=== PATIENT | female | born 1935 | race Caucasian/White ===

== ENCOUNTER → 2016-07-12 | Outpatient (REF) | payer MEDICARE ==
[2016-07-12 18:45] LABS: BASO # 0.1 K/mm3 (0.0-0.2); BASO % 1.4 % (0.0-1.0); EOS # 0.3 K/mm3 (0.0-0.50); EOS % 4.9 % (0.0-3.0); LARGE UNSTAINED CELL # 0.1 K/mm3 (0.0-0.4); LARGE UNSTAINED CELL % 1.1 % (0.0-4.0); LYMPH % 18.1 % (24.0-44.0); MEAN CORPUSCULAR HEMOGLOBIN 30.2 pg (27.0-33.0); MEAN CORPUSCULAR HGB CONC 32.1 g/dl (32.0-36.5); MEAN CORPUSCULAR VOLUME 94.2 fl (80.0-96.0); MONO # 0.4 K/mm3 (0.0-0.8); MONO % 6.6 % (0.0-5.0); NEUTROPHILS # 3.6 K/mm3 (1.8-7.7); PLATELET COUNT, AUTOMATED 242 k/mm3 (150-450); RED CELL DISTRIBUTION WIDTH 13.8 % (11.5-14.5); WHITE BLOOD COUNT 5.3 K/mm3 (4.0-10.0)
[2016-07-12 19:25] LABS: FOLATE > 24.0 NG/ML; VITAMIN B12 LEVEL 745 PG/ML
[2016-07-12 19:49] LABS: ALBUMIN 3.7 GM/DL (3.2-5.2); ALBUMIN/GLOBULIN RATIO 1.16 (1.00-1.93); ALKALINE PHOSPHATASE 101 U/L (45-117); ALT/SGPT 26 U/L (12-78); ANION GAP 11 MEQ/L (8-16); AST/SGOT 19 U/L (15-37); BILIRUBIN,TOTAL 0.3 MG/DL (0.2-1.0); BLOOD UREA NITROGEN 51 MG/DL (7-18); CALCIUM LEVEL 9.2 MG/DL (8.8-10.2); CARBON DIOXIDE LEVEL 27 MEQ/L (21-32); CHLORIDE LEVEL 105 MEQ/L (98-107); CREATININE FOR GFR 1.76 MG/DL (0.55-1.02); FREE T4 1.02 NG/DL (0.76-1.46); GLOMERULAR FILTRATION RATE 29.4 (>32); GLUCOSE, FASTING 112 MG/DL (83-110); SODIUM LEVEL 143 MEQ/L (136-145); TOTAL PROTEIN 6.9 GM/DL (6.4-8.2)
[2016-07-12 21:54] LABS: ERYTHROCYTE SEDIMENTATION RATE 46 mm/hr (0-30)
== END ==
LOC: M SFHCCLAY 11:01
PROVIDERS: ATTEND Family Medicine
DX: R41.3 Other amnesia (principal)

== ENCOUNTER → 2016-10-16 | Outpatient (CLI) | payer MEDICARE ==
--- NOTE | 2016-10-16 15:16 | REP ---
RIGHT ELBOW: Two views of the right elbow are performed. There is no acute fracture or dislocation. Mild diffuse spurring is noted with mild joint space narrowing. There is mild soft tissue swelling at the olecranon. IMPRESSION: Mild soft tissue swelling of the olecranon could indicate bursitis. Mild degenerative changes. Signed by Seferino Bowman MD 10/17/2016 04:44 P
== END ==
LOC: M CLY 11:33
PROVIDERS: ATTEND Family Medicine
DX: M77.8 Other enthesopathies, not elsewhere classified (principal); R41.3 Other amnesia; E03.9 Hypothyroidism, unspecified
CPT/HCPCS: 73070; 80048; 84443; 90670; G0009; G0463

== ENCOUNTER → 2016-10-24 | Outpatient (REF) | payer MEDICARE | LOC: M SMT 16:56 | PROVIDERS: ATTEND Specialist | DX: R32 Unspecified urinary incontinence (principal) | CPT/HCPCS: 51798; 81002; 87086; G0463 ==

== ENCOUNTER → 2016-10-29 | Outpatient (CLI) | payer MEDICARE ==
--- NOTE | 2016-10-29 18:05 | REP ---
RENAL ULTRASOUND: REASON: Incontinence. COMPARISON: None. Multiple ultrasonographic images of the right kidney show the right kidney to measure 10.3 x 4.6 x 4.6 cm. The renal cortex is thinned and there are diffuse increased echoes seen throughout the cortex with maintenance of cortical medullary differentiation. There are no cystic or solid masses. The left kidney measures 9.3 x 4.1 x 4.8 cm. There is renal cortical thinning with slightly increased echoes throughout the renal cortex . In the interpolar region of the left kidney there is a 3.7 x 3.8 x 3.9 cm sized nearly anechoic structure but with irregular margins. A mural nodule can not be ruled out on the images provided. In addition, also seen in the left there is much smaller 9 mm sized anechoic structure which exhibits posterior wall advancement an increase through transmission. Pre- and post- void urinary bladder volume calculations were obtained. The pre void urinary bladder volume calculation is 78 mL and the postvoid is 23 mL. On scanning the right kidney the technologist noted cholelithiasis. IMPRESSION: 1. Bilateral renal cortical thinning and increased echoes consistent with medical renal disease. Correlate clinically. 2. Left sided renal cysts, however, I can not confirm that the large left cyst represents a Bosniak class 1 or Bosniak class 2 cyst. It is recommended that the patient obtain pre and post contrast enhanced renal CT so it can be compared to the prior abdominal CT of 09/15/2013 to ensure the renal cysts on the left are stable and without evidence of malignant transformation. Signed by Steven Dumont DO 10/30/2016 10:20 A
== END ==
LOC: M RAD 12:55
PROVIDERS: ATTEND Nurse Practitioner Women's Health
DX: R32 Unspecified urinary incontinence (principal); N28.1 Cyst of kidney, acquired

== ENCOUNTER → 2016-12-31 | Outpatient (REF) | payer MEDICARE ==
[2016-12-31 12:44] LABS: MEAN CORPUSCULAR HEMOGLOBIN 30.4 pg (27.0-33.0); MEAN CORPUSCULAR VOLUME 95.1 fl (80.0-96.0); RED CELL DISTRIBUTION WIDTH 12.8 % (11.5-14.5); WHITE BLOOD COUNT 4.5 K/mm3 (4.0-10.0)
[2016-12-31 13:19] LABS: ALBUMIN 3.6 GM/DL (3.2-5.2); ALBUMIN/GLOBULIN RATIO 1.2 (1.00-1.93); BILIRUBIN,TOTAL 0.5 MG/DL (0.2-1.0); CALCIUM LEVEL 9.9 MG/DL (8.8-10.2); CREATININE FOR GFR 1.91 MG/DL (0.55-1.02); GLOMERULAR FILTRATION RATE 26.7 (>32); POTASSIUM SERUM 4.6 MEQ/L (3.5-5.1); TOTAL PROTEIN 6.6 GM/DL (6.4-8.2)
== END ==
LOC: M LABDRAWC 11:56
PROVIDERS: ATTEND Physician Assistant
DX: I50.32 Chronic diastolic (congestive) heart failure (principal); E78.00 Pure hypercholesterolemia, unspecified

== ENCOUNTER → 2016-12-31 | Outpatient (REF) | payer MEDICARE ==
[2016-12-31 13:19] LABS: CALCIUM LEVEL 9.6 MG/DL (8.8-10.2); CREATININE FOR GFR 1.9 MG/DL (0.55-1.02); FREE T4 1.08 NG/DL (0.76-1.46); GLOMERULAR FILTRATION RATE 26.9 (>32); POTASSIUM SERUM 4.6 MEQ/L (3.5-5.1)
== END ==
LOC: M SFHCCLAY 09:05
PROVIDERS: ATTEND Family Medicine
DX: E03.9 Hypothyroidism, unspecified (principal); I50.32 Chronic diastolic (congestive) heart failure; E78.00 Pure hypercholesterolemia, unspecified

== ENCOUNTER → 2017-01-20 | Outpatient (REF) | payer MEDICARE ==
[2017-01-20 13:10] LABS: MEAN CORPUSCULAR HEMOGLOBIN 30.4 pg (27.0-33.0); MEAN CORPUSCULAR HGB CONC 32.5 g/dl (32.0-36.5); MEAN CORPUSCULAR VOLUME 93.3 fl (80.0-96.0); RED CELL DISTRIBUTION WIDTH 12.7 % (11.5-14.5); WHITE BLOOD COUNT 4.2 K/mm3 (4.0-10.0)
[2017-01-20 13:27] LABS: ALBUMIN 3.8 GM/DL (3.2-5.2); CALCIUM LEVEL 10.5 MG/DL (8.8-10.2); CREATININE FOR GFR 1.63 MG/DL (0.55-1.02); GLOMERULAR FILTRATION RATE 32.1 (>32); PHOSPHORUS LEVEL 3.7 MG/DL (2.5-4.9); POTASSIUM SERUM 4.1 MEQ/L (3.5-5.1)
== END ==
LOC: M LABDRAWC 11:47
PROVIDERS: ATTEND Physician Assistant
DX: I50.32 Chronic diastolic (congestive) heart failure (principal)

== ENCOUNTER → 2017-02-26 | Outpatient (CLI) | payer MEDICARE ==
--- NOTE | 2017-02-26 15:41 | REP ---
Clinical: Cervical pain. Arthritis. Technique: AP, lateral, flexion/extension, bilateral oblique and open mouth views of the cervical spine. Findings: Evaluation is severely limited by significant osteopenia and marked, advanced multilevel degenerative disc osteophyte complexes throughout the entire cervical spine. Findings include hypertrophic changes and narrowing to the neural foramina on oblique images. No obvious acute fracture / compression injury or subluxation. Impression: Marked, advanced osteopenia and multilevel degenerative changes throughout the cervical spine.
== END ==
LOC: M CLY 14:51
PROVIDERS: ATTEND Family Medicine
DX: M46.92 Unspecified inflammatory spondylopathy, cervical region (principal); M50.30 Other cervical disc degeneration, unspecified cervical region; M85.80 Other specified disorders of bone density and structure, unspecified site
CPT/HCPCS: 72050; G0463

== ENCOUNTER → 2017-05-05 | Outpatient (REF) | payer MEDICARE ==
[2017-05-06 12:57] LABS: ALBUMIN 3.9 GM/DL (3.2-5.2); CALCIUM LEVEL 9.7 MG/DL (8.8-10.2); CREATININE FOR GFR 1.66 MG/DL (0.55-1.02); GLOMERULAR FILTRATION RATE 31.3 (>32); PHOSPHORUS LEVEL 3.6 MG/DL (2.5-4.9); POTASSIUM SERUM 4.4 MEQ/L (3.5-5.1)
== END ==
LOC: M LAB REF 11:56
PROVIDERS: ATTEND Physician Assistant
DX: I50.32 Chronic diastolic (congestive) heart failure (principal)

== ENCOUNTER → 2017-08-18 | Outpatient (REF) | payer MEDICARE ==
[2017-08-19 12:40] LABS: ALBUMIN 3.9 GM/DL (3.2-5.2); ALBUMIN/GLOBULIN RATIO 1.22 (1.00-1.93); ALKALINE PHOSPHATASE 66 U/L (45-117); ALT/SGPT 21 U/L (12-78); ANION GAP 7 MEQ/L (8-16); AST/SGOT 24 U/L (7-37); BILIRUBIN,TOTAL 0.6 MG/DL (0.2-1.0); BLOOD UREA NITROGEN 26 MG/DL (7-18); CALCIUM LEVEL 9.5 MG/DL (8.8-10.2); CARBON DIOXIDE LEVEL 31 MEQ/L (21-32); CHLORIDE LEVEL 104 MEQ/L (98-107); CREATININE FOR GFR 1.38 MG/DL (0.55-1.30); GLOMERULAR FILTRATION RATE 38.8 (>32); GLUCOSE, FASTING 101 MG/DL (70-100); POTASSIUM SERUM 4.1 MEQ/L (3.5-5.1); SODIUM LEVEL 142 MEQ/L (136-145); TOTAL PROTEIN 7.1 GM/DL (6.4-8.2)
== END ==
LOC: M LABDRAWC 08-19 12:08
DX: E78.00 Pure hypercholesterolemia, unspecified (principal); I11.0 Hypertensive heart disease with heart failure
CPT/HCPCS: 80053

== ENCOUNTER → 2017-09-10 | Outpatient (REF) | payer MEDICARE ==
[2017-09-10 18:32] LABS: ERYTHROCYTE SEDIMENTATION RATE 49 mm/hr (0-30)
== END ==
LOC: M SFHCCLAY 11:26
DX: R51 Headache (principal)
CPT/HCPCS: 85652

== ENCOUNTER 2017-10-29 15:13 | Inpatient (IN) | payer MEDICARE ==
[2017-10-29 16:20] LABS: BASO % 0.3 % (0.0-1.0); EOS # 0.1 10^3/uL (0.0-0.50); EOS % 0.7 % (0.0-3.0); HEMATOCRIT 32.9 % (36.0-47.0); HEMOGLOBIN 10.8 g/dl (12.0-15.5); IMMATURE GRANULOCYTE % 0.3 % (0-3.0); LYMPH # 1.2 10^3/uL (1.5-4.5); LYMPH % 11.7 % (24.0-44.0); MEAN CORPUSCULAR HEMOGLOBIN 29.3 pg (27.0-33.0); MEAN CORPUSCULAR HGB CONC 32.8 g/dl (32.0-36.5); MEAN CORPUSCULAR VOLUME 89.2 fl (80.0-96.0); MONO % 9.4 % (0.0-5.0); NEUTROPHILS # 8.1 10^3/uL (1.8-7.7); NEUTROPHILS % 77.6 % (36.0-66.0); PLATELET COUNT, AUTOMATED 324 10^3/uL (150-450); RED BLOOD COUNT 3.69 10^6/uL (4.00-5.40); RED CELL DISTRIBUTION WIDTH 13.3 % (11.5-14.5); WHITE BLOOD COUNT 10.4 10^3/uL (4.0-10.0)
[2017-10-29 16:40] LABS: ERYTHROCYTE SEDIMENTATION RATE 73 mm/hr (0-30)
[2017-10-29 16:42] LABS: LACTIC ACID SEPSIS PROTOCOL 0.9 MMOL/L (0.4-2.0)
[2017-10-29 16:43] LABS: ALBUMIN 3.6 GM/DL (3.2-5.2); ALBUMIN/GLOBULIN RATIO 0.95 (1.00-1.93); ALKALINE PHOSPHATASE 93 U/L (45-117); ALT/SGPT 23 U/L (12-78); ANION GAP 6 MEQ/L (8-16); AST/SGOT 26 U/L (7-37); BILIRUBIN,DIRECT 0.4 MG/DL (0.0-0.2); BILIRUBIN,TOTAL 1.1 MG/DL (0.2-1.0); BLOOD UREA NITROGEN 43 MG/DL (7-18); CALCIUM LEVEL 9.2 MG/DL (8.8-10.2); CARBON DIOXIDE LEVEL 33 MEQ/L (21-32); CHLORIDE LEVEL 97 MEQ/L (98-107); CREATININE FOR GFR 1.56 MG/DL (0.55-1.30); GLOMERULAR FILTRATION RATE 33.7 (>32); GLUCOSE, FASTING 90 MG/DL (70-100); NT-PRO BNP 758 PG/ML (<450); POTASSIUM SERUM 3.9 MEQ/L (3.5-5.1); SODIUM LEVEL 136 MEQ/L (136-145); TOTAL PROTEIN 7.4 GM/DL (6.4-8.2)
[2017-10-29 18:23] LABS: APPEARANCE, URINE CLEAR (CLEAR); BACTERIA, URINE AUTO NEGATIVE (NEGATIVE); BILIRUBIN, URINE AUTO NEGATIVE (NEGATIVE); BLOOD, URINE BLOOD NEGATIVE (NEGATIVE); COLOR, URINE STRAW (YELLOW); GLUCOSE, URINE (UA) AUTO NEGATIVE (NEGATIVE); KETONE, URINE AUTO NEGATIVE (NEGATIVE); LEUKOCYTE ESTERASE, URINE AUTO NEGATIVE (NEGATIVE); NITRITE, URINE AUTO NEGATIVE (NEGATIVE); PROTEIN, URINE AUTO NEGATIVE (NEGATIVE); RBC, URINE AUTO 1 /HPF (0-3); SPECIFIC GRAVITY URINE AUTO 1.005 (1.002-1.035); SQUAMOUS EPITHELIAL CELL UR AU 0 /HPF (0-6); UROBILINOGEN, URINE AUTO 0.2 mg/dL (0.0-2.0); WBC, URINE AUTO 0 /HPF (0-3)
[2017-10-29] MEDS: CLINDAMYCIN 300 MG in APPROPRIATE DILUENT 1 EA IV (18:40)
[2017-10-29] MEDS ORDERED: ONDANSETRON 4MG/2ML VIAL (J2405) IV (20:15)
[2017-10-29 20:41] LABS: CPK CREATINE PHOSPHOKINASE 85 U/L (26-192); TROPONIN I < 0.02 NG/ML (< 0.10)
[2017-10-29 20:42] LABS: CK-MB VALUE MASS 2.2 NG/ML (<3.6); MB/CK RELATIVE INDEX 2.58 (< OR =4)
[2017-10-29 20:46] LABS: T UPTAKE 43 % (30-39); THYROXINE (T4) 9.2 UG/DL (4.5-12.0)
[2017-10-29] MEDS: CEFTAROLINE FOSAMIL 400 MG in D5W MINI-BAG PLUS 50 ML IV (21:00)
[2017-10-30] MEDS: SENOKOT S TAB PO ×3 (00:39→20:25)
[2017-10-30] MEDS: HEPARIN SOD (PORCINE) 5000 UNITS/ML VIAL SC ×4 (00:39→20:24)
[2017-10-30 01:08] LABS: CPK CREATINE PHOSPHOKINASE 81 U/L (26-192); TROPONIN I < 0.02 NG/ML (< 0.10)
[2017-10-30 01:09] LABS: CK-MB VALUE MASS 1.7 NG/ML (<3.6); MB/CK RELATIVE INDEX 2.09 (< OR =4)
[2017-10-30] MEDS: LEVOTHYROXINE 25MCG TABLET (0.025MG) PO (05:28)
[2017-10-30 06:05] LABS: HEMATOCRIT 30.6 % (36.0-47.0); MEAN CORPUSCULAR HEMOGLOBIN 29.2 pg (27.0-33.0); MEAN CORPUSCULAR HGB CONC 32.7 g/dl (32.0-36.5); MEAN CORPUSCULAR VOLUME 89.5 fl (80.0-96.0); PLATELET COUNT, AUTOMATED 306 10^3/uL (150-450); RED BLOOD COUNT 3.42 10^6/uL (4.00-5.40); RED CELL DISTRIBUTION WIDTH 13.3 % (11.5-14.5); WHITE BLOOD COUNT 8.7 10^3/uL (4.0-10.0)
[2017-10-30 06:34] LABS: ANION GAP 8 MEQ/L (8-16); BLOOD UREA NITROGEN 42 MG/DL (7-18); CALCIUM LEVEL 9.1 MG/DL (8.8-10.2); CARBON DIOXIDE LEVEL 32 MEQ/L (21-32); CHLORIDE LEVEL 98 MEQ/L (98-107); CREATININE FOR GFR 1.55 MG/DL (0.55-1.30); GLOMERULAR FILTRATION RATE 33.9 (>32); GLUCOSE, FASTING 89 MG/DL (70-100); MAGNESIUM LEVEL 2.7 MG/DL (1.8-2.4); POTASSIUM SERUM 3.7 MEQ/L (3.5-5.1); SODIUM LEVEL 138 MEQ/L (136-145)
[2017-10-30] MEDS: SPIRONOLACTONE 25 MG TAB PO (07:47)
[2017-10-30] MEDS: TORSEMIDE 20 MG TAB PO (07:48)
[2017-10-30] MEDS: ASPIRIN 81 MG ENTERIC TAB PO (07:48)
[2017-10-30] MEDS: DONEPEZIL 5 MG TAB PO (07:48)
[2017-10-30] MEDS: MULTIVITAMINS/MINERALS THERAP 1 TAB PO (07:48)
[2017-10-30] MEDS: CEFTAROLINE FOSAMIL 400 MG in D5W MINI-BAG PLUS 50 ML IV ×2 (07:49→20:25)
[2017-10-31 05:44] LABS: HEMOGLOBIN 9.4 g/dl (12.0-15.5); MEAN CORPUSCULAR HEMOGLOBIN 29.2 pg (27.0-33.0); MEAN CORPUSCULAR HGB CONC 32.4 g/dl (32.0-36.5); MEAN CORPUSCULAR VOLUME 90.1 fl (80.0-96.0); PLATELET COUNT, AUTOMATED 281 10^3/uL (150-450); RED BLOOD COUNT 3.22 10^6/uL (4.00-5.40); WHITE BLOOD COUNT 6.2 10^3/uL (4.0-10.0)
[2017-10-31 06:02] LABS: ANION GAP 5 MEQ/L (8-16); BLOOD UREA NITROGEN 44 MG/DL (7-18); CALCIUM LEVEL 8.7 MG/DL (8.8-10.2); CARBON DIOXIDE LEVEL 32 MEQ/L (21-32); CHLORIDE LEVEL 102 MEQ/L (98-107); CREATININE FOR GFR 1.58 MG/DL (0.55-1.30); GLOMERULAR FILTRATION RATE 33.2 (>32); GLUCOSE, FASTING 95 MG/DL (70-100); MAGNESIUM LEVEL 2.5 MG/DL (1.8-2.4); SODIUM LEVEL 139 MEQ/L (136-145)
[2017-10-31] MEDS: LEVOTHYROXINE 25MCG TABLET (0.025MG) PO (06:21)
[2017-10-31] MEDS: HEPARIN SOD (PORCINE) 5000 UNITS/ML VIAL SC ×3 (06:22→21:14)
[2017-10-31] MEDS: SENOKOT S TAB PO ×2 (08:47→20:34)
[2017-10-31] MEDS: DONEPEZIL 5 MG TAB PO (08:47)
[2017-10-31] MEDS: ASPIRIN 81 MG ENTERIC TAB PO (08:47)
[2017-10-31] MEDS: SPIRONOLACTONE 25 MG TAB PO (08:47)
[2017-10-31] MEDS: MULTIVITAMINS/MINERALS THERAP 1 TAB PO (08:47)
[2017-10-31] MEDS: TORSEMIDE 20 MG TAB PO (08:47)
[2017-10-31] MEDS: CEFTAROLINE FOSAMIL 400 MG in D5W MINI-BAG PLUS 50 ML IV ×2 (08:47→20:34)
[2017-11-01 05:32] LABS: HEMATOCRIT 30.6 % (36.0-47.0); HEMOGLOBIN 9.8 g/dl (12.0-15.5); MEAN CORPUSCULAR HEMOGLOBIN 28.9 pg (27.0-33.0); MEAN CORPUSCULAR VOLUME 90.3 fl (80.0-96.0); PLATELET COUNT, AUTOMATED 318 10^3/uL (150-450); RED BLOOD COUNT 3.39 10^6/uL (4.00-5.40); WHITE BLOOD COUNT 5.3 10^3/uL (4.0-10.0)
[2017-11-01 05:45] LABS: ANION GAP 5 MEQ/L (8-16); BLOOD UREA NITROGEN 39 MG/DL (7-18); CALCIUM LEVEL 9.1 MG/DL (8.8-10.2); CARBON DIOXIDE LEVEL 32 MEQ/L (21-32); CHLORIDE LEVEL 99 MEQ/L (98-107); CREATININE FOR GFR 1.56 MG/DL (0.55-1.30); GLOMERULAR FILTRATION RATE 33.7 (>32); GLUCOSE, FASTING 91 MG/DL (70-100); MAGNESIUM LEVEL 2.6 MG/DL (1.8-2.4); POTASSIUM SERUM 3.8 MEQ/L (3.5-5.1); SODIUM LEVEL 136 MEQ/L (136-145)
[2017-11-01] MEDS: LEVOTHYROXINE 25MCG TABLET (0.025MG) PO (06:34)
[2017-11-01] MEDS: ACETAMINOPHEN TAB 650MG DOSE (2X325MG) PO (06:35)
[2017-11-01] MEDS: HEPARIN SOD (PORCINE) 5000 UNITS/ML VIAL SC ×3 (06:35→21:06)
[2017-11-01] MEDS: ASPIRIN 81 MG ENTERIC TAB PO (08:48)
[2017-11-01] MEDS: DONEPEZIL 5 MG TAB PO (08:48)
[2017-11-01] MEDS: SPIRONOLACTONE 25 MG TAB PO (08:48)
[2017-11-01] MEDS: TORSEMIDE 20 MG TAB PO (08:48)
[2017-11-01] MEDS: CEFTAROLINE FOSAMIL 400 MG in D5W MINI-BAG PLUS 50 ML IV (08:48)
[2017-11-01] MEDS: SENOKOT S TAB PO ×2 (08:48→21:06)
[2017-11-01] MEDS: MULTIVITAMINS/MINERALS THERAP 1 TAB PO (08:48)
[2017-11-01] MEDS: CEPHALEXIN 500 MG CAP PO (21:06)
[2017-11-02 05:50] LABS: HEMATOCRIT 30.8 % (36.0-47.0); HEMOGLOBIN 9.9 g/dl (12.0-15.5); MEAN CORPUSCULAR HEMOGLOBIN 28.8 pg (27.0-33.0); MEAN CORPUSCULAR HGB CONC 32.1 g/dl (32.0-36.5); MEAN CORPUSCULAR VOLUME 89.5 fl (80.0-96.0); PLATELET COUNT, AUTOMATED 340 10^3/uL (150-450); RED BLOOD COUNT 3.44 10^6/uL (4.00-5.40); RED CELL DISTRIBUTION WIDTH 12.9 % (11.5-14.5); WHITE BLOOD COUNT 4.4 10^3/uL (4.0-10.0)
[2017-11-02 06:06] LABS: ANION GAP 6 MEQ/L (8-16); BLOOD UREA NITROGEN 38 MG/DL (7-18); C REACTIVE PROTEIN QUANTITATIV 7.53 MG/DL (0.00-0.30); CALCIUM LEVEL 9.1 MG/DL (8.8-10.2); CARBON DIOXIDE LEVEL 32 MEQ/L (21-32); CHLORIDE LEVEL 101 MEQ/L (98-107); CREATININE FOR GFR 1.66 MG/DL (0.55-1.30); GLOMERULAR FILTRATION RATE 31.3 (>32); GLUCOSE, FASTING 86 MG/DL (70-100); POTASSIUM SERUM 3.7 MEQ/L (3.5-5.1); SODIUM LEVEL 139 MEQ/L (136-145)
[2017-11-02] MEDS: LEVOTHYROXINE 25MCG TABLET (0.025MG) PO (06:18)
[2017-11-02] MEDS: HEPARIN SOD (PORCINE) 5000 UNITS/ML VIAL SC ×3 (06:18→21:43)
[2017-11-02] MEDS: ACETAMINOPHEN TAB 650MG DOSE (2X325MG) PO ×2 (06:46→20:24)
[2017-11-02] MEDS: SENOKOT S TAB PO ×2 (08:21→20:23)
[2017-11-02] MEDS: SPIRONOLACTONE 25 MG TAB PO (08:21)
[2017-11-02] MEDS: ASPIRIN 81 MG ENTERIC TAB PO (08:21)
[2017-11-02] MEDS: DONEPEZIL 5 MG TAB PO (08:22)
[2017-11-02] MEDS: TORSEMIDE 20 MG TAB PO (08:22)
[2017-11-02] MEDS: CEPHALEXIN 500 MG CAP PO ×2 (08:22→20:23)
[2017-11-02] MEDS: MULTIVITAMINS/MINERALS THERAP 1 TAB PO (08:22)
[2017-11-03] MEDS: LEVOTHYROXINE 25MCG TABLET (0.025MG) PO (05:58)
[2017-11-03] MEDS: HEPARIN SOD (PORCINE) 5000 UNITS/ML VIAL SC (05:58)
[2017-11-03 06:01] LABS: HEMATOCRIT 31.5 % (36.0-47.0); HEMOGLOBIN 10.2 g/dl (12.0-15.5); MEAN CORPUSCULAR HEMOGLOBIN 29.1 pg (27.0-33.0); MEAN CORPUSCULAR HGB CONC 32.4 g/dl (32.0-36.5); PLATELET COUNT, AUTOMATED 331 10^3/uL (150-450); RED CELL DISTRIBUTION WIDTH 12.9 % (11.5-14.5); WHITE BLOOD COUNT 4.4 10^3/uL (4.0-10.0)
[2017-11-03 06:10] LABS: ANION GAP 7 MEQ/L (8-16); BLOOD UREA NITROGEN 37 MG/DL (7-18); C REACTIVE PROTEIN QUANTITATIV 5.35 MG/DL (0.00-0.30); CARBON DIOXIDE LEVEL 31 MEQ/L (21-32); CHLORIDE LEVEL 101 MEQ/L (98-107); CREATININE FOR GFR 1.79 MG/DL (0.55-1.30); GLOMERULAR FILTRATION RATE 28.7 (>32); GLUCOSE, FASTING 86 MG/DL (70-100); POTASSIUM SERUM 3.8 MEQ/L (3.5-5.1); SODIUM LEVEL 139 MEQ/L (136-145)
[2017-11-03] MEDS: SPIRONOLACTONE 25 MG TAB PO (08:53)
[2017-11-03] MEDS: ASPIRIN 81 MG ENTERIC TAB PO (08:53)
[2017-11-03] MEDS: SENOKOT S TAB PO (08:53)
[2017-11-03] MEDS: DONEPEZIL 5 MG TAB PO (08:53)
[2017-11-03] MEDS: CEPHALEXIN 500 MG CAP PO (08:53)
[2017-11-03] MEDS: MULTIVITAMINS/MINERALS THERAP 1 TAB PO (08:53)
== END 2017-11-03 14:22 | disposition home health service (06) | DRG 603 ==
LOC: M ED 15:13 → M ED INP 20:13 → M MSPAV 23:29
DX: L03.115 Cellulitis of right lower limb (principal); Z68.41 Body mass index [BMI] 40.0-44.9, adult; I13.0 Hypertensive heart and chronic kidney disease with heart failure and stage 1 through stage 4 chronic kidney disease, or unspecified chronic kidney disease; L97.819 Non-pressure chronic ulcer of other part of right lower leg with unspecified severity; E66.9 Obesity, unspecified; F03.90 Unspecified dementia, unspecified severity, without behavioral disturbance, psychotic disturbance, mood disturbance, and anxiety; L03.116 Cellulitis of left lower limb; I83.018 Varicose veins of right lower extremity with ulcer other part of lower leg; N18.3 Chronic kidney disease, stage 3 (moderate); I50.9 Heart failure, unspecified; E03.9 Hypothyroidism, unspecified; G47.33 Obstructive sleep apnea (adult) (pediatric); R29.6 Repeated falls; Z96.653 Presence of artificial knee joint, bilateral; Z90.711 Acquired absence of uterus with remaining cervical stump; Z87.891 Personal history of nicotine dependence; Z79.82 Long term (current) use of aspirin; Z79.899 Other long term (current) drug therapy; Z99.89 Dependence on other enabling machines and devices

== ENCOUNTER → 2017-11-28 | Outpatient (REF) | payer MEDICARE ==
[2017-11-28 11:51] LABS: ALBUMIN 3.7 GM/DL (3.2-5.2); ALKALINE PHOSPHATASE 79 U/L (45-117); ALT/SGPT 24 U/L (12-78); ANION GAP 5 MEQ/L (8-16); AST/SGOT 25 U/L (7-37); BILIRUBIN,TOTAL 0.6 MG/DL (0.2-1.0); BLOOD UREA NITROGEN 40 MG/DL (7-18); CALCIUM LEVEL 9.4 MG/DL (8.8-10.2); CARBON DIOXIDE LEVEL 32 MEQ/L (21-32); CHLORIDE LEVEL 102 MEQ/L (98-107); CREATININE FOR GFR 1.53 MG/DL (0.55-1.30); GLOMERULAR FILTRATION RATE 34.4 (>32); GLUCOSE, FASTING 80 MG/DL (70-100); POTASSIUM SERUM 4.5 MEQ/L (3.5-5.1); SODIUM LEVEL 139 MEQ/L (136-145); TOTAL PROTEIN 7.4 GM/DL (6.4-8.2)
== END ==
LOC: M SFHCCLAY 09:18
DX: N18.3 Chronic kidney disease, stage 3 (moderate) (principal)
CPT/HCPCS: 80053

== ENCOUNTER → 2017-11-28 | Outpatient (REF) | payer MEDICARE ==
[2017-11-28 11:52] LABS: ANION GAP 7 MEQ/L (8-16); BLOOD UREA NITROGEN 41 MG/DL (7-18); CALCIUM LEVEL 9.4 MG/DL (8.8-10.2); CARBON DIOXIDE LEVEL 32 MEQ/L (21-32); CHLORIDE LEVEL 102 MEQ/L (98-107); CREATININE FOR GFR 1.56 MG/DL (0.55-1.30); GLOMERULAR FILTRATION RATE 33.7 (>32); GLUCOSE, FASTING 82 MG/DL (70-100); POTASSIUM SERUM 4.5 MEQ/L (3.5-5.1); SODIUM LEVEL 141 MEQ/L (136-145)
== END ==
LOC: M LABDRAWC 11:19
DX: I50.32 Chronic diastolic (congestive) heart failure (principal)

== ENCOUNTER → 2018-01-13 | Outpatient (REF) | payer MEDICARE ==
[2018-01-13 18:20] LABS: ANION GAP 8 MEQ/L (8-16); BLOOD UREA NITROGEN 36 MG/DL (7-18); CALCIUM LEVEL 9.2 MG/DL (8.8-10.2); CARBON DIOXIDE LEVEL 31 MEQ/L (21-32); CHLORIDE LEVEL 104 MEQ/L (98-107); CREATININE FOR GFR 1.53 MG/DL (0.55-1.30); GLOMERULAR FILTRATION RATE 34.4 (>32); GLUCOSE, FASTING 80 MG/DL (70-100); POTASSIUM SERUM 3.9 MEQ/L (3.5-5.1); SODIUM LEVEL 143 MEQ/L (136-145)
== END ==
LOC: M LABDRAWC 17:26
DX: I50.32 Chronic diastolic (congestive) heart failure (principal)
CPT/HCPCS: 80048

== ENCOUNTER → 2018-05-19 | Outpatient (REF) | payer MEDICARE ==
[2018-05-19 11:38] LABS: ALBUMIN 3.5 GM/DL (3.2-5.2); ALBUMIN/GLOBULIN RATIO 1.03 (1.00-1.93); ALKALINE PHOSPHATASE 75 U/L (45-117); ALT/SGPT 22 U/L (12-78); ANION GAP 7 MEQ/L (8-16); AST/SGOT 22 U/L (7-37); BILIRUBIN,TOTAL 0.5 MG/DL (0.2-1.0); BLOOD UREA NITROGEN 34 MG/DL (7-18); CALCIUM LEVEL 9.2 MG/DL (8.8-10.2); CARBON DIOXIDE LEVEL 32 MEQ/L (21-32); CHLORIDE LEVEL 101 MEQ/L (98-107); CHOLESTEROL LEVEL 195 MG/DL (<200); CHOLESTEROL RISK RATIO 2.954 (<5); CREATININE FOR GFR 1.56 MG/DL (0.55-1.30); GLOMERULAR FILTRATION RATE 33.6 (>32); GLUCOSE, FASTING 95 MG/DL (70-100); HDL CHOLESTEROL 66 MG/DL (>40); LDL CHOLESTEROL 113 MG/DL (<100); NON-HDL-C 129 MG/DL; POTASSIUM SERUM 3.7 MEQ/L (3.5-5.1); SODIUM LEVEL 140 MEQ/L (136-145); TOTAL PROTEIN 6.9 GM/DL (6.4-8.2); TRIGLYCERIDES LEVEL 81 MG/DL (<150)
== END ==
LOC: M LABDRAWC 11:02
DX: I50.32 Chronic diastolic (congestive) heart failure (principal); E78.00 Pure hypercholesterolemia, unspecified; I87.333 Chronic venous hypertension (idiopathic) with ulcer and inflammation of bilateral lower extremity
CPT/HCPCS: 80053

== ENCOUNTER → 2018-07-07 | Outpatient (REF) ==
[~2018-07-07] MED LIST: ASPI1TAB PO; CALCTAB68 PO; CEPH500C PO; DONE1TAB62 PO; DONE5TAB82 PO; RAMI1CAP21 PO; RAMI1CAP22 PO; SPIR-10 PO; SYNT25TA PO; TORS20TA2 PO; TYLE500T78 PO; VITMTA PO
[2018-07-07 10:07] LABS: HEMATOCRIT 33.1 % (36.0-47.0); HEMOGLOBIN 10.7 g/dl (12.0-15.5); MEAN CORPUSCULAR HEMOGLOBIN 28.8 pg (27.0-33.0); MEAN CORPUSCULAR HGB CONC 32.3 g/dl (32.0-36.5); PLATELET COUNT, AUTOMATED 295 10^3/uL (150-450); RED BLOOD COUNT 3.72 10^6/uL (4.00-5.40); WHITE BLOOD COUNT 5.2 10^3/uL (4.0-10.0)
[2018-07-07 10:34] LABS: CALCIUM LEVEL 9.2 MG/DL (8.8-10.2); CREATININE FOR GFR 1.54 MG/DL (0.55-1.30); GLOMERULAR FILTRATION RATE 34.1 (>32); POTASSIUM SERUM 4.4 MEQ/L (3.5-5.1); THYROID STIMULATING HORMONE 2.62 uIU/ML (0.358-3.740)
== END ==
PROVIDERS: ATTEND Family Medicine
DX: E03.9 Hypothyroidism, unspecified (principal); I50.9 Heart failure, unspecified

== ENCOUNTER → 2018-07-16 | Outpatient (REF) ==
--- NOTE | 2018-07-16 16:23 | REP ---
Right knee: Portable exam two views. History: Unable to bear weight. Comparison right knee radiographs: October 29, 2017. Findings: There is diffuse osteopenia. A right knee arthroplasty is seen in place unchanged in position. No fracture is visible. No bony destructive lesion is seen. Vascular calcification is noted posteriorly. There is a mild heterotopic bone formation superiorly and anteriorly. Impression: Status post right knee arthroplasty. No acute bony abnormality. Electronically Signed by Ari Leigh MD 07/16/2018 04:15 P
== END ==
PROVIDERS: ATTEND Family Medicine
DX: M25.561 Pain in right knee (principal); Z96.651 Presence of right artificial knee joint

== ENCOUNTER → 2018-08-04 | Outpatient (REF) ==
[2018-08-04 09:59] LABS: HEMATOCRIT 34.7 % (36.0-47.0); HEMOGLOBIN 11.3 g/dl (12.0-15.5); MEAN CORPUSCULAR HEMOGLOBIN 28.8 pg (27.0-33.0); MEAN CORPUSCULAR HGB CONC 32.6 g/dl (32.0-36.5); MEAN CORPUSCULAR VOLUME 88.5 fl (80.0-96.0); PLATELET COUNT, AUTOMATED 281 10^3/uL (150-450); RED BLOOD COUNT 3.92 10^6/uL (4.00-5.40); WHITE BLOOD COUNT 4.8 10^3/uL (4.0-10.0)
[2018-08-04 10:34] LABS: CALCIUM LEVEL 9.3 MG/DL (8.8-10.2); CREATININE FOR GFR 1.34 MG/DL (0.55-1.30)
== END ==
PROVIDERS: ATTEND Family Medicine
DX: I50.9 Heart failure, unspecified (principal)

== ENCOUNTER → 2018-08-11 | Outpatient (REF) | payer MEDICARE, BC, OTHER ==
[2018-08-11 10:46] LABS: CALCIUM LEVEL 9.3 MG/DL (8.8-10.2); CREATININE FOR GFR 1.58 MG/DL (0.55-1.30); GLOMERULAR FILTRATION RATE 33.1 (>32); POTASSIUM SERUM 3.8 MEQ/L (3.5-5.1); THYROID STIMULATING HORMONE 3.34 uIU/ML (0.358-3.740)
== END ==
PROVIDERS: ATTEND Family Medicine
DX: I50.9 Heart failure, unspecified (principal)

== ENCOUNTER → 2018-09-01 | Outpatient (REF) | payer MEDICARE, BC, OTHER ==
[2018-09-02 09:50] LABS: HEMATOCRIT 37.1 % (36.0-47.0); MEAN CORPUSCULAR HEMOGLOBIN 29.3 pg (27.0-33.0); MEAN CORPUSCULAR HGB CONC 32.3 g/dl (32.0-36.5); MEAN CORPUSCULAR VOLUME 90.5 fl (80.0-96.0); PLATELET COUNT, AUTOMATED 263 10^3/uL (150-450); WHITE BLOOD COUNT 6.5 10^3/uL (4.0-10.0)
[2018-09-02 10:22] LABS: CALCIUM LEVEL 9.8 MG/DL (8.8-10.2); CREATININE FOR GFR 1.64 MG/DL (0.55-1.30); GLOMERULAR FILTRATION RATE 31.7 (>32); POTASSIUM SERUM 3.8 MEQ/L (3.5-5.1)
== END ==
PROVIDERS: ATTEND Family Medicine
DX: E03.9 Hypothyroidism, unspecified (principal)

== ENCOUNTER → 2018-09-18 | Outpatient (REF) | payer MEDICARE ==
[2018-09-18 11:20] LABS: CALCIUM LEVEL 8.9 MG/DL (8.8-10.2); CREATININE FOR GFR 1.22 MG/DL (0.55-1.30); GLOMERULAR FILTRATION RATE 44.6 (>32); POTASSIUM SERUM 4.1 MEQ/L (3.5-5.1)
== END ==
PROVIDERS: ATTEND Family Medicine
DX: I50.9 Heart failure, unspecified (principal)

== ENCOUNTER → 2018-09-29 | Outpatient (REF) | payer MEDICARE ==
[~2018-09-29] MED LIST changes: -ASPI1TAB PO; +ASPI81TA26 PO
[2018-09-29 09:44] LABS: CALCIUM LEVEL 9.3 MG/DL (8.8-10.2); CREATININE FOR GFR 1.48 MG/DL (0.55-1.30); GLOMERULAR FILTRATION RATE 35.7 (>32); POTASSIUM SERUM 3.8 MEQ/L (3.5-5.1)
== END ==
PROVIDERS: ATTEND Family Medicine
DX: I50.9 Heart failure, unspecified (principal)

== ENCOUNTER → 2018-10-06 | Outpatient (REF) | payer MEDICARE ==
[2018-10-06 09:50] LABS: CALCIUM LEVEL 9.4 MG/DL (8.8-10.2); CREATININE FOR GFR 1.55 MG/DL (0.55-1.30); GLOMERULAR FILTRATION RATE 33.8 (>32); POTASSIUM SERUM 3.8 MEQ/L (3.5-5.1)
== END ==
PROVIDERS: ATTEND Family Medicine
DX: I50.9 Heart failure, unspecified (principal)

== ENCOUNTER → 2018-10-13 | Outpatient (REF) | payer MEDICARE ==
[2018-10-13 09:54] LABS: CALCIUM LEVEL 9.2 MG/DL (8.8-10.2); CREATININE FOR GFR 1.46 MG/DL (0.55-1.30); GLOMERULAR FILTRATION RATE 36.2 (>32); POTASSIUM SERUM 3.8 MEQ/L (3.5-5.1)
== END ==
PROVIDERS: ATTEND Family Medicine
DX: I50.9 Heart failure, unspecified (principal)

== ENCOUNTER → 2018-11-26 | Outpatient (REF) | payer MEDICARE, BC, OTHER ==
[2018-11-26 20:08] LABS: APPEARANCE, URINE CLOUDY (CLEAR); BACTERIA, URINE AUTO 1+ (NEGATIVE); BILIRUBIN, URINE AUTO NEGATIVE (NEGATIVE); BLOOD, URINE BLOOD NEGATIVE (NEGATIVE); COLOR, URINE YELLOW (YELLOW); GLUCOSE, URINE (UA) AUTO NEGATIVE (NEGATIVE); KETONE, URINE AUTO NEGATIVE (NEGATIVE); LEUKOCYTE ESTERASE, URINE AUTO 3+ (NEGATIVE); NITRITE, URINE AUTO NEGATIVE (NEGATIVE); PROTEIN, URINE AUTO NEGATIVE (NEGATIVE); RBC, URINE AUTO 16 /HPF (0-3); SPECIFIC GRAVITY URINE AUTO 1.006 (1.002-1.035); SQUAMOUS EPITHELIAL CELL UR AU 0 /HPF (0-6); UROBILINOGEN, URINE AUTO 0.2 mg/dL (0.0-2.0); WBC, URINE AUTO TNTC /HPF (0-3)
== END ==
PROVIDERS: ATTEND Family Medicine
DX: R30.0 Dysuria (principal); R32 Unspecified urinary incontinence

== ENCOUNTER → 2018-12-16 | Outpatient (REF) | payer MEDICARE, BC, OTHER ==
[2018-12-16 12:37] LABS: APPEARANCE, URINE CLOUDY (CLEAR); BACTERIA, URINE AUTO 1+ (NEGATIVE); BILIRUBIN, URINE AUTO NEGATIVE (NEGATIVE); BLOOD, URINE BLOOD NEGATIVE (NEGATIVE); COLOR, URINE YELLOW (YELLOW); GLUCOSE, URINE (UA) AUTO NEGATIVE (NEGATIVE); KETONE, URINE AUTO NEGATIVE (NEGATIVE); LEUKOCYTE ESTERASE, URINE AUTO 3+ (NEGATIVE); MUCUS, URINE SMALL (NEGATIVE); NITRITE, URINE AUTO NEGATIVE (NEGATIVE); PROTEIN, URINE AUTO NEGATIVE (NEGATIVE); RBC, URINE AUTO 8 /HPF (0-3); SPECIFIC GRAVITY URINE AUTO 1.008 (1.002-1.035); SQUAMOUS EPITHELIAL CELL UR AU 0 /HPF (0-6); UROBILINOGEN, URINE AUTO 0.2 mg/dL (0.0-2.0); WBC, URINE AUTO TNTC /HPF (0-3)
== END ==
PROVIDERS: ATTEND Family Medicine
DX: R50.9 Fever, unspecified (principal)

== ENCOUNTER → 2019-02-02 | Outpatient (REF) | payer MEDICARE, BC, OTHER ==
[2019-02-02 09:50] LABS: HEMATOCRIT 36.4 % (36.0-47.0); HEMOGLOBIN 11.7 g/dl (12.0-15.5); MEAN CORPUSCULAR HEMOGLOBIN 29.1 pg (27.0-33.0); MEAN CORPUSCULAR HGB CONC 32.1 g/dl (32.0-36.5); MEAN CORPUSCULAR VOLUME 90.5 fl (80.0-96.0); PLATELET COUNT, AUTOMATED 274 10^3/uL (150-450); RED BLOOD COUNT 4.02 10^6/uL (4.00-5.40); WHITE BLOOD COUNT 4.6 10^3/uL (4.0-10.0)
[2019-02-02 10:30] LABS: CREATININE FOR GFR 1.5 MG/DL (0.55-1.30); GLOMERULAR FILTRATION RATE 35.1 (>32); POTASSIUM SERUM 3.7 MEQ/L (3.5-5.1); THYROID STIMULATING HORMONE 4.1 uIU/ML (0.358-3.740)
== END ==
PROVIDERS: ATTEND Family Medicine
DX: E03.9 Hypothyroidism, unspecified (principal); I50.9 Heart failure, unspecified

== ENCOUNTER → 2019-05-11 | Outpatient (REF) | payer MEDICARE, BC, OTHER ==
[2019-05-11 10:23] LABS: CALCIUM LEVEL 9.1 MG/DL (8.8-10.2); CREATININE FOR GFR 1.66 MG/DL (0.55-1.30); GLOMERULAR FILTRATION RATE 31.2 (>32); POTASSIUM SERUM 4.1 MEQ/L (3.5-5.1)
== END ==
PROVIDERS: ATTEND Family Medicine
DX: I50.9 Heart failure, unspecified (principal)

== ENCOUNTER → 2019-05-18 | Outpatient (REF) | payer MEDICARE, BC, OTHER ==
[2019-05-18 11:04] LABS: CALCIUM LEVEL 9.2 MG/DL (8.8-10.2); CREATININE FOR GFR 1.73 MG/DL (0.55-1.30); GLOMERULAR FILTRATION RATE 29.7 (>32); POTASSIUM SERUM 4.2 MEQ/L (3.5-5.1)
== END ==
PROVIDERS: ATTEND Family Medicine
DX: I50.20 Unspecified systolic (congestive) heart failure (principal)

== ENCOUNTER → 2019-06-01 | Outpatient (REF) | payer MEDICARE, BC, OTHER ==
[2019-06-01 12:27] LABS: ALBUMIN 3.5 GM/DL (3.2-5.2); CREATININE FOR GFR 1.57 MG/DL (0.55-1.30); GLOMERULAR FILTRATION RATE 33.3 (>32); MAGNESIUM LEVEL 2.6 MG/DL (1.8-2.4); PHOSPHORUS LEVEL 4.4 MG/DL (2.5-4.9); POTASSIUM SERUM 4.2 MEQ/L (3.5-5.1)
== END ==
PROVIDERS: ATTEND Family Medicine
DX: I50.20 Unspecified systolic (congestive) heart failure (principal)

== ENCOUNTER → 2019-06-04 | Outpatient (REF) | payer MEDICARE, BC, OTHER ==
[2019-06-04 13:48] LABS: APPEARANCE, URINE CLOUDY (CLEAR); BACTERIA, URINE AUTO 1+ (NEGATIVE); BILIRUBIN, URINE AUTO NEGATIVE (NEGATIVE); BLOOD, URINE BLOOD 1+ (NEGATIVE); COLOR, URINE YELLOW (YELLOW); GLUCOSE, URINE (UA) AUTO NEGATIVE (NEGATIVE); KETONE, URINE AUTO NEGATIVE (NEGATIVE); LEUKOCYTE ESTERASE, URINE AUTO 3+ (NEGATIVE); MUCUS, URINE SMALL (NEGATIVE); NITRITE, URINE AUTO NEGATIVE (NEGATIVE); PROTEIN, URINE AUTO NEGATIVE (NEGATIVE); RBC, URINE AUTO 48 /HPF (0-3); SPECIFIC GRAVITY URINE AUTO 1.008 (1.002-1.035); SQUAMOUS EPITHELIAL CELL UR AU 0 /HPF (0-6); UROBILINOGEN, URINE AUTO 0.2 mg/dL (0.0-2.0); WBC, URINE AUTO TNTC /HPF (0-3)
== END ==
PROVIDERS: ATTEND Family Medicine
DX: N39.0 Urinary tract infection, site not specified (principal)

== ENCOUNTER → 2019-07-05 | Outpatient (REF) | payer MEDICARE, BC, OTHER ==
[2019-07-05 14:11] LABS: APPEARANCE, URINE TURBID (CLEAR); BACTERIA, URINE AUTO 3+ (NEGATIVE); BILIRUBIN, URINE AUTO NEGATIVE (NEGATIVE); BLOOD, URINE BLOOD 1+ (NEGATIVE); COLOR, URINE YELLOW (YELLOW); GLUCOSE, URINE (UA) AUTO NEGATIVE (NEGATIVE); KETONE, URINE AUTO NEGATIVE (NEGATIVE); LEUKOCYTE ESTERASE, URINE AUTO 3+ (NEGATIVE); NITRITE, URINE AUTO POSITIVE (NEGATIVE); PROTEIN, URINE AUTO NEGATIVE (NEGATIVE); RBC, URINE AUTO 72 /HPF (0-3); SPECIFIC GRAVITY URINE AUTO 1.009 (1.002-1.035); SQUAMOUS EPITHELIAL CELL UR AU 3 /HPF (0-6); URIC ACID CRYSTALS SMALL; UROBILINOGEN, URINE AUTO 0.2 mg/dL (0.0-2.0); WBC, URINE AUTO TNTC /HPF (0-3)
== END ==
PROVIDERS: ATTEND Family Medicine
DX: R30.0 Dysuria (principal)

== ENCOUNTER → 2019-08-04 | Outpatient (REF) | payer MEDICARE, BC, OTHER ==
[2019-08-04 11:11] LABS: HEMATOCRIT 35.1 % (36.0-47.0); MEAN CORPUSCULAR HEMOGLOBIN 29.4 pg (27.0-33.0); MEAN CORPUSCULAR HGB CONC 31.3 g/dl (32.0-36.5); MEAN CORPUSCULAR VOLUME 93.9 fl (80.0-96.0); PLATELET COUNT, AUTOMATED 231 10^3/uL (150-450); RED BLOOD COUNT 3.74 10^6/uL (4.00-5.40); WHITE BLOOD COUNT 4.5 10^3/uL (4.0-10.0)
[2019-08-04 11:52] LABS: CALCIUM LEVEL 9.3 MG/DL (8.8-10.2); CREATININE FOR GFR 1.55 MG/DL (0.55-1.30); GLOMERULAR FILTRATION RATE 33.7 (>32); POTASSIUM SERUM 4.2 MEQ/L (3.5-5.1); THYROID STIMULATING HORMONE 5.66 uIU/ML (0.358-3.740)
== END ==
PROVIDERS: ATTEND Internal Medicine
DX: I50.9 Heart failure, unspecified (principal)

== ENCOUNTER → 2019-09-01 | Outpatient (REF) | payer MEDICARE, BC, OTHER ==
[~2019-09-01] MED LIST changes: -DONE1TAB62 PO; +DONE1TAB64 PO
== END ==
PROVIDERS: ATTEND Family Medicine
DX: E03.9 Hypothyroidism, unspecified (principal)

== ENCOUNTER → 2019-09-10 | Outpatient (CLI) | payer MEDICARE ==
--- NOTE | 2019-09-10 11:27 | REP ---
RIGHT LOWER EXTREMITY DUPLEX DOPPLER ARTERIAL ULTRASOUND: Real-time ultrasound evaluation and duplex Doppler interrogation of the right lower extremity arterial system is performed. There is moderate diffuse plaquing seen. There are triphasic and biphasic waveforms seen through the popliteal artery with monophasic waveforms more distally. Elevated peak systolic velocity in the distal right anterior tibial artery could indicate stenosis in that region. Otherwise no focal stenosis is seen. Peak systolic velocity RIGHT Common femoral artery 115.1 cm/s Profunda 173.0 Proximal SFA 122.0 Mid SFA 73.8 Distal SFA 86.5 Popliteal 91.0 Proximal ETA 89.2 Tibioperoneal trunk 85.0 Proximal HEALTH SAFETY SPECIALIST 64.0 Distal HEALTH SAFETY SPECIALIST 71.1 Distal MADHU 220.0 Electronically Signed by Seferino Bowman MD 09/10/2019 02:06 P
== END ==
LOC: M RAD 09:15
PROVIDERS: ATTEND Physician Assistant
DX: I87.311 Chronic venous hypertension (idiopathic) with ulcer of right lower extremity (principal); L97.812 Non-pressure chronic ulcer of other part of right lower leg with fat layer exposed

== ENCOUNTER → 2019-10-07 | Outpatient (REF) | payer MEDICARE ==
[~2019-10-07] MED LIST changes: +ACET-897 PO; +ACET1TAB55 PO; +BISA10SU27 PR; +CALCCAP4 PO; +DOXY-350 PO; +ELIQ2.5T PO; +ENEMENE PR; +EQ S0.65; +FLUTISP; +LEVA1TAB2 PO; +LEVO25TA34 PO; +LEVO50TA45 PO; +MELA1TAB9 PO; +MILKSUS3 PO; +MULTCAP PO; +NAME5TAB13 PO; +PERC5TAB12 PO; +POLYOPD OU; +XARE10TA PO
[2019-10-07 17:25] LABS: BASO % 0.3 % (0.0-1.0); EOS # 0.1 10^3/uL (0.0-0.5); EOS % 0.9 % (0.0-3.0); HEMATOCRIT 36.5 % (36.0-47.0); HEMOGLOBIN 11.6 g/dl (12.0-15.5); LYMPH # 1.2 10^3/uL (1.5-5.0); LYMPH % 12.8 % (24.0-44.0); MEAN CORPUSCULAR HEMOGLOBIN 29.7 pg (27.0-33.0); MEAN CORPUSCULAR HGB CONC 31.8 g/dl (32.0-36.5); MEAN CORPUSCULAR VOLUME 93.4 fl (80.0-96.0); MONO % 10.5 % (0.0-5.0); NEUTROPHILS # 7.3 10^3/uL (1.5-8.5); NEUTROPHILS % 74.9 % (36.0-66.0); PLATELET COUNT, AUTOMATED 427 10^3/uL (150-450); RED BLOOD COUNT 3.91 10^6/uL (4.00-5.40); WHITE BLOOD COUNT 9.7 10^3/uL (4.0-10.0)
[2019-10-07 17:53] LABS: ERYTHROCYTE SEDIMENTATION RATE 100 mm/hr (0-30)
== END ==
PROVIDERS: ATTEND Family Medicine
DX: L03.90 Cellulitis, unspecified (principal)

== ENCOUNTER → 2019-10-08 | Outpatient (CLI) | payer MEDICARE ==
[~2019-10-08] MED LIST changes: -ACET-897 PO; -ACET1TAB55 PO; -BISA10SU27 PR; -CALCCAP4 PO; -DOXY-350 PO; -ELIQ2.5T PO; -ENEMENE PR; -EQ S0.65; -FLUTISP; +ISOVUE-370 76% 100ML VIAL (Q9967) As Ordered ONE; -LEVA1TAB2 PO; -LEVO25TA34 PO; -LEVO50TA45 PO; -MELA1TAB9 PO; -MILKSUS3 PO; -MULTCAP PO; -NAME5TAB13 PO; -PERC5TAB12 PO; -POLYOPD OU; -XARE10TA PO
[2019-10-08 15:47] LABS: CALCIUM LEVEL 8.5 MG/DL (8.8-10.2); CREATININE FOR GFR 1.5 MG/DL (0.55-1.30); GLOMERULAR FILTRATION RATE 35.1 (>32); POTASSIUM SERUM 3.6 MEQ/L (3.5-5.1)
--- NOTE | 2019-10-09 07:44 | REP ---
HISTORY: Knee pain. Possible sepsis. COMPARISON: There are no priors for comparison. FINDINGS: There is significant spray artifact arising from the total knee prosthesis. This obliterates all of the images of the knee joint. There is a fluid collection superior to the knee joint anteriorly and there is fatty infiltration surrounding the fluid collection. This measures approximately 3.5 cm anterior to posterior by 6.7 cm in width by 4.5 cm superior to inferior. There is no abnormal air density within this fluid collection which has Hounsfield unit readings which are slightly higher than water density. In the superior margin of this abnormal fluid collection there are some calcific densities. There are no abnormal air fluid levels or air densities and there are no abnormal fluid-fluid levels. Due to the marked spray artifact I cannot accurately assess for the possibility of prosthetic loosening. There is no gross fracture. IMPRESSION: Abnormal fluid collection as described above. I cannot rule out sepsis. Electronically Signed by Steven Dumont DO 10/11/2019 07:47 A
== END ==
LOC: M RAD 14:35
PROVIDERS: ATTEND Nurse Practitioner Adult Health
DX: M25.561 Pain in right knee (principal); Z96.651 Presence of right artificial knee joint; M25.461 Effusion, right knee
CPT/HCPCS: 36415; 73701; 80048; Q9967

== ENCOUNTER → 2019-10-11 | Outpatient (REF) | payer MEDICARE ==
[~2019-10-11] MED LIST changes: +ACET-897 PO; +ACET1TAB55 PO; +BISA10SU27 PR; +CALCCAP4 PO; +DOXY-350 PO; +ENEMENE PR; +EQ S0.65; +FLUTISP; -ISOVUE-370 76% 100ML VIAL (Q9967) As Ordered ONE; +LEVO25TA34 PO; +LEVO50TA45 PO; +MELA1TAB9 PO; +MILKSUS3 PO; +MULTCAP PO; +NAME5TAB13 PO; +POLYOPD OU
[2019-10-11 15:10] LABS: BASO % 0.5 % (0.0-1.0); EOS # 0.1 10^3/uL (0.0-0.5); HEMATOCRIT 34.5 % (36.0-47.0); HEMOGLOBIN 11.1 g/dl (12.0-15.5); LYMPH # 1.5 10^3/uL (1.5-5.0); LYMPH % 16.9 % (24.0-44.0); MEAN CORPUSCULAR HEMOGLOBIN 29.2 pg (27.0-33.0); MEAN CORPUSCULAR HGB CONC 32.2 g/dl (32.0-36.5); MEAN CORPUSCULAR VOLUME 90.8 fl (80.0-96.0); NEUTROPHILS # 5.8 10^3/uL (1.5-8.5); NEUTROPHILS % 67.2 % (36.0-66.0); PLATELET COUNT, AUTOMATED 497 10^3/uL (150-450); WHITE BLOOD COUNT 8.6 10^3/uL (4.0-10.0)
[2019-10-11 15:49] LABS: ERYTHROCYTE SEDIMENTATION RATE > 140 mm/hr (0-30)
== END ==
PROVIDERS: ATTEND Family Medicine
DX: E11.9 Type 2 diabetes mellitus without complications (principal); M17.11 Unilateral primary osteoarthritis, right knee; M25.461 Effusion, right knee

== ENCOUNTER → 2019-10-11 | Outpatient (REF) | payer MEDICARE ==
[2019-10-11 15:41] LABS: SOURCE, BODY FLUID GLUCOSE RT KNEE; SOURCE, BODY FLUID URIC ACID RT KNEE; URIC ACID, BODY FLUID 5.7 MG/DL (NOT ESTABLISHED)
[2019-10-11 15:44] LABS: SOURCE, BODY FLUID RT KNEE
[2019-10-11 15:45] LABS: SYNOVIAL FLUID COLOR AMBER (YELLOW)
[2019-10-11 15:53] LABS: CRYSTALS, BODY FLUID NONE SEEN (NONE SEEN); SOURCE, BODY FLUID CRYSTALS RT KNEE
[2019-10-12 06:27] LABS: BODY FLUID RHEUMATOID SCREEN NEGATIVE (NEGATIVE); MUCIN CLOT TEST 4+ (4+)
== END ==
LOC: M LAB REF 14:56
PROVIDERS: ATTEND Orthopaedic Surgery
DX: M25.461 Effusion, right knee (principal)

== ENCOUNTER 2019-10-12 09:03 | Inpatient (IN) | payer MEDICARE ==
[~2019-10-12] VITALS: Ht 144.8 cm; Wt 97.8 kg
[2019-10-12] MEDS: HEPARIN SOD (PORCINE) 5000UNITS/ML VIAL (J1644 PER 1000UNITS) SC SCH ×2 (09:00→20:57)
[~2019-10-12 09:03] MED LIST changes: -ACET-897 PO; -ACET1TAB55 PO; -BISA10SU27 PR; -CALCCAP4 PO; -DOXY-350 PO; -ENEMENE PR; -EQ S0.65; -FLUTISP; -LEVO25TA34 PO; -LEVO50TA45 PO; -MELA1TAB9 PO; -MILKSUS3 PO; -MULTCAP PO; -NAME5TAB13 PO; -POLYOPD OU
[2019-10-12] MEDS ORDERED: VANCOMYCIN HCL 1,000 MG, VIAL MATE ADAPTER 1 EACH in D5W 250 ML IV SCH (10:00)
[2019-10-12 11:11] VITALS: BP 131/67
[2019-10-12 11:16] LABS: HEMATOCRIT 32.9 % (36.0-47.0); HEMOGLOBIN 10.4 g/dl (12.0-15.5); MEAN CORPUSCULAR HEMOGLOBIN 28.4 pg (27.0-33.0); MEAN CORPUSCULAR HGB CONC 31.6 g/dl (32.0-36.5); MEAN CORPUSCULAR VOLUME 89.9 fl (80.0-96.0); PLATELET COUNT, AUTOMATED 497 10^3/uL (150-450); RED BLOOD COUNT 3.66 10^6/uL (4.00-5.40); WHITE BLOOD COUNT 9.2 10^3/uL (4.0-10.0)
[2019-10-12] MEDS ORDERED: FLUTISP (11:22)
[2019-10-12] MEDS ORDERED: TORS20TA2 PO (11:22)
[2019-10-12] MEDS ORDERED: LEVO25TA34 PO (11:22)
[2019-10-12] MEDS ORDERED: LEVO50TA45 PO (11:22)
[2019-10-12] MEDS ORDERED: DOXY-350 PO (11:22)
[2019-10-12] MEDS ORDERED: ACET-897 PO ×2 (11:22)
[2019-10-12] MEDS ORDERED: POLYOPD OU (11:22)
[2019-10-12] MEDS ORDERED: EQ S0.65 (11:22)
[2019-10-12] MEDS ORDERED: MILKSUS3 PO (11:22)
[2019-10-12] MEDS ORDERED: NAME5TAB13 PO (11:22)
[2019-10-12] MEDS ORDERED: DONE5TAB82 PO (11:29)
[2019-10-12] MEDS ORDERED: ENEMENE PR (11:29)
[2019-10-12] MEDS ORDERED: ACET1TAB55 PO (11:29)
[2019-10-12] MEDS ORDERED: CALCCAP4 PO (11:29)
[2019-10-12] MEDS ORDERED: BISA10SU27 PR (11:29)
[2019-10-12] MEDS ORDERED: SPIR-10 PO (11:29)
[2019-10-12] MEDS ORDERED: MULTCAP PO (11:29)
[2019-10-12] MEDS ORDERED: MELA1TAB9 PO (11:29)
--- NOTE | 2019-10-12 11:37 | CR ---
DATE OF CONSULTATION: 10/12/2019 This is a patient I saw in the office yesterday with some redness in her knee. No fevers but I did aspirate the knee and it appeared to be serosanguineous type fluid. However, when it was sent to the lab, the microbiology report indicated no bacteria and few WBCs. However, the joint fluid analysis showed over 31,000 white cells in her right total knee. This knee is approximately 22 years old. Given the presence of an artificial knee and a white count of over 30,000 and the fact that she has had some chronic ulcerations of her right lower leg, I feel it is very likely that we are dealing with a septic joint. After discussing with my partner, who has also been involved with her care, Dr. Tirado, we have decided that best course of action is surgical. I did contact the daughter, Heather Zamudio this morning and I discussed this in detail with her. So I think the plan would be to proceed with hospitalist admission and probably multiple consultations will be required in the hospital and proceed with tentative surgical treatment of incision and drainage of her right knee, possible polyethylene change with antibiotic beads and possible resection of the knee arthroplasty and placement of PROSTALAC. This is a antibiotic cement spacer. The patient has been stable. There is been no sign that she is septic. I have discussed this in detail with Dr. Peres and also Mickey Luke, our PA, who will also be evaluating her this afternoon when she gets to the hospital. I have also notified Breonna Muñoz of the admission. I believe that several of the following things the to be considered and would give these recommendations to the hospital with Dr. Peres. 1. Colon vascular consult: The patient was apparently supposed to see, I believe, an interventional radiologist sometime in the next couple weeks about possible vascular procedure for her right lower extremity to try to improve the wound healing in her leg. 2. I think there should be consideration given for a cardiology consult. Dr. Garcia sees her for what sounds like cardiomyopathy. 3. She will need an updated right knee x-ray. 4. I would involve the wound care service for evaluation and treatment of her right lower leg chronic wounds. 5. I think starting her on empiric antibiotic therapy IV is appropriate as I did obtain fluid in the office yesterday and cultures are pending. That fluid was obtained while she was on oral antibiotics and I think it is safer to keep her on antibiotics while we are getting her medically evaluated. 6. Subcutaneous heparin, I think is the most appropriate anticoagulation and again I have discussed this with Dr. Peres 7. I would anticipate the operating room (OR) on Friday if we can range for all of these consultations and she is cleared from a medical standpoint. In addition, we do need to order in some special equipment as this knee is several generations old and was put in, in 1997. So we have to order in special polyethylene inserts. Again, I have discussed this with the daughter in detail and the patient does have some dementia but apparently consign her own consent, according to the daughter. Dr. Tirado and I will plan on proceeding Friday if everything is okay from the workup standpoint with an incision and drainage of the right knee likely, at the very least, a polyethylene exchange and antibiotic bead placement, but if there is any concern about the integrity of the prosthesis, it may be reasonable to remove the prosthesis and placed an antibiotic spacer with antibiotic beads. I believe we should probably not use a tourniquet given her vascular history, and we should get her type and screened for 2 units preoperatively. ADDENDUM: I did discuss with the daughter the very serious nature of this situation. This is a patient who has several medical issues, including morbid obesity, vascular issues, cardiac issues, and now an infected knee; and I explained that this is a very serious situation for the patient and that we almost always proceed with surgical treatment of infected knees to try to reduce the chances of the patient becoming septic. It is really the only chance of curing the infection is to treat it surgically. I have explained that this is a very risky situation for this patient that certainly could result in or other very serious complications. There is even a risk of amputation in this situation, given her vascular supply. We will further discuss the consent as the surgery date approaches. Addendum 10/12/2019 aml
[2019-10-12 11:38] LABS: BILIRUBIN,TOTAL 0.9 MG/DL (0.2-1.0); CALCIUM LEVEL 9.6 MG/DL (8.8-10.2); CREATININE FOR GFR 1.51 MG/DL (0.55-1.30); GLOMERULAR FILTRATION RATE 34.8 (>32); POTASSIUM SERUM 3.9 MEQ/L (3.5-5.1); TOTAL PROTEIN 7.6 GM/DL (6.4-8.2)
[2019-10-12] MEDS ORDERED: MOM 30ML SUSPENSION UDC PO PRN ×2 (11:45→15:45)
[2019-10-12] MEDS ORDERED: MAALOX 30 ML SUSP *UDC PO PRN (11:45)
[2019-10-12] MEDS ORDERED: VANCOMYCIN HCL 750 MG, VIAL MATE ADAPTER 1 EACH in D5W 250 ML IV SCH (12:00)
[2019-10-12] MEDS: cefTRIAXone SOD 1 GM in D5W MINI-BAG PLUS 50 ML IV SCH (13:22)
--- NOTE | 2019-10-12 13:46 | REP ---
REASON FOR EXAM: Knee pain. Comparison examination is 10/29/2017. There is no change in appearance of a nonconstrained total knee prosthesis. There is, however, some evidence of slight periprosthetic lucency seen involving the distal aspect of the tibial component of the prosthesis. The examination is somewhat limited by portable technique. This finding is seen best on the AP view. There is no evidence of an acute fracture. IMPRESSION: As described above, I cannot rule out the possibility of tibial prosthetic loosening. Consider triple-phase bone scan. Electronically Signed by Steven Dumont DO 10/12/2019 04:49 P
--- NOTE | 2019-10-12 13:50 | REP ---
REASON: Preoperative evaluation. COMPARISON: 10/29/2017 The technique utilized in obtaining the radiograph has magnified the cardiac silhouette and accentuated the interstitial markings. There is cardiomegaly accentuated by technique, status quo. There are chronic lung field changes, status quo. Multiple calcified granulomas are noted. There is evidence of interstitial fibrosis. There are no acute patchy parenchymal opacities or pleural effusions. There is no significant change in appearance of the osseous structures. IMPRESSION: Stable-appearing chronic changes as described above without evidence of acute cardiopulmonary disease. Electronically Signed by Steven Dumont DO 10/12/2019 04:49 P
[2019-10-12] MEDS ORDERED: VANCOMYCIN HCL 1,000 MG, VIAL MATE ADAPTER 1 EACH in D5W 250 ML IV ONE (14:00)
[2019-10-12 15:00] VITALS: BP 138/62
[2019-10-12] MEDS ORDERED: BISACODYL 10 MG SUPP PR PRN (15:15)
[2019-10-12] MEDS ORDERED: ACETAMINOPHEN 325 MG TAB PO PRN (15:45)
[2019-10-12] MEDS ORDERED: POLYVINYL ALCOHOL OPHTH SOLN 15 ML(LIQUITEARS) OU PRN (15:45)
[2019-10-12] MEDS ORDERED: SODIUM CHLORIDE NASAL 0.65% SPRAY BTL (OCEAN) PRN (15:45)
--- NOTE | 2019-10-12 15:45 | HPEPDOC ---
General Date of Admission Oct 12, 2019 at 10:46 Date of Service: Oct 12, 2019 Chief Complaint The patient is a 84-year-old female admitted with a reason for visit of Infected Prosthetic Knee; Right Knee Effusion. Source: Patient, alf records Exam Limitations: Dementia Timing/Duration: Day(s) (4-5) Severity: Mild Associated Symptoms: Weakness History of Present Illness 84-year-old female with past medical history of obesity, moderate dementia, hypothyroidism, hypertension, chronic back pain, CKDII presents as a direct transfer for orthopedic procedure for likely septic arthritis. As per review of medical records, patient was noted to have increased warmth and swelling in her right knee the past several days. Approximately 20 mL of fluid was aspirated and sent to the lab which came back positive for likely infected joint. Cultures are still pending. Given her situation, orthopedic consult was called and surgeon will likely take to the OR by the end of the week for likely washout. Patient cannot recall much due to her underlying dementia. She states that she has had her knee drained multiple times over she cannot remember when last time it happened. She also does not report any worsening pain along her legs. She states that she is not ambulatory and stays in bed all day. She usually ambulates via wheelchair when the facility provides people to help her get into a wheelchair. She currently denies any recent fevers, chills, shortness of breath with chest pain, abdominal pain, nausea, vomiting. Of note, patient states that she has had chronic right lower extremity nonhealing ulcer that hasn't bothering her for the past year. She says that they have been cutting her there and that it is not healing. She cannot provide any further information more than that. Home Medications Scheduled Acetaminophen (Tylenol Extra Strength) 500 Mg Tablet, 500 MG PO BID, (Reported) AT 0800, 1400 Acetaminophen (Tylenol Extra Strength) 500 Mg Tablet, 1,000 MG PO QHS, (Reported) Calcium Carbonate/Vitamin D3 (Calcium 600 + Vit D 400 Softgl) 1 Each Capsule, 1 CAP PO DAILY, (Reported) Donepezil HCl (Donepezil HCl) 5 Mg Tablet, 5 MG PO DAILY, (Reported) Doxycycline Monohydrate (Doxycycline) 100 Mg Capsule, 100 MG PO BID, (Reported) STARTED 10/07/19 FOR 10 DAYS Fluticasone Propionate (Fluticasone Propionate) 16 Gm Dobbins.susp, 1 SPRAY NA QHS, (Reported) Levothyroxine Sodium (Levoxyl) 25 Mcg Tablet, 25 MCG PO 4XWK, (Reported) FRI, , , FRI Levothyroxine Sodium (Levoxyl) 50 Mcg Tablet, 50 MCG PO 3XW, (Reported) MON, WED, FRI Melatonin (Melatonin) 5 Mg Tablet, 5 MG PO QHS, (Reported) Memantine HCl (Namenda) 5 Mg Tablet, 5 MG PO BID, (Reported) Multivitamin (Multivitamins) 1 Each Capsule, 1 CAP PO DAILY, (Reported) Spironolactone (Spironolactone) 25 Mg Tablet, 25 MG PO DAILY, (Reported) Torsemide (Torsemide) 20 Mg Tablet, 40 MG PO BID, (Reported) Scheduled PRN Acetaminophen (Acetaminophen) 325 Mg Tablet, 650 MG PO Q4H PRN for PAIN OR FEVER, (Reported) Bisacodyl (Bisacodyl) 10 Mg Supp.rect, 10 MG MD DAILY PRN for CONSTIPATION, (Reported) Magnesium Hydroxide (Milk of Magnesia) 400 Mg/5 Ml Oral.susp, 30 ML PO DAILY PRN for CONSTIPATION, (Reported) Polyvinyl Alcohol (Artificial Tears) 15 Ml Drops, 2 DROP OU Q2H PRN for DRY EYES, (Reported) Sodium Chloride (Nasal Dobbins) 44 Ml Dobbins, 2 SPRAYS NA Q2H PRN for NASAL DRYNESS, (Reported) Sodium Phosphate,Routt-Dibasic (Enema) 133 Ml Enema, 1 FEMI MD DAILY PRN for C ONSTIPATION, (Reported) Allergies Coded Allergies: No Known Drug Allergies (Verified Allergy, Unknown, 10/12/19) Past Medical History Medical History Sleep apnea, on CPAP Hypertension Obesity Moderate dementia Hypothyroidism Surgical History Multiple orthopedic knee procedures with last knee being done 20 years ago Family History CVA and CHF in mother Cirrhosis in father CHF and brother and sister who both Social History * Smoker: Denies Alcohol: Denies Drugs: denies Recent Travel/Sick Contacts: Reports: Recent travel; Denies: Recent sick contacts Psychosocial History: Dementia A-FIB/CHADSVASC A-FIB History Current/History of A-Fib/PAF?: No Current PO Anticoag Therapy: No Review of Systems Constitutional: Denies: Chills, Fever, Weakness, Fatigue Eyes: Denies: Pain, Vision change ENT: Denies: Head Aches, Ear Pain Skin: Reports: Lesions, Breakdown; Denies: Rash, Jaundice, Bruising Pulmonary: Denies: Dyspnea, Cough Cardiovascular: Reports: Orthopnea, Edema; Denies: Chest Pain, Palpitations, Lt Headedness Gastrointestinal: Denies: Nausea, Vomiting, Abdominal Pain, Diarrhea Genitourinary: Reports: Incontinence; Denies: Dysuria Musculoskeletal: Reports: Back Pain, Shoulder Pain, Leg Pain Neurological: Denies: Weakness, Numbness Psych: Reports: Mood Normal; Denies: Thoughts of Self Harm, Thoughts of Harming Other Physical Examination General Exam: Positive: Alert, Cooperative, No Acute Distress, Other (obese female, sitting in bed appears to be comfortable) Eye Exam: Positive: PERRLA, Conjunctiva & lids normal, EOMI; Negative: Sclera icteric ENT Exam: Positive: Atraumatic, Mucous membr. moist/pink Neck Exam: Positive: Supple, JVD (unable to assess JVD due to clinical condition and obesity) Chest Exam: Positive: Clear to auscultation, Normal air movement; Negative: Rales, Rhonchi, Wheezing Heart Exam: Positive: Rate Normal, Regular Rhythm, Normal S1, Normal S2 Abdomen Exam: Positive: Normal bowel sounds, Soft; Negative: Tenderness, Hepatospenomegaly Extremity Exam: Positive: Edema, Normal pulses, Swelling (right knee joint appears to be swollen compared to left, erythematous. Large surgical scar noted in bilateral knees consistent with TKR in past); Negative: Clubbing, Tenderness Skin Exam: Positive: Nl turgor and temperature, Breakdown (right lower extremit y ulceration noted approximately 4 cm x 6 cm. Granulation tissue seen. No gross evidence of infection or purulent drainage seen) Neuro Exam: Positive: Normal Tone, Sensation Intact, Cranial Nerves 3-12 NL, Other (unable to assess gait due to clinical condition) Psych Exam: Positive: Mental status NL, Mood NL; Negative: Oriented x 3 (oriented [address]) Vital Signs Vital Signs Date Time Temp Pulse Resp B/P (MAP) Pulse Ox O2 Delivery O2 Flow Rate FiO2 10/12/19 11:11 99.1 98 18 131/67 (88) 98 Room Air Laboratory Data Labs 24H Laboratory Tests 2 10/12/19 11:04: Methicillin-Resist S.aureus DNA PCR NOT DETECTED 10/12/19 11:07: Nucleated Red Blood Cells % (auto) 0.0, Anion Gap 5L, Glomerular Filtration Rate 34.8, Calcium Level 9.6, Total Bilirubin 0.9, Aspartate Amino Transf (AST/SGOT) 81H, Alanine Aminotransferase (ALT/SGPT) 95H, Alkaline Phosphatase 271H, Total Protein 7.6, Albumin 2.0L, Albumin/Globulin Ratio 0.36L CBC/BMP Laboratory Tests 10/12/19 11:07 RAD Interpretation STUDY: CXR (stable appearing chronic changes without evidence of acute cardiopulmonary disease) Rad Actions: Report Reviewed, Films Reviewed (stable appearing chronic changes) STUDY: knee x-ray Rad Actions: Report Reviewed, Films Reviewed (no change in appearance of knee prosthetic. Possible slight lucency seen consistent with tibial prosthetic loosening?) Assessment/Plan 84-year-old female with multiple medical problems is sent in for likely septic arthritis. Patient has known prostatic and will therefore require a lot of washout by orthopedic surgery. Patient will likely need to undergo evaluation prior to that procedure with cardiology, vascular surgery and will need to be medically optimized prior to procedure. We'll start on broad-spectrum antibiotics for now and follow up with cultures that were drawn as outpatient. Plan / VTE VTE Prophylaxis Ordered?: Yes Plan Plan 1. Septic arthritis- Patient had 20 mL of fluid which were drawn from her right knee. Fluid was consistent with likely infectious process. We'll start on broad-spectrum antibiotics and follow-up cultures when available. No evidence of systemic infection at this time as patient remains afebrile with no elevated white count. - Continue with vancomycin and ceftriaxone - Follow-up orthopedic surgery recommendations -Will need to obtain cardiology consult for clearance given history of complicated cardiovascular issues - We will call vascular surgery in a.m. for further evaluation - CBC, CRP, ESR daily - Follow up x-ray right knee, chest x-ray, EKG 2. Dementia- Established issue. Néstor Chin has known dementia for many years. - Continue with Aricept and Namenda as per home dose 3. Obstructive sleep apnea- - Continue with CPAP at bedtime 4. Hypothyroidism - Follow-up TSH - Continue with Synthroid dosing as per home dose 5. Chronic back pain Established issue. On tylenol PRN at home. - c/w tylenol PRN for pain control 6. Congestive heart failure with preserved Ejection fraction, not in acute exacerbation Echo in October 2017 reveals diastolic dysfunction with no evidence of reduced EF. Medication review reveals patient is on diuretics likely for symptomatic management. Chest x-ray shows no worsening congestion from prior. - Continue with home dose of Aldactone and torsemide - Follow cardiology consult for medical clearance for surgical procedure - Follow up EKG DVT prophylaxis with heparin Bed rest for now Disposition [facility] versus SNF Diet: Continue Current Activity: Bedrest Medications: Start Antibiotics Diagnostics: Check Labs, EKG Anticipated Discharge: Assisted Living Advanced Directives: [facility] Form is available (as per documentation from retirement, patient has multiple forms signed. She does not want resuscitation, limited medical interventions, no intubation, no feeding tubes) SKYLER FRAZIER MD Oct 12, 2019 15:45
--- NOTE | 2019-10-12 15:51 | CR ---
DATE: 10/12/2019 CHIEF COMPLAINT: Right knee pain and swelling. HISTORY: This is a pleasant 84-year-old female patient who presented to our office on 10/11/2019 with pain in her right knee, inability to bear weight, and swelling and redness around her right knee. She was seen by Dr. Roman, where the knee was aspirated. It was noted to have a white blood cell (WBC) count of 31,660. Cultures so far have not grown out a bacteria. Those are still pending. She was then sent to be directly admitted to the hospital for incision and drainage (I and D) of her right knee with most likely a poly exchange but possible complete removal of the prosthesis and replace it with Prostalac prosthesis. Due to the age of the prosthesis, the surgery is planned for Friday as special order the poly from [employer]. Dr. Roman as been in contact with the patient's daughter in terms of the current treatment plan, as the patient is slightly demented. The patient does admit though she has noted increased pain in that knee, inability to bear full weight on that knee, and pain with weightbearing. She has been mainly being moved by a Arabella lift. She notes persistent pain in the knee. She has noted swelling in that knee over the last couple weeks or so. She denies any particular injury in that knee. Denies any recent falls. She has had a CT scan of that knee done on 10/08/2019, notable for an abnormal fluid collection in the suprapatellar pouch. She had x-rays done of the knee today done and at [facility], notable for most likely loosening of the tibial prosthesis. There is obvious polyethylene wear noted on the x-rays today. There is some notable osteopenia but no acute fracture noted. The patient does know she is in the hospital. She does note that she was prior at [facility] [facility]. She denies currently any chest pain. Denies any change in her current breathing. Notes mainly symptoms related to her right knee. Her medical history includes hypertension, heart disease, lung disease. She also has sleep apnea, obesity, congestive heart failure. Chronic kidney disease stage III, history of cellulitis in the right lower extremity, venous stasis ulcer right lower extremity. SURGICAL HISTORY: Includes, tonsillectomy, partial hysterectomy, carpal tunnel release, trigger thumb release, hammertoe, bunionectomy, pilonidal cyst removal, hernia repair, and bilateral total knee arthroplasty. She has had a mesh sling inserted. She has also had a colon resection. FAMILY HISTORY: Of heart disease, hypertension, and thyroid disease in her mother. She also has a brother with heart disease, thyroid disease, arthritis, and hypertension, a sister with heart disease, hypertension, arthritis, and thyroid disease. SOCIAL HISTORY: She is a former smoker. She does not use alcohol. REVIEW OF SYSTEMS: She currently denies any fevers. Denies chills. Denies chest pain. At times, though she has noted shortness breath, though currently she feels that she is at her baseline. She does not feel her respiratory symptoms have changed. Denies abdominal pain. Has longstanding incontinence that is unchanged. She notes pain and stiffness primary in the right knee, inability to bear weight on the right knee, and difficulty with walking on the right knee. Denies any new injuries to that knee. Denies any current falls. CURRENT MEDICATIONS: She is on vancomycin 1 gram intravenous (IV) every 24 hours. She is on Colace, also on ceftriaxone 1 gram every 24 hours. She also takes Tylenol as needed for pain, artificial tears, calcium with vitamin D, donepezil 5 mg one tablet once per day, fluconazole nasal spray, levothyroxine 25 mcg, melatonin 5 mg at bedtime, Namenda 5 mg twice a day, spironolactone 25 mg one tablet daily, torsemide 20 mg one tablet once per day. PHYSICAL EXAM: Reveals an alert female patient that seems to understand place and time. She understands she is at [facility] in the hospital. She is lying comfortably in the hospital stretcher. There is unlabored breathing, symmetrical rise and fall of chest. Her mood and affect are appropriate for the situation. Neck is supple without adenopathy or jugular venous distention (JVD). There is good range of motion of the upper extremities. No irritability with hip range of motion on either side. Exam of the left knee reveals a well-healed surgical wound without signs of infection. There is no irritability on knee range of motion on the left side. There are a well dressed wounds on both tibias. I did not remove those dressings. There is chronic venous congestion. No pain with passive range of motion of the great toe. Dorsalis pedis and posterior tib pulses are palpable bilaterally. Exam of the right knee does reveal erythema, mainly in the suprapatellar pouch. There is increased warmth to touch around the knee. There is an obvious effusion. There is decreased range of motion all planes. She can flex about 20 degrees. She lacks about 10 degrees of complete extension. There is some pain with varus and valgus stress of the knee. The calves are grossly soft, nontender to palpation. Current Vital signs: Temperature 99.1, pulse 98, respirations 18, blood pressure 131/67, pulse oximetry 98, and she is on room air. WBC count 9.2, RBC count of 3.6, hemoglobin 10.4, hematocrit 32.9. Sodium 136, potassium 3.9, BUN 0.44, creatinine 1.51, glucose 104. Methicillin-resistant Staphylococcus aureus (MRSA) not detected. IMPRESSION: Infected right total knee arthroplasty. PLAN: Is to take her to the operating room on Friday10/15/2019 for incision and drainage of the right knee, possible polyethylene exchange and placement of antibiotic beads. Also, possible resection knee arthroplasty and placement of Prostalac spacer. This will be completed by Dr. Roman and Dr. Tirado. In the interim, we would like to have a vascular consult. Also, would like to have a cardiac consult. Her mixer and scaler is Dr. Garcia. We also recommend that she be seen by the wound service to evaluate her bilateral lower extremity wounds. She will continue the current antibiotics as prescribed by the hospitalist, and also would recommend subcu heparin for deep venous thrombosis (DVT) prophylaxis. We would, hopefully, have her medically optimization for surgery on Friday. The reason the plan is for Friday, is we need to special order the polyethylene in. The representatives from [employer] are working on getting the polyethylene for Friday. Her family has been consulted by Dr. Roman, and he has discussed with Heather Zamudio, the daughter of the patient. I did explain the plan to the patient. She does seem to grasp the plan. I was able to get her in contact with her daughter, and they had a long discussion. After their long discussion, the patient is agreeable to the current plan as proposed by Dr. Roman. So at this point, we will continue with the plan with medical optimization with a goal of getting to the operating room on Friday to go forth with the incision and drainage of the right knee with possible poly exchange, possible resection arthroplasty and placement of an antibiotic spacer in the form of Prostalac. Thank you for the pleasant consult. Please feel free to contact our office if further information is required. NAIF
[2019-10-12] MEDS: TORSEMIDE 20 MG TAB PO SCH (17:55)
[2019-10-12] MEDS: MEMANTINE 5MG TABLET (NAMENDA) PO SCH (20:57)
[2019-10-12] MEDS: DOCUSATE SODIUM 100 MG CAP PO SCH (20:57)
[2019-10-12 20:58] VITALS: BP 155/67
[2019-10-12] MEDS: FLUTICASONE PROP 0.05% NASAL SPRAY 16 GM (FLONASE) SCH (21:00)
[2019-10-12] MEDS: ACETAMINOPHEN TAB 650MG DOSE (2X325MG) PO PRN (21:03)
--- NOTE | 2019-10-13 01:04 | ECGEPIP ---
[facility] Test Date: 2019-10-12 Pat Name: TYRELL JACINTO Department: Room: [place] [address] Gender: Female State Tested Nursing Assistant: : [id number] Requested By: SKYLER Frye Order Number: [id number] Reading MD: Lawrence Moreland Measurements Intervals Milo Rate: 99 P: 84 NC: 171 QRS: -7 QRSD: 145 T: 10 QT: 374 QTc: 480 Interpretive Statements SINUS RHYTHM WITH OCCASIONAL SUPRAVENTRICULAR PREMATURE COMPLEXES RIGHT BUNDLE BRANCH BLOCK MODERATE VOLTAGE CRITERIA FOR LVH, CONSIDER NORMAL VARIANT Electronically Signed on 10-13-2019 1:03:58 EDT by Lawrence Moreland
[2019-10-13 06:01] VITALS: BP 128/55
[2019-10-13] MEDS: ACETAMINOPHEN TAB 650MG DOSE (2X325MG) PO PRN (06:01)
[2019-10-13] MEDS: LEVOTHYROXINE 50MCG TABLET (0.05MG) PO SCH (06:01)
[2019-10-13] MEDS: HEPARIN SOD (PORCINE) 5000UNITS/ML VIAL (J1644 PER 1000UNITS) SC SCH ×3 (07:28→20:17)
[2019-10-13 07:49] LABS: HEMATOCRIT 31.3 % (36.0-47.0); HEMOGLOBIN 10.1 g/dl (12.0-15.5); MEAN CORPUSCULAR HEMOGLOBIN 28.9 pg (27.0-33.0); MEAN CORPUSCULAR HGB CONC 32.3 g/dl (32.0-36.5); MEAN CORPUSCULAR VOLUME 89.7 fl (80.0-96.0); PLATELET COUNT, AUTOMATED 487 10^3/uL (150-450); RED BLOOD COUNT 3.49 10^6/uL (4.00-5.40); WHITE BLOOD COUNT 9.2 10^3/uL (4.0-10.0)
[2019-10-13 08:28] LABS: BILIRUBIN,TOTAL 0.8 MG/DL (0.2-1.0); C REACTIVE PROTEIN QUANTITATIV 21.1 MG/DL (0.00-0.30); CALCIUM LEVEL 8.3 MG/DL (8.8-10.2); CREATININE FOR GFR 1.5 MG/DL (0.55-1.30); GLOMERULAR FILTRATION RATE 35.1 (>32); TOTAL PROTEIN 6.6 GM/DL (6.4-8.2)
[2019-10-13] MEDS: MOM 30ML SUSPENSION UDC PO SCH (09:00)
[2019-10-13] MEDS: MIRALAX *UNIT DOSE* 17GM PACKET PO SCH (09:00)
[2019-10-13] MEDS: DOCUSATE SODIUM 100 MG CAP PO SCH ×2 (09:00→20:17)
[2019-10-13] MEDS: MULTIVITAMINS/MINERALS THERAP 1 TAB PO SCH (09:06)
[2019-10-13] MEDS: MEMANTINE 5MG TABLET (NAMENDA) PO SCH ×2 (09:06→20:17)
[2019-10-13] MEDS: TORSEMIDE 20 MG TAB PO SCH ×2 (09:06→17:42)
[2019-10-13] MEDS: DONEPEZIL 5 MG TAB PO SCH (09:06)
[2019-10-13] MEDS: SPIRONOLACTONE 25 MG TAB PO SCH (09:06)
[2019-10-13] MEDS: VANCOMYCIN HCL 1,000 MG, VIAL MATE ADAPTER 1 EACH in D5W 250 ML IV SCH (09:07)
[2019-10-13 09:09] LABS: ERYTHROCYTE SEDIMENTATION RATE 128 mm/hr (0-30)
--- NOTE | 2019-10-13 09:27 | IPNPDOC ---
Subjective Date Seen The patient was seen on 10/13/19. Subjective Chief Complaint/HPI Patient seen and examined at bedside this morning. As per patient, no events overnight and she has been feeling quite well. Her only complaint right now is back pain due to the positioning of her bed. She denies any recent fevers, chills, shortness of breath, chest pain, abdominal pain area her knee pain is well controlled on current pain regimen. Patient has no other complaints at this time. Other systems 10 point review of systems is negative except for what is stated above in the subjective Objective Physical Examination General Exam: Positive: Alert, Cooperative, No Acute Distress, Other (obese female, sitting in bed appears to be comfortable) Eye Exam: Positive: PERRLA, Conjunctiva & lids normal, EOMI; Negative: Sclera icteric ENT Exam: Positive: Atraumatic, Mucous membr. moist/pink Neck Exam: Positive: Supple, JVD (unable to assess JVD due to clinical condition and obesity) Chest Exam: Positive: Clear to auscultation, Normal air movement; Negative: Rales, Rhonchi, Wheezing Heart Exam: Positive: Rate Normal, Regular Rhythm, Normal S1, Normal S2 Abdomen Exam: Positive: Normal bowel sounds, Soft; Negative: Tenderness, Hepatospenomegaly Extremity Exam: Positive: Edema, Normal pulses, Swelling (right knee joint appears to be swollen compared to left, erythematous. Large surgical scar noted in bilateral knees consistent with TKR in past); Negative: Clubbing, Tenderness Skin Exam: Positive: Nl turgor and temperature, Breakdown (right lower extremity ulceration noted approximately 4 cm x 6 cm. Granulation tissue seen. No gross evidence of infection or purulent drainage seen) Neuro Exam: Positive: Normal Tone, Sensation Intact, Cranial Nerves 3-12 NL, Other (unable to assess gait due to clinical condition) Psych Exam: Positive: Mental status NL, Mood NL; Negative: Oriented x 3 (oriented [address]) Assessment /Plan Assessment 84-year-old female with multiple medical problems is sent in for likely septic arthritis. Patient has known prosthetic and will therefore require a lot of washout by orthopedic surgery on Friday. Case was discussed with patient's primary damage prevention coordinator this morning and given her lack of active cardiac issues, patient will be cleared for surgery. Vascular surgery consult is still pending at this time. Patient continues to be on broad-spectrum antibiotics. Laboratory work is unremarkable and unchanged. Plan/VTE VTE Prophylaxis Ordered?: Yes Plan Diet: Continue Current Diagnostics: Check Labs Anticipated Discharge: Sub Acute Rehab, Assisted Living 1. Septic arthritis- Patient had 20 mL of fluid which were drawn from her right knee. Fluid was consistent with likely infectious process. Currently on vancomycin and ceftriaxone. No evidence of systemic infection noted given lack of fever or elevated white count. CRP is high which is expected. Patient to undergo or washout and knee replacement on Friday as per conversation with orthopedic surgery. As per discussion with cardiology, no contraindications to surgery at this time. - Continue with vancomycin and ceftriaxone - Follow-up orthopedic surgery recommendations - Given patient does not have any decompensated heart failure or other acute car diovascular issues, patient is medically optimized as low to intermediate cardiovascular risk patient for intermediate risk orthopedic procedure. Patient may proceed to surgery at this time given the risks and benefits due to her current condition. -Vascular surgery consult still pending - CBC, CRP, ESR daily 2. Dementia- Established issue. Néstor Roper has known dementia for many years. - Continue with Aricept and Namenda as per home dose 3. Obstructive sleep apnea- - Continue with CPAP at bedtime 4. Hypothyroidism - Follow-up TSH - Continue with Synthroid dosing as per home dose 5. Chronic back pain Established issue. On tylenol PRN at home. - c/w tylenol PRN for pain control 6. Congestive heart failure with preserved Ejection fraction, not in acute exacerbation Echo in October 2017 reveals diastolic dysfunction with no evidence of reduced EF. Medication review reveals patient is on diuretics likely for symptomatic management. Chest x-ray shows no worsening congestion from prior. - Continue with home dose of Aldactone and torsemide - Follow cardiology consult for medical clearance for surgical procedure - Follow up EKG VS, I&O, 24H, Fishbone Vital Signs/I&O Vital Signs Date Time Temp Pulse Resp B/P (MAP) Pulse Ox O2 Delivery O2 Flow Rate FiO2 10/13/19 06:01 98.4 70 20 128/55 (79) 96 Room Air I&O- Last 24 Hours up to 6 AM 10/13/19 06:00 Intake Total 1320 ml Output Total 1750 ml Balance -430 ml Laboratory Data 24H LABS Laboratory Tests 2 10/12/19 11:04: Methicillin-Resist S.aureus DNA PCR NOT DETECTED 10/12/19 11:07: Nucleated Red Blood Cells % (auto) 0.0, Anion Gap 5L, Glomerular Filtration Rate 34.8, Calcium Level 9.6, Total Bilirubin 0.9, Aspartate Amino Transf (AST/SGOT) 81H, Alanine Aminotransferase (ALT/SGPT) 95H, Alkaline Phosphatase 271H, Total Protein 7.6, Albumin 2.0L, Albumin/Globulin Ratio 0.36L 10/13/19 06:48: Nucleated Red Blood Cells % (auto) 0.0, Anion Gap 8, Glomerular Filtration Rate 35.1, Calcium Level 8.3L, Total Bilirubin 0.8, Aspartate Amino Transf (AST/SGOT) 62H, Alanine Aminotransferase (ALT/SGPT) 89H, Alkaline Phosphatase 260H, Total Protein 6.6, Albumin 2.0L, Albumin/Globulin Ratio 0.43L, Erythrocyte Sedimentation Rate 128H, C-Reactive Protein, Quantitative 21.10H CBC/BMP Laboratory Tests 10/12/19 11:07 10/13/19 06:48 SKYLER FRAZIER MD Oct 13, 2019 09:27
[2019-10-13] MEDS: cefTRIAXone SOD 1 GM in D5W MINI-BAG PLUS 50 ML IV SCH (13:22)
[2019-10-13 14:00] VITALS: BP 145/70
--- NOTE | 2019-10-13 18:35 | REP ---
Clinical: Nonhealing right lower extremity ulcer. Technique: Real time bowman scale and color Doppler evaluation of the bilateral lower extremity arterial vasculature using linear high frequency transducer. Findings: Bowman scale and color images demonstrate moderate amounts of atheromatous plaquing with findings to suggest occlusion of the right posterior tibial artery as well as increased velocities of the bilateral distal anterior tibial arteries. KIMANI unobtainable bilaterally. 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 Scattered bilateral monophasic wave patterns. Electronically Signed by Shaka Kruger MD 10/13/2019 06:26 P
[2019-10-13] MEDS: FLUTICASONE PROP 0.05% NASAL SPRAY 16 GM (FLONASE) SCH (20:17)
[2019-10-13 22:00] VITALS: BP 161/78
[2019-10-14] MEDS: LEVOTHYROXINE 25MCG TABLET (0.025MG) PO SCH (05:51)
[2019-10-14 06:00] VITALS: BP 145/68
[2019-10-14 08:26] LABS: HEMATOCRIT 31.7 % (36.0-47.0); HEMOGLOBIN 10.5 g/dl (12.0-15.5); MEAN CORPUSCULAR HEMOGLOBIN 29.4 pg (27.0-33.0); MEAN CORPUSCULAR HGB CONC 33.1 g/dl (32.0-36.5); MEAN CORPUSCULAR VOLUME 88.8 fl (80.0-96.0); PLATELET COUNT, AUTOMATED 497 10^3/uL (150-450); RED BLOOD COUNT 3.57 10^6/uL (4.00-5.40); WHITE BLOOD COUNT 10.2 10^3/uL (4.0-10.0)
[2019-10-14 08:58] LABS: BILIRUBIN,TOTAL 0.7 MG/DL (0.2-1.0); C REACTIVE PROTEIN QUANTITATIV 18.3 MG/DL (0.00-0.30); CALCIUM LEVEL 8.6 MG/DL (8.8-10.2); CREATININE FOR GFR 1.39 MG/DL (0.55-1.30); GLOMERULAR FILTRATION RATE 38.3 (>32); POTASSIUM SERUM 4.1 MEQ/L (3.5-5.1); TOTAL PROTEIN 6.6 GM/DL (6.4-8.2)
[2019-10-14] MEDS: MEMANTINE 5MG TABLET (NAMENDA) PO SCH ×2 (08:58→20:35)
[2019-10-14] MEDS: TORSEMIDE 20 MG TAB PO SCH ×2 (08:58→17:45)
[2019-10-14] MEDS: DONEPEZIL 5 MG TAB PO SCH (08:58)
[2019-10-14] MEDS: DOCUSATE SODIUM 100 MG CAP PO SCH ×2 (08:58→20:35)
[2019-10-14] MEDS: HEPARIN SOD (PORCINE) 5000UNITS/ML VIAL (J1644 PER 1000UNITS) SQ SCH ×2 (08:59→20:35)
[2019-10-14] MEDS: MULTIVITAMINS/MINERALS THERAP 1 TAB PO SCH (08:59)
[2019-10-14] MEDS: SPIRONOLACTONE 25 MG TAB PO SCH (08:59)
[2019-10-14] MEDS: MOM 30ML SUSPENSION UDC PO SCH (09:00)
[2019-10-14] MEDS: MIRALAX *UNIT DOSE* 17GM PACKET PO SCH (09:00)
[2019-10-14] MEDS: VANCOMYCIN HCL 1,000 MG, VIAL MATE ADAPTER 1 EACH in D5W 250 ML IV SCH (09:01)
[2019-10-14 09:07] LABS: ERYTHROCYTE SEDIMENTATION RATE 128 mm/hr (0-30)
--- NOTE | 2019-10-14 11:01 | IPNPDOC ---
Subjective Date Seen The patient was seen on 10/14/19. Subjective Chief Complaint/HPI Patient seen and examined at bedside this morning. Patient states that she slept well overnight and has no complaints. She has been eating well and otherwise has been pain-free. She denies any recent fevers, chills, shortness of breath, chest pain, abdominal pain. Patient understands that she will undergo surgery tomorrow morning to help with her knee. She has no other complaints at this time. Other systems 10 point review of systems is negative except for what is stated above in subjective Objective Physical Examination General Exam: Positive: Alert, Cooperative, No Acute Distress, Other (obese female, sitting in bed appears to be comfortable) Eye Exam: Positive: PERRLA, Conjunctiva & lids normal, EOMI; Negative: Sclera icteric ENT Exam: Positive: Atraumatic, Mucous membr. moist/pink Neck Exam: Positive: Supple, JVD (unable to assess JVD due to clinical condition and obesity) Chest Exam: Positive: Clear to auscultation, Normal air movement; Negative: Rales, Rhonchi, Wheezing Heart Exam: Positive: Rate Normal, Regular Rhythm, Normal S1, Normal S2 Abdomen Exam: Positive: Normal bowel sounds, Soft; Negative: Tenderness, Hepatospenomegaly Extremity Exam: Positive: Edema, Normal pulses, Swelling (right knee joint appears to be swollen compared to left, erythematous. Large surgical scar noted in bilateral knees consistent with TKR in past); Negative: Clubbing, Tenderness Skin Exam: Positive: Nl turgor and temperature, Breakdown (right lower extremity ulceration noted approximately 4 cm x 6 cm. Granulation tissue seen. No gross evidence of infection or purulent drainage seen) Neuro Exam: Positive: Normal Tone, Sensation Intact, Cranial Nerves 3-12 NL, Other (unable to assess gait due to clinical condition) Psych Exam: Positive: Mental status NL, Mood NL, Oriented x 3 (oriented [address]) RAD Interpretation STUDY: arterial US of lower extr Rad Actions: Report Reviewed RAD Interpretation: Other Result Comments: (atherosclerotic occlusions noted on the posterior tibial artery. Monophasic waveforms noted.) Assessment /Plan Assessment 84-year-old female with multiple medical problems is sent in for likely septic arthritis. Patient has known prosthetic and will therefore require a lot of washout by orthopedic surgery on Friday. Patient has been medically cleared for surgery tomorrow. 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 This is likely the reason why she has a nonhealing ulcer noted. Unfortunately, there is no vascular surgery coverage here at this time. Patient will need to follow-up with vascular surgery after her procedure in the future date. Currently, she has good distal pulses noted on physical exam so there is no concern for ischemic limb. We'll continue with antibiotic therapy for septic arthritis. Patient to be nothing by mouth after midnight. Plan/VTE VTE Prophylaxis Ordered?: Yes Plan Diet: Continue Current Activity: Continue Current Therapy: PT, OT Diagnostics: Check Labs Anticipated Discharge: Sub Acute Rehab, Assisted Living 1. Septic arthritis- Patient had 20 mL of fluid which were drawn from her right knee. Fluid was consistent with likely infectious process. Currently on vancomycin and c eftriaxone. No evidence of systemic infection noted given lack of fever or elevated white count. CRP is high which is expected. Patient to undergo or washout and knee replacement on Friday as per conversation with orthopedic surgery. As per discussion with cardiology, no contraindications to surgery at this time. - Continue with vancomycin and ceftriaxone - Follow-up orthopedic surgery recommendations - Given patient does not have any decompensated heart failure or other acute cardiovascular issues, patient is medically optimized as low to intermediate cardiovascular risk patient for intermediate risk orthopedic procedure. Patient may proceed to surgery at this time given the risks and benefits due to her current condition. -Vascular surgery consult still pending - CBC, CRP, ESR daily 2. Dementia- Established issue. Néstor Chin has known dementia for many years. - Continue with Aricept and Namenda as per home dose 3. Obstructive sleep apnea- - Continue with CPAP at bedtime 4. Hypothyroidism - Follow-up TSH - Continue with Synthroid dosing as per home dose 5. Chronic back pain Established issue. On tylenol PRN at home. - c/w tylenol PRN for pain control 6. Congestive heart failure with preserved Ejection fraction, not in acute exacerbation Echo in October 2017 reveals diastolic dysfunction with no evidence of reduced EF. M edication review reveals patient is on diuretics likely for symptomatic management. Chest x-ray shows no worsening congestion from prior. - Continue with home dose of Aldactone and torsemide 7. 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 This is likely the reason why her wound is not healing properly. - Vascular surgery follow-up after her knee replacement. Currently there is no vascular surgery coverage at this time. VS, I&O, 24H, Fishbone Vital Signs/I&O Vital Signs Date Time Temp Pulse Resp B/P (MAP) Pulse Ox O2 Delivery O2 Flow Rate FiO2 10/14/19 06:00 98.6 93 17 145/68 (93) 98 Room Air l I&O- Last 24 Hours up to 6 AM 10/14/19 06:00 Intake Total 1460 ml Output Total 2300 ml Balance -840 ml Laboratory Data 24H LABS Laboratory Tests 2 10/14/19 08:10: Nucleated Red Blood Cells % (auto) 0.0, Erythrocyte Sedimentation Rate 128H, Anion Gap 10, Glomerular Filtration Rate 38.3, Calcium Level 8.6L, Total Bilirubin 0.7, Aspartate Amino Transf (AST/SGOT) 52H, Alanine Aminotransferase (ALT/SGPT) 78, Alkaline Phosphatase 248H, C-Reactive Protein, Quantitative 18.30H, Total Protein 6.6, Albumin 2.0L, Albumin/Globulin Ratio 0.43L CBC/BMP Laboratory Tests 10/14/19 08:10 SKYLER FRAZIER MD Oct 14, 2019 11:01
[2019-10-14] MEDS: PIPERACILLIN/TAZOBACTAM SOD 2.25 GM in D5W MINI-BAG PLUS 50 ML IV SCH ×3 (12:39→23:52)
[2019-10-14 14:00] VITALS: BP 117/69
--- NOTE | 2019-10-14 15:00 | IPN ---
DATE: 10/14/2019 Patient seen and examined. I tried to see her yesterday in the hospital. She was down in ultrasound getting an arterial Doppler. I have spoken at length with her daughter and the patient as well. The plan is to proceed with surgery tomorrow. I have talked her at length today and her knee looks basically unchanged. There is some mild erythema along the lateral aspect of the knee. She has a dressing on her lower leg for the chronic nonhealing leg ulcers. She actually has a palpable 1+ pulse in her dorsalis pedis on the right foot. Her knee wound is benign. The puncture site is covered with a Band-Aid from the aspiration a few days ago. Her laboratories demonstrate a white count of 10.2, hematocrit of 31.7, and a sed rate of 128. Her CRP is 18.3. She has a joint fluid analysis includes 31,660 white cells in the knee, which is likely indicative of an infection. In addition, her cultures came back positive for Pseudomonas. It appears to be sensitive to all antibiotics that were tested. Her x-ray shows a total knee arthroplasty that they said they could not rule out loosening of the tibial component. They were wondering if a three-phase bone scan would be indicated but I do not think in this case it is. I do not think it will change our management. According to the primary provider, hospitalists, the cardiology team has been contacted and the patient has been medically optimized to proceed for surgery. Antibiotics were adjusted given the presence of Pseudomonas, so the vancomycin and ceftriaxone were discontinued and Zosyn was started. The plan will be tomorrow proceed with surgical treatment of this infected knee, and I have discussed this with her and her daughter in detail and explained that the most likely scenario is that we would open the knee up, wash out the purulence, clean up any synovium and likely remove the components, especially if there is any sign of any loosening, but I think replacing the components with a Prostalac might make the most sense. The alternative would be to do a polyethylene exchange and a washout. We would likely use antibiotic beads and certainly antibiotic cement if we placed a Prostalac. I discussed this procedure in detail with her daughter and the patient today, and I have explained to her the risks which include but are not limited to bleeding, infection, damage to nerves, vessels, persistent pain, wear loosening, dislocation, fracture, stiffness, blood clots, medical problems, , need for further surgery or removal. There is also some risk of possible amputation above the knee. She understands this and the consent was signed. Apparently, the vascular surgeon was not available this week but I think given the fact that this is an infection of total joint and the fact that she does have a palpable pulse in her foot that we should proceed with the surgical procedure. I am very doubtful that they would recommend any sort of vascular procedure prior to that. I have also discussed this with my partner. Will anticipate taking care of this tomorrow. She will be preop today, nothing by mouth, 2 units of packed red blood cells are available because I anticipate not using a tourniquet given her vascular issues. I will also anticipate involving Dr. Guerrero if she is available. She may help us with antibiotics choice and duration.
[2019-10-14] MEDS: FLUTICASONE PROP 0.05% NASAL SPRAY 16 GM (FLONASE) SCH (20:35)
[2019-10-14 20:39] VITALS: BP 123/68
[2019-10-14] MEDS: ACETAMINOPHEN TAB 650MG DOSE (2X325MG) PO PRN (21:01)
--- NOTE | 2019-10-14 23:50 | CR ---
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 HISTORY OF THE PRESENT ILLNESS: Kourtney Hardin is an 84-year-old female who presented to the hospital due to an infected right knee prosthesis joint. She has a past medical history of dementia and is unable to provide a clear history, so much of the history is obtained from chart review. She was initially seen in the office on 10/11/[address] Roman due to concern for redness in her knee. Dr. Roman was able to aspirate the knee and found serosanguineous fluid. Synovial fluid analysis showed over 31,000 white blood cells in the knee. Dr. Roman decided surgical intervention would be appropriate and decided a hospital admission for surgical intervention and appropriate clearance prior to surgery was warranted. The patient was admitted to the hospital on 10/12/2019. She had the right knee replaced about 22 years ago. Prior to hospital admission, she was living at [facility], according to the patient. She cannot tell me how long the knee was hurting her for, but does state it has been painful. She also notes that she typically wears a brace on the right leg and that the brace was not working properly anymore. She states she is unable to bear weight on the right leg. She had traumatic blister to the right leg which was large and hemorrhagic. She was following up with DR Archer and had blister unroofed in early August , the wound was purulent on admission . REVIEW OF SYSTEMS: Ten-point review of systems other than noted in history of the present illness was negative. PAST MEDICAL HISTORY: 1. Hypertension. 2. Congestive heart failure. 3. Sleep apnea. 4. Obesity. 5. Chronic kidney disease stage III. 6. Venous stasis ulcer of the right lower extremity. 7. Alzheimer Dementia. 8. Hypothyroidism. PAST SURGICAL HISTORY: Tonsillectomy, partial hysterectomy, carpal tunnel release, trigger thumb release, hammertoe surgery, bunionectomy, pilonidal cyst removal, hernia repair, bilateral total knee arthroplasty. FAMILY MEDICAL HISTORY: Mother had a history of heart disease, hypertension, and thyroid disease. Father had cirrhosis. Sister had a history of heart disease. Brother had a history of heart disease. SOCIAL HISTORY: States she lives at [facility] prior to admission to the hospital. Former smoker. Denies alcohol use. CURRENT INPATIENT MEDICATIONS: - Zosyn 2.25 grams every 6 hours - levothyroxine 25 mcg Friday, Friday, , Friday - levothyroxine 50 mcg Friday, Friday, Friday - heparin 5000 units every 12 hours subcutaneous - Aricept 5 mg daily - multivitamin daily - spironolactone 25 mg daily - magnesium hydroxide 30 mL daily - MiraLAX one packet daily - Colace 100 mg twice a day - Flonase one spray every night - memantine twice a day - torsemide 40 mg twice a day PHYSICAL EXAM: Vital Signs: Temperature 98.3 Fahrenheit oral, heart rate 83, respiratory rate 20, blood pressure 117/69, pulse oximetry 96% on room air. General: Appears comfortable, lying in bed, in no acute distress. HEENT: Normocephalic, atraumatic. Sclerae anicteric. Moist mucous membranes. Neck: Supple without lymphadenopathy. Lungs: Clear to auscultation bilaterally without wheezing, rhonchi or rales. Heart: Regular rate and rhythm. Normal S1 and S2 with a systolic ejection murmur over the right sternal border. Abdomen: Soft, nontender, nondistended. Bowel sounds present. Extremities: Erythema and warmth over the right knee with fluctuance around the right knee joint. Decreased range of motion at the right knee. There is also a 10 cm x 7 cm ulceration on the mid chaudhary of the right leg, which appears red and beefy with purulent drainage. Neurologic: Alert and oriented to person. States she is in [facility] but later states she knows she is in the hospital. No focal neurological deficits appreciated. LABORATORY DATA: White blood cell count 10.2, hemoglobin 10.5, hematocrit 31.7, platelet count 497, sodium 137, potassium 4.1, chloride 100, carbon dioxide 27, BUN 44, creatinine 1.39, fasting glucose 112, calcium 8.6, total bilirubin 0.7, AST 52, ALT 78, alkaline phosphatase 248, CRP 18.3, total protein 6.6, albumin 2.0. Methicillin-resistant Staphylococcus aureus (MRSA) screen negative. Synovial fluid aspiration analysis from the right knee shows white blood cell count 31,660, red blood cell count 72, PMNs 91%, No fluid crystals seen. Fluid was described as chanda and cloudy. Culture of the fluid grew Pseudomonas aeruginosa pansensitive on sensitivity analysis. Blood cultures times two negative after 5 days, drawn on 10/07/2019. 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 She will need surgical removal of Right knee prosthesis. As she is not ambulatory she will have one step procedure removal of prosthesis and no reimplantation PLAN: Agree with Zosyn for IV antibiotic coverage, which was started today. She will need 6 weeks total ofanti biotic coverage. On discharge, she can be switched to an oral quinolone to complete her antibiotic course. She will not need a peripherally inserted central catheter (PICC) line on discharge. Dr. Roman plans to proceed with surgical removal of the prosthetic hardware a nd placement of a cement spacer tomorrow. Thank you for this consult. NAIF
[2019-10-15] MEDS: LEVOTHYROXINE 50MCG TABLET (0.05MG) PO SCH (05:52)
[2019-10-15] MEDS: PIPERACILLIN/TAZOBACTAM SOD 2.25 GM in D5W MINI-BAG PLUS 50 ML IV SCH ×4 (05:52→23:11)
[2019-10-15 05:55] VITALS: BP 115/68
[2019-10-15 08:10] LABS: HEMATOCRIT 30.9 % (36.0-47.0); MEAN CORPUSCULAR HGB CONC 32.4 g/dl (32.0-36.5); MEAN CORPUSCULAR VOLUME 89.6 fl (80.0-96.0); PLATELET COUNT, AUTOMATED 483 10^3/uL (150-450); RED BLOOD COUNT 3.45 10^6/uL (4.00-5.40); WHITE BLOOD COUNT 8.2 10^3/uL (4.0-10.0)
[2019-10-15] MEDS: MIRALAX *UNIT DOSE* 17GM PACKET PO SCH (08:24)
[2019-10-15] MEDS: MOM 30ML SUSPENSION UDC PO SCH (08:24)
[2019-10-15] MEDS: DOCUSATE SODIUM 100 MG CAP PO SCH ×2 (08:29→23:10)
[2019-10-15] MEDS: TORSEMIDE 20 MG TAB PO SCH ×2 (08:29→17:34)
[2019-10-15] MEDS: SPIRONOLACTONE 25 MG TAB PO SCH (08:29)
[2019-10-15] MEDS: MEMANTINE 5MG TABLET (NAMENDA) PO SCH ×2 (08:29→23:10)
[2019-10-15] MEDS: DONEPEZIL 5 MG TAB PO SCH (08:29)
[2019-10-15] MEDS: MULTIVITAMINS/MINERALS THERAP 1 TAB PO SCH (08:29)
[2019-10-15 08:30] LABS: ALBUMIN 1.9 GM/DL (3.2-5.2); BILIRUBIN,TOTAL 0.7 MG/DL (0.2-1.0); C REACTIVE PROTEIN QUANTITATIV 13.5 MG/DL (0.00-0.30); CALCIUM LEVEL 8.3 MG/DL (8.8-10.2); CREATININE FOR GFR 1.55 MG/DL (0.55-1.30); ERYTHROCYTE SEDIMENTATION RATE 126 mm/hr (0-30); GLOMERULAR FILTRATION RATE 33.7 (>32); POTASSIUM SERUM 3.9 MEQ/L (3.5-5.1); TOTAL PROTEIN 6.4 GM/DL (6.4-8.2)
[2019-10-15] MEDS ORDERED: LACTOBACILLUS ACIDOPHILUS CAP (BACID) PO SCH (09:00)
--- NOTE | 2019-10-15 11:20 | IPNPDOC ---
Subjective Date Seen The patient was seen on 10/15/19. Subjective Chief Complaint/HPI Patient seen and examined at bedside this morning. Patient is in good spirits and is ready for her surgery. She denies any recent fevers, chills, shortness of breath, chest pain, abdominal pain. She states that the knee is still uncomfortable in that she does have some back pain due to the bed. However, the pain is manageable at this time. She has no further complaints and all questions regarding her surgery and condition were answered at bedside. Other systems 10 point review of systems is negative except for what stated above in subjective Objective Physical Examination General Exam: Positive: Alert, Cooperative, No Acute Distress, Other (obese female, sitting in bed appears to be comfortable) Eye Exam: Positive: PERRLA, Conjunctiva & lids normal, EOMI; Negative: Sclera icteric ENT Exam: Positive: Atraumatic, Mucous membr. moist/pink Neck Exam: Positive: Supple, JVD (unable to assess JVD due to clinical condition and obesity) Chest Exam: Positive: Clear to auscultation, Normal air movement; Negative: Rales, Rhonchi, Wheezing Heart Exam: Positive: Rate Normal, Regular Rhythm, Normal S1, Normal S2 Abdomen Exam: Positive: Normal bowel sounds, Soft; Negative: Tenderness, Hepatospenomegaly Extremity Exam: Positive: Edema, Normal pulses, Swelling (right knee joint appears to be swollen compared to left, erythematous. Large surgical scar noted in bilateral knees consistent with TKR in past); Negative: Clubbing, Tenderness Skin Exam: Positive: Nl turgor and temperature, Breakdown (right lower extremity ulceration noted approximately 4 cm x 6 cm. Granulation tissue seen. N o gross evidence of infection or purulent drainage seen) Neuro Exam: Positive: Normal Tone, Sensation Intact, Cranial Nerves 3-12 NL, Other (unable to assess gait due to clinical condition) Psych Exam: Positive: Mental status NL, Mood NL, Oriented x 3 (oriented [address]) Assessment /Plan Assessment 84-year-old female with multiple medical problems is sent in for likely septic arthritis in a prosthetic joint. Currently growing Pseudomonas in the synovial fluid and is on Zosyn therapy. Patient to go to OR today for washout and replacement of the knee with new prosthetic. Patient remains medically stable for surgery at this time remains optimized. Plan/VTE VTE Prophylaxis Ordered?: Yes Plan Diet: Make NPO Activity: Continue Current Therapy: PT, OT Diagnostics: Check Labs Anticipated Discharge: Sub Acute Rehab, Assisted Living 1. Septic arthritis- Patient had 20 mL of fluid which were drawn from her right knee. Fluid is growing Pseudomonas. Antibody for changed to Zosyn yesterday. Patient scheduled for OR washout and removal of hardware later this afternoon - c/w zosyn - Follow-up orthopedic surgery recommendations - Given patient does not have any decompensated heart failure or other acute car diovascular issues, patient is medically optimized as low to intermediate cardiovascular risk patient for intermediate risk orthopedic procedure. Patient may proceed to surgery at this time given the risks and benefits due to her current condition. - CBC, CRP, ESR daily 2. Dementia- Established issue. Néstor Roper has known dementia for many years. - Continue with Aricept and Namenda as per home dose 3. Obstructive sleep apnea- - Continue with CPAP at bedtime 4. Hypothyroidism - Follow-up TSH - Continue with Synthroid dosing as per home dose 5. Chronic back pain Established issue. On tylenol PRN at home. - c/w tylenol PRN for pain control 6. Congestive heart failure with preserved Ejection fraction, not in acute exacerbation Echo in October 2017 reveals diastolic dysfunction with no evidence of reduced EF. Medication review reveals patient is on diuretics likely for symptomatic management. Chest x-ray shows no worsening congestion from prior. - Continue with home dose of Aldactone and torsemide 7. 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 This is likely the reason why her wound is not healing properly. - Vascular surgery follow-up after her knee replacement. Currently there is no vascular surgery coverage at this time. VS, I&O, 24H, Fishbone Vital Signs/I&O Vital Signs Date Time Temp Pulse Resp B/P (MAP) Pulse Ox O2 Delivery O2 Flow Rate FiO2 10/15/19 05:55 98.8 73 17 115/68 (84) 95 Room Air I&O- Last 24 Hours up to 6 AM 10/15/19 06:00 Intake Total 1710 ml Output Total 1300 ml Balance 410 ml Laboratory Data 24H LABS Laboratory Tests 2 10/15/19 07:27: Nucleated Red Blood Cells % (auto) 0.0, Erythrocyte Sedimentation Rate 126H, Anion Gap 9, Glomerular Filtration Rate 33.7, Calcium Level 8.3L, Total Bilirubin 0.7, Aspartate Amino Transf (AST/SGOT) 41H, Alanine Aminotransferase (ALT/SGPT) 64, Alkaline Phosphatase 229H, C-Reactive Protein, Quantitative 13.50H, Total Protein 6.4, Albumin 1.9L, Albumin/Globulin Ratio 0.42L CBC/BMP Laboratory Tests 10/15/19 07:27 SKYLER FRAZIER MD Oct 15, 2019 11:19
[2019-10-15 11:30] LABS: RHEUMATOID FACTOR QUANT 21.7 IU/ML (<15.0)
[2019-10-15] MEDS: LACTOBACILLUS ACIDOPHILUS CAP (BACID) PO SCH ×2 (11:45→17:35)
[2019-10-15 14:00] VITALS: BP 118/68
[2019-10-15] MEDS ORDERED: ceFAZolin 1GM VIAL (J0690 PER 500MG) As Ordered ONE ×2 (18:14→19:47)
[2019-10-15] MEDS ORDERED: MIDAZOLAM INJ 2MG/2ML VIAL (J2250 PER 1MG) As Ordered ONE (18:18)
[2019-10-15] MEDS ORDERED: fentaNYL 100 MCG/2 ML INJECTION (J3010) As Ordered ONE (18:19)
[2019-10-15] MEDS ORDERED: propofoL 200 MG/20 ML VIAL As Ordered ONE (18:21)
[2019-10-15] MEDS ORDERED: TOBRAMYCIN SULF 1.2 GM VIAL As Ordered ONE ×2 (19:18→19:54)
[2019-10-15] MEDS ORDERED: PHENYLephrine HCL 500 MCG/5 ML (100MCG/ML) SYRINGE (J2370) As Ordered ONE ×3 (19:28→20:15)
--- NOTE | 2019-10-15 19:28 | IPN ---
DATE: 10/15/2019 Patient seen and examined preoperatively. She wished to go ahead with a right knee revision and likely removal of an infected total knee, likely placement of a Prostalac cement spacer. We will, of course, do an aggressive irrigation and debridement. I have discussed the case with Dr. Guerrero as well. Anticipation of using antibiotic cement and antibiotic beads. The patient understands the nature of the procedure, and the risks of bleeding, infection, damage to nerves, vessels, persistent pain, loosening, wear, dislocation, blood clots, medical problems, and some risk of amputation given her chronic ulcers in her leg and this infected knee. I have discussed this with her in detail and with her daughter.
[2019-10-15] MEDS ORDERED: ONDANSETRON 4MG/2ML VIAL As Ordered ONE (20:22)
[2019-10-15] MEDS ORDERED: PHENYLEPHRINE 10MG/ML 1ML VIAL (J2370 PER 1) As Ordered ONE (20:23)
[2019-10-15] MEDS ORDERED: HYDROMORPHONE HCL 0.5 MG/ 0.5 ML SYRINGE (J1170 PER 1) IV PRN (21:00)
[2019-10-15] MEDS ORDERED: ONDANSETRON 4MG/2ML VIAL IV PRN (21:00)
[2019-10-15] MEDS ORDERED: LR 1,000 ML IV SCH ×2 (21:00→21:15)
[2019-10-15] MEDS ORDERED: fentaNYL 100 MCG/2 ML INJECTION (J3010) IV PRN (21:00)
[2019-10-15] MEDS ORDERED: oxyCODONE 5MG TAB PO PRN (21:00)
[2019-10-15] MEDS: PHENYLephrine HCL 500 MCG/5 ML (100MCG/ML) SYRINGE (J2370) IV PRN ×5 (21:15→21:40)
[2019-10-15] MEDS ORDERED: PERCOCET 5MG/325MG TAB PO PRN (21:15)
[2019-10-15] MEDS ORDERED: MORPHINE 2 MG/ML 1ML VIAL (J2270) IV PRN (21:15)
[2019-10-15 22:44] VITALS: BP 95/47
[2019-10-15] MEDS: FLUTICASONE PROP 0.05% NASAL SPRAY 16 GM (FLONASE) SCH (23:10)
[2019-10-15] MEDS: traMADol 50 MG TAB PO PRN (23:23)
[2019-10-15] MEDS: ACETAMINOPHEN TAB 650MG DOSE (2X325MG) PO PRN (23:23)
[2019-10-15 23:45] VITALS: BP 70/39
[2019-10-16] VITALS (7 sets, daily range): BP systolic 104–141; BP diastolic 50–68
[2019-10-16] MEDS: PIPERACILLIN/TAZOBACTAM SOD 2.25 GM in D5W MINI-BAG PLUS 50 ML IV SCH ×3 (05:06→17:45)
[2019-10-16] MEDS: ACETAMINOPHEN TAB 650MG DOSE (2X325MG) PO PRN ×2 (05:06→20:57)
[2019-10-16] MEDS: LEVOTHYROXINE 25MCG TABLET (0.025MG) PO SCH (05:06)
[2019-10-16] MEDS: traMADol 50 MG TAB PO PRN ×2 (06:21→20:58)
--- NOTE | 2019-10-16 08:00 | IPN ---
DATE: 10/15/2019 Ms. Hardin was seen today. She was in bed trying to call her family. She denied any complaint. She had a low grade fever last night, but no chills. No nausea, vomiting or diarrhea. She continues complaining of some knee pain, but nothing that is out of control and low back pain. She is tolerating antibiotics currently on IV Zosyn day #2 without any complications. On physical exam, temperature was 100.5 last night, today 98.8. Pulse 73. Respirations 17. Blood pressure 115/68. Oxygen saturation 95% on room air. Heart: Normal S1, S2 with a systolic ejection murmur 2/6 at the left upper sternal border. Lungs: Clear. No rales or rhonchi. Abdomen: Morbidly obese, soft, nontender. Extremities: Right lower extremity has a large ulcer measuring about 6 x 4 cm with purulent discharge and granulation tissue. Right knee is swollen, erythematous with fluctuance, limited range of motion. Surgical scar of bilateral total knee replacement. Extremities: +1 pitting edema bilaterally. No clubbing or cyanosis. Neurologic Exam; The patient is alert, oriented times three. She gets confused at times, but for the most part is doing well and is able to give a decent history. LABORATORY DATA: White count 8.2, hemoglobin 10, hematocrit 30.9, platelets 483. ESR 126. Sodium 136, potassium 3.9, chloride 99, bicarbonate 28, BUN 40 creatinine 1.55, glucose 102, calcium 8.3, AST 41, ALT 64, alkaline phosphatase 229, CRP 13.5, total protein 6.4, albumin 1.9. Outpatient cultures had Pseudomonas aeruginosa pansensitive to Cefepime, ceptazadine, gentamicin, levofloxacin, meropenem, Zosyn and Tobramycin. IMPRESSION: 1. Infected wound of the right lower extremity with purulent drainage, most likely is the source of infection. 2. Right knee prosthetic joint infection. Scheduled for the operating room this afternoon for removal of prosthesis and cement spacer. The patient will also have a wash done with tobramycin to cover for Pseudomonas. The patient is on IV Zosyn doing well. 3. Severe arthritis, most likely rheumatoid arthritis. The patient has multiple [place]ck deformities of her fingers. 4. Dementia, stable. PLAN: Continue with IV Zosyn while the patient is in the hospital. Patient is undergoing surgical removal of the prosthesis with cement spacer, which will be a permanent joint and the patient will not have a second permanent prosthesis placed. Once stable and healing well, the patient could be discharged home to finish a 6 weeks course of oral antibiotics with levofloxacin at the care home. She will not need a peripherally inserted central catheter (PICC) or IV antibiotics as quinolones are 95% bioavailable. Will start probiotics to decrease hopefully the change of Clostridium difficile in an elderly patient.
--- NOTE | 2019-10-16 08:12 | IPN ---
DATE: 10/16/2019 CHIEF COMPLAINT: Postoperative day #1 right revision total knee arthroplasty. HISTORY OF PRESENT ILLNESS:: This 84-year-old female underwent right total knee arthroplasty revision for infection yesterday by Dr. Roman and Dr. Tirado. She is doing well. No pain in her chest. No bleeding, numbness or tingling in the foot. No concerns from the nursing staff. PHYSICAL EXAMINATION: Well-appearing 84-year-old female. Her vital signs are stable. She is comfortable. Nonlabored breathing. She is alert and x3. Dressing is in situ with a knee immobilizer. Normal sensation in the foot. The foot is warm and well perfused. Good dorsalis pedis pulse. She is able to wiggle her toes, dorsiflex and plantar flex the foot. ASSESSMENT/PLAN: 84-year-old female who will be mobilized per Dr. Roman's orders. She will need disposition planning in the long run and Dr. Guerrero, the infectious disease specialist, is managing her antibiotics.
[2019-10-16 08:19] LABS: HEMATOCRIT 29.6 % (36.0-47.0); HEMOGLOBIN 9.3 g/dl (12.0-15.5); MEAN CORPUSCULAR HEMOGLOBIN 28.3 pg (27.0-33.0); MEAN CORPUSCULAR HGB CONC 31.4 g/dl (32.0-36.5); PLATELET COUNT, AUTOMATED 539 10^3/uL (150-450); RED BLOOD COUNT 3.29 10^6/uL (4.00-5.40); WHITE BLOOD COUNT 20.8 10^3/uL (4.0-10.0)
[2019-10-16] MEDS: MULTIVITAMINS/MINERALS THERAP 1 TAB PO SCH (08:46)
[2019-10-16] MEDS: SPIRONOLACTONE 25 MG TAB PO SCH (08:46)
[2019-10-16] MEDS: DONEPEZIL 5 MG TAB PO SCH (08:46)
[2019-10-16] MEDS: TORSEMIDE 20 MG TAB PO SCH ×2 (08:46→17:46)
[2019-10-16] MEDS: DOCUSATE SODIUM 100 MG CAP PO SCH ×2 (08:46→20:57)
[2019-10-16] MEDS: LACTOBACILLUS ACIDOPHILUS CAP (BACID) PO SCH ×2 (08:46→17:46)
[2019-10-16] MEDS: MEMANTINE 5MG TABLET (NAMENDA) PO SCH ×2 (08:46→20:57)
[2019-10-16] MEDS: MOM 30ML SUSPENSION UDC PO SCH (08:47)
[2019-10-16] MEDS: MIRALAX *UNIT DOSE* 17GM PACKET PO SCH (08:47)
[2019-10-16 08:48] LABS: ALBUMIN 2.1 GM/DL (3.2-5.2); CALCIUM LEVEL 8.8 MG/DL (8.8-10.2); CREATININE FOR GFR 2.23 MG/DL (0.55-1.30); GLOMERULAR FILTRATION RATE 22.2 (>32); POTASSIUM SERUM 4.6 MEQ/L (3.5-5.1); TOTAL PROTEIN 6.5 GM/DL (6.4-8.2)
--- NOTE | 2019-10-16 10:05 | REP ---
RIGHT KNEE, TWO VIEWS: Two views of the right knee are performed. The previously noted metallic prosthesis has been removed and replaced by dense material in the distal femur and proximal tibia. Multiple subcentimeter radiodensities are seen surrounding the distal femur extending into the anterior knee joint. Air and fluid is seen in the suprapatellar region. Metallic skin kenia are seen anteriorly. Electronically Signed by Seferino Bowman MD 10/16/2019 10:20 A
--- NOTE | 2019-10-16 10:34 | IPNPDOC ---
Subjective Date Seen The patient was seen on 10/16/19. Subjective Chief Complaint/HPI Patient seen and examined at bedside this morning. Patient appears to be cheerful and states that she rested well overnight. She complains of some pain in her right leg when it is touched or moved but otherwise says it is bearable. She denies any fevers, chills, she was breath, chest pain, abdominal pain. She has no other complaints at this time. Other systems 10 point review of systems is negative except for what is stated above in the subjective Objective Physical Examination General Exam: Positive: Alert, Cooperative, No Acute Distress, Other (obese female, sitting in bed appears to be comfortable) Eye Exam: Positive: PERRLA, Conjunctiva & lids normal, EOMI; Negative: Sclera icteric ENT Exam: Positive: Atraumatic, Mucous membr. moist/pink Neck Exam: Positive: Supple, JVD (unable to assess JVD due to clinical condition and obesity) Chest Exam: Positive: Clear to auscultation, Normal air movement; Negative: Rales, Rhonchi, Wheezing Heart Exam: Positive: Rate Normal, Regular Rhythm, Normal S1, Normal S2 Abdomen Exam: Positive: Normal bowel sounds, Soft; Negative: Tenderness, Hepatospenomegaly Extremity Exam: Positive: Edema, Normal pulses, Other (right lower extremity is currently immobilized. Surgical site appears to be clean, dry, intact. Good distal pulses appreciated on exam.); Negative: Clubbing, Tenderness Skin Exam: Positive: Nl turgor and temperature, Breakdown (right lower extremity ulceration noted approximately 4 cm x 6 cm. Granulation tissue seen. 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 Patient is postop day #1 after a while washout and replacement of hardware. No real fluid had tested positive for Pseudomonas and patient is currently on IV Zosyn. I do recommendations noted and appreciated. Pain is currently well controlled and patient is feeling better. Labs are reviewed and does show acute kidney injury which may be related to the surgery. We'll start her on some fluids and encourage by mouth intake at this time. Plan/VTE VTE Prophylaxis Ordered?: Yes Plan IVF: Initiate Diet: Advance Activity: Continue Current Therapy: PT, OT Medications: Other Med: (continue with antibiotics) Diagnostics: Check Labs, Repeat Labs in AM Anticipated Discharge: Sub Acute Rehab, Assisted Living Septic arthritis- s/p OR washout and replacement, POD 1 Patient has known pseudomonal infection in the joint. It was replaced by orthopedic surgery with new hardware. ID recommendations seen and appreciated. We'll continue Zosyn for now as per the request. Patient to be switched to Levaquin upon discharge - c/w zosyn - Follow-up orthopedic surgery recommendations - CBC, CRP, ESR daily TRINIDAD likely pre-renal Review labs this morning shows patient does have a GI compared to her baseline. It was noted during the operation, patient was given multiple doses of vasopressors which may be the likely cause. Patient currently is hemodynamically stable. - Start IV fluids and encourage by mouth intake - Avoid nephrotoxic medication - Dose medications for reduced GFR Dementia- Established issue. Néstor Roper has known dementia for many years. - Continue with Aricept and Namenda as per home dose Obstructive sleep apnea- - Continue with CPAP at bedtime Hypothyroidism - Continue with Synthroid dosing as per home dose Chronic back pain Established issue. On tylenol PRN at home. - c/w tylenol PRN for pain control Congestive heart failure with preserved Ejection fraction, not in acute exacerbation Echo in October 2017 reveals diastolic dysfunction with no evidence of reduced EF. Medication review reveals patient is on diuretics likely for symptomatic management. Chest x-ray shows no worsening congestion from prior. 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 This is likely the reason why her wound is not healing properly. - Vascular surgery follow-up after her knee replacement. Currently there is no vascular surgery coverage at this time. VS, I&O, 24H, Fishbone Vital Signs/I&O Vital Signs Date Time Temp Pulse Resp B/P (MAP) Pulse Ox O2 Delivery O2 Flow Rate FiO2 10/16/19 06:21 20 10/16/19 05:57 98.0 67 127/59 (81) 100 Nasal Cannula 2.0 I&O- Last 24 Hours up to 6 AM 10/16/19 06:00 Intake Total 2290 ml Output Total 1100 ml Balance 1190 ml Laboratory Data 24H LABS Laboratory Tests 2 10/16/19 07:49: Nucleated Red Blood Cells % (auto) 0.0, Anion Gap 12, Glomerular Filtration Rate 22.2L, Calcium Level 8.8, Total Bilirubin 1.0, Aspartate Amino Transf (AST/SGOT) 39H, Alanine Aminotransferase (ALT/SGPT) 64, Alkaline Phosphatase 209H, Total Protein 6.5, Albumin 2.1L, Albumin/Globulin Ratio 0.48L CBC/BMP Laboratory Tests 10/16/19 07:49 Microbiology Microbiology 10/15/19 Gram Stain - Final, Resulted 10/15/19 Wound Culture, Resulted Pending 10/15/19 Anaerobic Culture, Resulted Pending SKYLER FRAZIER MD Oct 16, 2019 10:34
[2019-10-16] MEDS: FLUTICASONE PROP 0.05% NASAL SPRAY 16 GM (FLONASE) SCH (20:58)
[2019-10-17] MEDS: PIPERACILLIN/TAZOBACTAM SOD 2.25 GM in D5W MINI-BAG PLUS 50 ML IV SCH ×5 (00:30→23:33)
[2019-10-17 05:34] VITALS: BP 154/59
[2019-10-17] MEDS: ACETAMINOPHEN TAB 650MG DOSE (2X325MG) PO PRN ×2 (06:29→21:01)
[2019-10-17] MEDS: LEVOTHYROXINE 25MCG TABLET (0.025MG) PO SCH (06:29)
[2019-10-17] MEDS: traMADol 50 MG TAB PO PRN ×3 (06:29→21:01)
[2019-10-17 07:51] LABS: HEMATOCRIT 24.2 % (36.0-47.0); MEAN CORPUSCULAR HEMOGLOBIN 29.3 pg (27.0-33.0); MEAN CORPUSCULAR HGB CONC 33.1 g/dl (32.0-36.5); MEAN CORPUSCULAR VOLUME 88.6 fl (80.0-96.0); PLATELET COUNT, AUTOMATED 533 10^3/uL (150-450); RED BLOOD COUNT 2.73 10^6/uL (4.00-5.40); WHITE BLOOD COUNT 21.7 10^3/uL (4.0-10.0)
[2019-10-17] MEDS: SPIRONOLACTONE 25 MG TAB PO SCH (08:08)
[2019-10-17] MEDS: MOM 30ML SUSPENSION UDC PO SCH (08:08)
[2019-10-17] MEDS: MEMANTINE 5MG TABLET (NAMENDA) PO SCH ×2 (08:08→21:01)
[2019-10-17] MEDS: TORSEMIDE 20 MG TAB PO SCH ×2 (08:08→17:04)
[2019-10-17] MEDS: MULTIVITAMINS/MINERALS THERAP 1 TAB PO SCH (08:08)
[2019-10-17] MEDS: LACTOBACILLUS ACIDOPHILUS CAP (BACID) PO SCH ×2 (08:08→17:04)
[2019-10-17] MEDS: DONEPEZIL 5 MG TAB PO SCH (08:08)
[2019-10-17] MEDS: DOCUSATE SODIUM 100 MG CAP PO SCH ×2 (08:08→21:00)
[2019-10-17] MEDS: MIRALAX *UNIT DOSE* 17GM PACKET PO SCH (08:09)
[2019-10-17 08:18] LABS: BILIRUBIN,TOTAL 0.6 MG/DL (0.2-1.0); CALCIUM LEVEL 8.9 MG/DL (8.8-10.2); CREATININE FOR GFR 2.6 MG/DL (0.55-1.30); GLOMERULAR FILTRATION RATE 18.6 (>32); POTASSIUM SERUM 4.1 MEQ/L (3.5-5.1); TOTAL PROTEIN 6.1 GM/DL (6.4-8.2)
--- NOTE | 2019-10-17 08:43 | IPN ---
DATE: 10/17/2019 CHIEF COMPLAINT: Postop day #2 right total knee arthroplasty revision for infection. HISTORY OF PRESENT ILLNESS: This is an 84-year-old female seen on [address] [place]. She is doing well. No concerns from her nurses. PHYSICAL EXAM: She is a well-appearing 84-year-old female. BECKY bandaged been removed. There is small amount of strike through on the occlusive dressing. Foot is warm well perfuse. She is able to wiggle toes, dorsiflex, plantar flex her foot. Normal sensation of the foot. ASSESSMENT/PLAN: This 84-year-old female is awaiting disposition planning. Notes per infectious disease (ID) service noted in the chart and management per the hospitalist team. No concerns from orthopedic staff on the weekend.
--- NOTE | 2019-10-17 09:45 | IPNPDOC ---
Subjective Date Seen The patient was seen on 10/17/19. Subjective Chief Complaint/HPI Patient seen and examined at bedside this morning. Patient appears in good spirits and has no general complaints. She states that she slept well overnight and the pain in her leg is tolerable. She denies any recent fevers, chills, shortness of breath, chest pain. She still have some minor back pain which is chronic for her due to her body habitus. Otherwise, patient has no other complaints at this time. Other systems 10 point review systems is negative except for what is stated above in the subjective Objective Physical Examination General Exam: Positive: Alert, Cooperative, No Acute Distress, Other (obese female, sitting in bed appears to be comfortable) Eye Exam: Positive: PERRLA, Conjunctiva & lids normal, EOMI; Negative: Sclera icteric ENT Exam: Positive: Atraumatic, Mucous membr. moist/pink Neck Exam: Positive: Supple, JVD (unable to assess JVD due to clinical condition and obesity) Chest Exam: Positive: Clear to auscultation, Normal air movement; Negative: Rales, Rhonchi, Wheezing Heart Exam: Positive: Rate Normal, Regular Rhythm, Normal S1, Normal S2 Abdomen Exam: Positive: Normal bowel sounds, Soft; Negative: Tenderness, Hepatospenomegaly Extremity Exam: Positive: Edema, Normal pulses, Other (right lower extremity is currently immobilized. Surgical site appears to be clean, dry, intact. Good distal pulses appreciated on exam.); Negative: Clubbing, Tenderness Skin Exam: Positive: Nl turgor and temperature, Breakdown (right lower extremity ulceration noted approximately 4 cm x 6 cm. Granulation tissue seen. 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 Patient is postop day #2 after a while washout and replacement of hardware. Continuing with IV Zosyn for now. ID recommendations noted and appreciated. Renal function did not improve today so place on half normal saline. We'll continue with hydration for now and monitor renal function tomorrow. Patient will need PT eval for disposition. 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 It was replaced by orthop edic surgery with new hardware. ID recommendations seen and appreciated. We'll continue Zosyn for now as per the request. Patient to be switched to Levaquin upon discharge As per orthopedic surgery, no complications noted. - c/w zosyn - Follow-up orthopedic surgery recommendations - CBC, CRP, ESR daily TRINIDAD likely pre-renal Renal function did not improve significantly yesterday. Patient started on half- normal saline and we will continue hydration for the next 24 hours and reassess tomorrow morning. - Start IV fluids and encourage by mouth intake - Avoid nephrotoxic medication - Dose medications for reduced GFR Dementia- Established issue. Patient has known dementia for many years. - Continue with Aricept and Namenda as per home dose Obstructive sleep apnea- - Continue with CPAP at bedtime Hypothyroidism - Continue with Synthroid dosing as per home dose Chronic back pain Established issue. On tylenol PRN at home. - c/w tylenol PRN for pain control Congestive heart failure with preserved Ejection fraction, not in acute exacerbation Echo in October 2017 reveals diastolic dysfunction with no evidence of reduced EF. Medication review reveals patient is on diuretics likely for symptomatic management. Chest x-ray shows no worsening congestion from prior. 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 This is likely the reason why her wound is not healing properly. - Vascular surgery follow-up after her knee replacement. Currently there is no v ascular surgery coverage at this time. VS, I&O, 24H, Fishbone Vital Signs/I&O Vital Signs Date Time Temp Pulse Resp B/P (MAP) Pulse Ox O2 Delivery O2 Flow Rate FiO2 10/17/19 08:09 18 Room Air 10/17/19 05:34 97.1 71 154/59 (90) 96 10/16/19 14:00 2.0 I&O- Last 24 Hours up to 6 AM 10/17/19 06:00 Intake Total 1010 ml Balance 1010 ml Laboratory Data 24H LABS Laboratory Tests 2 10/17/19 07:31: Nucleated Red Blood Cells % (auto) 0.0, Anion Gap 12, Glomerular Filtration Rate 18.6L, Calcium Level 8.9, Total Bilirubin 0.6, Aspartate Amino Transf (AST/SGOT) 21, Alanine Aminotransferase (ALT/SGPT) 41, Alkaline Phosphatase 152H, Total Protein 6.1L, Albumin 2.0L, Albumin/Globulin Ratio 0.49L CBC/BMP Laboratory Tests 10/17/19 07:31 Microbiology Microbiology 10/15/19 Gram Stain - Final, Resulted 10/15/19 Wound Culture, Resulted Pending 10/15/19 Anaerobic Culture, Resulted Pending SKYLER FRAZIER MD Oct 17, 2019 09:45
--- NOTE | 2019-10-17 09:50 | RO ---
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 PROCEDURE: Resection arthroplasty of right total knee with placement of antibiotic spacer, PROSTALAC, with tobramycin and tobramycin absorbable beads. SURGEON: Dr. Triston Roman SALES MGR: Dr. Froylan Tirado ANESTHESIA: Spinal. ESTIMATED BLOOD LOSS: 200. COMPLICATIONS: None. INDICATIONS: This is an 84-year-old woman with multiple medical problems and severe morbid obesity who presented earlier this week with an infection in her total knee. Pseudomonas grew out eventually. She also has issues with some wounds in her lower leg on the same side. We recommended surgical treatment in an attempt to try to cure this infection. She and her family wished to go ahead with this and we discussed the nature and the procedure in detail. DESCRIPTION OF PROCEDURE: The patient was taken to the operating room and placed in supine position after spinal anesthesia was induced. Her leg was not amendable to a tourniquet. She had a massive proximal thigh and then a leg that tapered down fairly rapidly. She also had a very short leg and we anticipated not using a tourniquet anyway because of her potential vascular issues in this leg. We prepped and draped in the usual sterile fashion, but we left her ulcers completely covered and sealed, and actually added an additional dressing over them. Once a time out was performed, I then created longitudinal incision over the anterior aspect of the knee. Sharp dissection was carried down through subcutaneous tissue. It became immediately evident just about the patella that there was some purulent drainage coming from inside the knee and we cultured this. I then performed a medial parapatellar arthrotomy per routine, identified flaps on either side and then we began irrigating and removing any inflamed synovium from around the knee. I flexed the knee up and actually we were able to remove the femoral component manually, it was loose. I then removed the polyethylene and the tibial tray also came out very easily. Her bone was extremely soft. It was a consistency of essentially Styrofoam in the metaphyseal bone. I then continued to remove any excess (dictation cut off) and did our best to maintain bone stock. At this point the PROSTALAC components were fitted. I sized them to be a medium and we placed separate batches of cement. I used one batch for the femoral side and two batches for the tibial side. We were able to measure and headlight adjuster the thickness of the tibial side. Once the bony surfaces were prepared and the PROSTALAC femoral component was of the right tackiness, I had also added extra tobramycin 1 gram to the one bag on the femoral component and 1 gram to the two bags on the tibial side. The femoral component was then placed on the end of the femur once the cement was at the appropriate consistency and held in place while this hardened. We also contoured the tibial component with a stem on it and once this hardened removed the mold and had an excellent appearance to the PROSTALAC component. This was inserted on the tibial surface relatively easily and the thickness seemed to be appropriate. She actually had a very stable knee and I put the knee through a range of motion. She was easily put through 0 to 90 degrees of motion and the components were stable and well seated. I then irrigated, placed the antibiotic beads and then repaired the deep layer with interrupted #1 Vicryl suture in running Stratafix suture, subcutaneous with #2-0 Vicryl and the skin with kenia. Sterile dressing was applied and she was taken to recovery in stable condition. There were no known complications. The plan will be routine postop; however, we are going to put a knee immobilizer on for now to allow the wound to stabilize and will also have the wound service continue to help with her lower leg wounds. I spoke with the daughter afterwards. I think we actually can allow her to bear some weight on this leg for transfers. The portfolio assistant was instrumental in holding retractors, assisting in mixing the cement, assisting making the mold, assisting in removing the components, and assisting in wound closure.
[2019-10-17] MEDS: NS 0.45% 1,000 ML IV SCH ×2 (11:01→23:32)
[2019-10-17 14:00] VITALS: BP 138/53
[2019-10-17 20:57] VITALS: BP 138/52
[2019-10-17] MEDS: FLUTICASONE PROP 0.05% NASAL SPRAY 16 GM (FLONASE) SCH (21:01)
[2019-10-18 05:50] VITALS: BP 136/54
[2019-10-18] MEDS: LEVOTHYROXINE 50MCG TABLET (0.05MG) PO SCH (05:50)
[2019-10-18] MEDS: PIPERACILLIN/TAZOBACTAM SOD 2.25 GM in D5W MINI-BAG PLUS 50 ML IV SCH (05:50)
[2019-10-18 06:35] LABS: HEMATOCRIT 21.7 % (36.0-47.0); HEMOGLOBIN 7.1 g/dl (12.0-15.5); MEAN CORPUSCULAR HGB CONC 32.7 g/dl (32.0-36.5); MEAN CORPUSCULAR VOLUME 88.6 fl (80.0-96.0); PLATELET COUNT, AUTOMATED 498 10^3/uL (150-450); RED BLOOD COUNT 2.45 10^6/uL (4.00-5.40); WHITE BLOOD COUNT 17.3 10^3/uL (4.0-10.0)
[2019-10-18 07:06] LABS: ALBUMIN 1.9 GM/DL (3.2-5.2); BILIRUBIN,TOTAL 0.7 MG/DL (0.2-1.0); CALCIUM LEVEL 8.3 MG/DL (8.8-10.2); CREATININE FOR GFR 2.2 MG/DL (0.55-1.30); GLOMERULAR FILTRATION RATE 22.5 (>32); POTASSIUM SERUM 3.8 MEQ/L (3.5-5.1); TOTAL PROTEIN 5.8 GM/DL (6.4-8.2)
[2019-10-18] MEDS ORDERED: PERC5TAB12 PO (08:02)
[2019-10-18] MEDS ORDERED: XARE10TA PO (08:09)
[2019-10-18] MEDS: MULTIVITAMINS/MINERALS THERAP 1 TAB PO SCH (08:41)
[2019-10-18] MEDS: MIRALAX *UNIT DOSE* 17GM PACKET PO SCH (08:41)
[2019-10-18] MEDS: TORSEMIDE 20 MG TAB PO SCH (08:42)
[2019-10-18] MEDS: LACTOBACILLUS ACIDOPHILUS CAP (BACID) PO SCH (08:42)
[2019-10-18] MEDS: DOCUSATE SODIUM 100 MG CAP PO SCH (08:42)
[2019-10-18] MEDS: DONEPEZIL 5 MG TAB PO SCH (08:42)
[2019-10-18] MEDS: MOM 30ML SUSPENSION UDC PO SCH (08:42)
[2019-10-18] MEDS: MEMANTINE 5MG TABLET (NAMENDA) PO SCH (08:42)
[2019-10-18] MEDS: SPIRONOLACTONE 25 MG TAB PO SCH (08:42)
[2019-10-18] MEDS ORDERED: LEVA1TAB2 PO (08:47)
[2019-10-18] MEDS ORDERED: APIXABAN 2.5 MG TAB (ELIQUIS) PO SCH (09:00)
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
[2019-10-18] MEDS ORDERED: LevoFLOXacin 500 MG TABLET PO ONE (10:30)
[2019-10-18] MEDS ORDERED: ELIQ2.5T PO (10:42)
[2019-10-18] MEDS ORDERED: RIVAROXABAN 10 MG TAB (XARELTO) PO SCH (18:00)
[2019-10-19] MEDS ORDERED: LevoFLOXacin 250 MG TABLET PO SCH (06:00)
== END 2019-10-18 11:00 | DRG 464 ==
LOC: M MS5PR 10:46
PROVIDERS: ADMIT Internal Medicine Nephrology; ATTEND Internal Medicine
PROC: 30233N1 Transfusion of Nonautologous Red Blood Cells into Peripheral Vein, Percutaneous Approach (ICD-10-PCS; 2019-10-12)
PROC: 3E0V33Z Introduction of Anti-inflammatory into Bones, Percutaneous Approach (ICD-10-PCS; 2019-10-15)
PROC: 0SPC0JZ Removal of Synthetic Substitute from Right Knee Joint, Open Approach (ICD-10-PCS; principal; 2019-10-15 15:45)
PROC: 0SHC08Z Insertion of Spacer into Right Knee Joint, Open Approach (ICD-10-PCS; 2019-10-15 15:45)
DX: T84.53XA Infection and inflammatory reaction due to internal right knee prosthesis, initial encounter (principal); I50.42 Chronic combined systolic (congestive) and diastolic (congestive) heart failure; I13.0 Hypertensive heart and chronic kidney disease with heart failure and stage 1 through stage 4 chronic kidney disease, or unspecified chronic kidney disease; L97.818 Non-pressure chronic ulcer of other part of right lower leg with other specified severity; M00.861 Arthritis due to other bacteria, right knee; N17.9 Acute kidney failure, unspecified; Z68.42 Body mass index [BMI] 45.0-49.9, adult; F02.80 Dementia in other diseases classified elsewhere, unspecified severity, without behavioral disturbance, psychotic disturbance, mood disturbance, and anxiety; I70.238 Atherosclerosis of native arteries of right leg with ulceration of other part of lower leg; G47.33 Obstructive sleep apnea (adult) (pediatric); Z66 Do not resuscitate; N18.3 Chronic kidney disease, stage 3 (moderate); B96.5 Pseudomonas (aeruginosa) (mallei) (pseudomallei) as the cause of diseases classified elsewhere; I87.2 Venous insufficiency (chronic) (peripheral); E03.9 Hypothyroidism, unspecified; G30.9 Alzheimer's disease, unspecified; M54.9 Dorsalgia, unspecified; E66.01 Morbid (severe) obesity due to excess calories; Z79.899 Other long term (current) drug therapy; Z96.653 Presence of artificial knee joint, bilateral; Z90.49 Acquired absence of other specified parts of digestive tract; Z87.891 Personal history of nicotine dependence; Y83.1 Surgical operation with implant of artificial internal device as the cause of abnormal reaction of the patient, or of later complication, without mention of misadventure at the time of the procedure

== ENCOUNTER → 2019-10-19 | Outpatient (REF) | payer MEDICARE ==
[~2019-10-19] MED LIST changes: +ACET-897 PO; +ACET1TAB55 PO; +BISA10SU27 PR; +CALCCAP4 PO; +DOXY-350 PO; +ELIQ2.5T PO; +ENEMENE PR; +EQ S0.65; +FLUTISP; +LEVA1TAB2 PO; +LEVO25TA34 PO; +LEVO50TA45 PO; +MELA1TAB9 PO; +MILKSUS3 PO; +MULTCAP PO; +NAME5TAB13 PO; +PERC5TAB12 PO; +POLYOPD OU; +XARE10TA PO
[2019-10-19 07:45] LABS: HEMATOCRIT 22.5 % (36.0-47.0); HEMOGLOBIN 7.3 g/dl (12.0-15.5); MEAN CORPUSCULAR HEMOGLOBIN 29.2 pg (27.0-33.0); MEAN CORPUSCULAR HGB CONC 32.4 g/dl (32.0-36.5); PLATELET COUNT, AUTOMATED 538 10^3/uL (150-450); WHITE BLOOD COUNT 10.9 10^3/uL (4.0-10.0)
== END ==
PROVIDERS: ATTEND Family Medicine
DX: D50.0 Iron deficiency anemia secondary to blood loss (chronic) (principal)

== ENCOUNTER → 2019-10-19 | Outpatient (POV) | payer MEDICARE ==
--- NOTE | 2019-10-20 09:40 | IRCOV ---
[facility] [place] IR Consult Office Visit IR Consult Office Visit DATE: Oct 19, 2019 Tele consult with nurses at [facility]. REASON FOR CONSULTATION/CHIEF COMPLAINT: Right lower extremity wound HISTORY OF PRESENT ILLNESS: 84 year old minimally ambulatory female with Alzheimer dementia, HTN, CHF, obesity, JAMILAH, CKD, and hypothyroidism presented with right pretibial hematoma in early august. Etiology unknown and no reported observed traumatic event at the time. This was evacuated by wound care but the wound was refractory to healing with ongoing tissue necrosis. She then presented with red knee on 10/10 at which time the right knee was aspirated and showed leuckocytosis and pseudomonas on culture. She then underwent removal of her 22 year total right knee arthroplasty hardware, knee washout and replacement with antibiotic spacer on 10/15/19. She remains afebrile past few days and reportedly at baseline mental status. ALLERGIES: Please see below. HOME MEDICATIONS: Please see below. PAST MEDICAL HISTORY: Hypertension. Congestive heart failure. JAMILAH Obesity. Chronic kidney disease stage III. Venous stasis ulcer of the right lower extremity. Alzheimer Dementia Hypothyroidism PAST SURGICAL HISTORY: Tonsillectomy partial hysterectomy carpal tunnel release trigger thumb release hammertoe surgery bunionectomy pilonidal cyst removal hernia repair knee arthroplasty bilateral FAMILY HISTORY: Heart disease SOCIAL HISTORY: former smoker. no alcohol or drugs. REVIEW OF SYSTEMS: Otherwise negative PHYSICAL EXAMINATION: no video available per notes. "10 x 7 cm ulcer on mid tibia with beefy edges and purulent discharge". LABORATORY DATA: 10/19/2019 Hgb 7.3 ( down from 10) HCT 22.5 ( baseline 31) wbc 10.9 plt 538 Na 133 K 3.8 bun 48 Cr 2.2 GFR 22 T bili 0.7 AST 20 ALT 33 ALP 129 Imaging: I reviewed the US report from October 12. Images not available. Patent SFA, popliteal and anterior tibial artery. 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 ASSESSMENT/PLAN: 84 female with multiple comordities, presents with non healing right pre tibial wound status port hematoma evacuation. I will perform a right leg angiogram on her this Friday and intervene as appropriate. Given her history of venous stasis ulcers and dependent edema, I would also like to get a venous reflux study of her right lower extremity, to assess for superficial venous reflux and venous hypertension as contributing factors to her non healing wound. I spent 30 minutes in consultation with the patient. Thank you for this referral. cc Freda CALDWELL Allergies Coded Allergies: No Known Drug Allergies (Verified Allergy, Unknown, 10/12/19) Home Medications Scheduled Acetaminophen (Tylenol Extra Strength), 500 MG PO BID, (Reported) Acetaminophen (Tylenol Extra Strength), 1,000 MG PO QHS, (Reported) Apixaban (Eliquis), 1 TAB PO BID Calcium Carbonate/Vitamin D3 (Calcium 600 + Vit D 400 Softgl), 1 CAP PO DAILY, (Reported) Donepezil HCl (Donepezil HCl), 5 MG PO DAILY, (Reported) Doxycycline Monohydrate (Doxycycline), 100 MG PO BID, (Reported) Fluticasone Propionate (Fluticasone Propionate), 1 SPRAY NA QHS, (Reported) Levofloxacin (Levaquin), 1 TAB PO Q2D Levothyroxine Sodium (Levoxyl), 25 MCG PO 4XWK, (Reported) Levothyroxine Sodium (Levoxyl), 50 MCG PO 3XW, (Reported) Melatonin (Melatonin), 5 MG PO QHS, (Reported) Memantine HCl (Namenda), 5 MG PO BID, (Reported) Multivitamin (Multivitamins), 1 CAP PO DAILY, (Reported) Spironolactone (Spironolactone), 25 MG PO DAILY, (Reported) Torsemide (Torsemide), 40 MG PO BID, (Reported) Scheduled PRN Acetaminophen (Acetaminophen), 650 MG PO Q4H PRN for PAIN OR FEVER, (Reported) Bisacodyl (Bisacodyl), 10 MG MO DAILY PRN for CONSTIPATION, (Reported) Magnesium Hydroxide (Milk of Magnesia), 30 ML PO DAILY PRN for CONSTIPATION, (Reported) Oxycodone HCl/Acetaminophen (Percocet 5-325 mg Tablet), 1 TAB PO Q4H PRN for PAIN Polyvinyl Alcohol (Artificial Tears), 2 DROP OU Q2H PRN for DRY EYES, (Reported) Sodium Chloride (Nasal Pratt), 2 SPRAYS NA Q2H PRN for NASAL DRYNESS, (Reported) Sodium Phosphate,Robeson-Dibasic (Enema), 1 FEMI MO DAILY PRN for CONSTIPATION, (Reported) KAREN DUVALL MD Oct 20, 2019 09:40
== END ==
LOC: M TMIRPOV 10:15
PROVIDERS: ATTEND Radiology Diagnostic Radiology
DX: S81.801D Unspecified open wound, right lower leg, subsequent encounter (principal); G30.8 Other Alzheimer's disease; F02.80 Dementia in other diseases classified elsewhere, unspecified severity, without behavioral disturbance, psychotic disturbance, mood disturbance, and anxiety; I13.0 Hypertensive heart and chronic kidney disease with heart failure and stage 1 through stage 4 chronic kidney disease, or unspecified chronic kidney disease; E66.9 Obesity, unspecified; G47.33 Obstructive sleep apnea (adult) (pediatric); N18.3 Chronic kidney disease, stage 3 (moderate); E03.9 Hypothyroidism, unspecified; I50.9 Heart failure, unspecified; L97.919 Non-pressure chronic ulcer of unspecified part of right lower leg with unspecified severity; R60.0 Localized edema; Z79.899 Other long term (current) drug therapy; Z87.891 Personal history of nicotine dependence; Z96.651 Presence of right artificial knee joint

== ENCOUNTER → 2019-10-20 | Outpatient (REF) | payer MEDICARE ==
[2019-10-20 11:55] LABS: HEMATOCRIT 23.9 % (36.0-47.0); HEMOGLOBIN 7.5 g/dl (12.0-15.5); MEAN CORPUSCULAR HEMOGLOBIN 28.6 pg (27.0-33.0); MEAN CORPUSCULAR HGB CONC 31.4 g/dl (32.0-36.5); MEAN CORPUSCULAR VOLUME 91.2 fl (80.0-96.0); PLATELET COUNT, AUTOMATED 633 10^3/uL (150-450); RED BLOOD COUNT 2.62 10^6/uL (4.00-5.40); WHITE BLOOD COUNT 10.7 10^3/uL (4.0-10.0)
[2019-10-20 12:18] LABS: ALBUMIN 2.2 GM/DL (3.2-5.2); BILIRUBIN,TOTAL 0.7 MG/DL (0.2-1.0); C REACTIVE PROTEIN QUANTITATIV 11.9 MG/DL (0.00-0.30); CALCIUM LEVEL 10.1 MG/DL (8.8-10.2); CREATININE FOR GFR 1.84 MG/DL (0.55-1.30); GLOMERULAR FILTRATION RATE 27.7 (>32); TOTAL PROTEIN 6.4 GM/DL (6.4-8.2)
[2019-10-20 12:41] LABS: ERYTHROCYTE SEDIMENTATION RATE 127 mm/hr (0-30)
== END ==
PROVIDERS: ATTEND Family Medicine
DX: D50.0 Iron deficiency anemia secondary to blood loss (chronic) (principal)

== ENCOUNTER → 2019-10-21 | Outpatient (REF) | payer MEDICARE | LOC: M LAB 08:21 | PROVIDERS: ATTEND Family Medicine | DX: Z11.9 Encounter for screening for infectious and parasitic diseases, unspecified (principal); Z20.89 Contact with and (suspected) exposure to other communicable diseases ==

== ENCOUNTER → 2019-10-22 | Outpatient (REF) | payer MEDICARE ==
[2019-10-22 06:42] LABS: HEMOGLOBIN 8.2 g/dl (12.0-15.5); MEAN CORPUSCULAR HEMOGLOBIN 28.7 pg (27.0-33.0); MEAN CORPUSCULAR HGB CONC 31.5 g/dl (32.0-36.5); MEAN CORPUSCULAR VOLUME 90.9 fl (80.0-96.0); PLATELET COUNT, AUTOMATED 651 10^3/uL (150-450); RED BLOOD COUNT 2.86 10^6/uL (4.00-5.40); WHITE BLOOD COUNT 9.6 10^3/uL (4.0-10.0)
== END ==
PROVIDERS: ATTEND Family Medicine
DX: D64.9 Anemia, unspecified (principal)

== ENCOUNTER → 2019-10-22 | Outpatient (CLI) | payer MEDICARE ==
[~2019-10-22] MED LIST changes: +ISOVUE-300 61% 50ML VIAL As Ordered ONE; +LIDOCAINE 1% MDV 20ML VIAL As Ordered ONE; +MIDAZOLAM INJ 2MG/2ML VIAL (J2250 PER 1MG) As Ordered ONE; +diphenhydrAMINE 50MG/ML VIAL (J1200) As Ordered ONE; +fentaNYL 100 MCG/2 ML INJECTION (J3010) As Ordered ONE
--- NOTE | 2019-10-22 07:40 | IRHP ---
[facility] IR Pre-Procedure H & P General Date of Service: October 22, 2019 Procedure: Same Day Surgery Interval History and Physical I have seen the patient and reviewed last H & P performed within 30 days. There is no significant interval change. History of Present Illness Chief Complaint The patient is a 84-year-old female admitted with a reason for visit of PAD. PRE-PROCEDURE DIAGNOSIS: PAD HEART: normal rate. LUNGS: normal breathing at rest. ASA Classification ASA Classification: III-Severe systemic dis. Mallampati Score: II NPO: Yes Problems with prior sedation: No Obstructive Sleep Apnea: No Plan moderate sedation Allergies Coded Allergies: No Known Drug Allergies (Verified Allergy, Unknown, 10/12/19) Home Medications Scheduled Acetaminophen (Tylenol Extra Strength), 500 MG PO BID, (Reported) Acetaminophen (Tylenol Extra Strength), 1,000 MG PO QHS, (Reported) Apixaban (Eliquis), 1 TAB PO BID Calcium Carbonate/Vitamin D3 (Calcium 600 + Vit D 400 Softgl), 1 CAP PO DAILY, (Reported) Donepezil HCl (Donepezil HCl), 5 MG PO DAILY, (Reported) Doxycycline Monohydrate (Doxycycline), 100 MG PO BID, (Reported) Fluticasone Propionate (Fluticasone Propionate), 1 SPRAY NA QHS, (Reported) Levofloxacin (Levaquin), 1 TAB PO Q2D Levothyroxine Sodium (Levoxyl), 25 MCG PO 4XWK, (Reported) Levothyroxine Sodium (Levoxyl), 50 MCG PO 3XW, (Reported) Melatonin (Melatonin), 5 MG PO QHS, (Reported) Memantine HCl (Namenda), 5 MG PO BID, (Reported) Multivitamin (Multivitamins), 1 CAP PO DAILY, (Reported) Spironolactone (Spironolactone), 25 MG PO DAILY, (Reported) Torsemide (Torsemide), 40 MG PO BID, (Reported) Scheduled PRN Acetaminophen (Acetaminophen), 650 MG PO Q4H PRN for PAIN OR FEVER, (Reported) Bisacodyl (Bisacodyl), 10 MG IA DAILY PRN for CONSTIPATION, (Reported) Magnesium Hydroxide (Milk of Magnesia), 30 ML PO DAILY PRN for CONSTIPATION, (Reported) Oxycodone HCl/Acetaminophen (Percocet 5-325 mg Tablet), 1 TAB PO Q4H PRN for PAIN Polyvinyl Alcohol (Artificial Tears), 2 DROP OU Q2H PRN for DRY EYES, (Reported) Sodium Chloride (Nasal Maybell), 2 SPRAYS NA Q2H PRN for NASAL DRYNESS, (Reported) Sodium Phosphate,Pope-Dibasic (Enema), 1 FEMI IA DAILY PRN for CONSTIPATION, (Reported) VS, I&O, 24H, Fishbone Vital Signs/I&O Vital Signs Date Time Temp Pulse Resp B/P (MAP) Pulse Ox O2 Delivery O2 Flow Rate FiO2 10/22/19 06:55 98.7 79 18 98 Room Air KAREN DUVALL MD October 22, 2019 07:40
--- NOTE | 2019-10-22 10:01 | POST-OPPD ---
Postoperative Procedure Note Date Of Procedure: October 22, 2019 Time Of Procedure: 09:59 PREOPERATIVE DIAGNOSIS: non healing wound POSTOPERATIVE DIAGNOSIS: same FINDINGS: right leg below knee arterial disease PROCEDURE: right AT and PT angioplasty. see full report under imaging tab SURGEON: ambar ANESTHESIA: mod sed ESTIMATED BLOOD LOSS: < 5 ml COMPLICATIONS: none POSTOPERATIVE CONDITION: stable KAREN DUVALL MD October 22, 2019 10:00
--- NOTE | 2019-10-22 10:30 | REP ---
IR Right leg angiogram. IR Selective right iliac artery catheterization. IR Selective right common femoral artery catheterization. IR Ultrasound guided left common femoral artery access. IR Sub selective right anterior tibial artery catheterization and angiography. IR Sub selective right posterior tibial artery catheterization. IR Right anterior tibial artery angioplasty. IR Right posterior tibial artery angioplasty. IR Moderate sedation. Clinical Information: Non healing right lower extremity ulcer. 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 The patient was positioned in the supine position on the angiographic table. The site was prepped and draped in the usual sterile fashion.Moderate sedation was performed by the physician including the presence of an independent trained observer who assisted in monitoring the patient's level of consciousness and physiological status. Following the administration of Fentanyl and Versed, the physician spent 90 minutes of continuous [id number] time with the patient. A vise hand radiograph reveals surgical clips in the pelvis. Ultrasound of the left groin demonstrates patent left common femoral artery. The left common femoral artery was accessed with a micropuncture kit under ultrasound guidance. A [employer] wire was advanced into the aorta. The micropuncture sheath was exchanged over the wire for a a 6-[place] vascular sheath. A flush catheter was advanced over the wire and used to catheterize the abdominal aorta. A pelvic arteriogram was performed. This demonstrates unremarkable abdominal bifurcation. Patent bilateral common iliac, internal iliac and external iliac arteries. A Glidewire was advanced through the flush catheter and under fluoroscopy guidance was used to gain up and over access into the right common iliac artery. The flush catheter was exchanged over the wire for a glide cath. The glide cath in conjunction with a Glidewire was used to catheterize the right external iliac artery. A right leg angiogram was performed. This demonstrates patent right common femoral, superficial femoral and profunda femoris. Angiogram further down the right leg was performed and this demonstrates patent mid and distal superficial femoral artery and patent popliteal artery. A below-knee runoff arteriogram was performed and this demonstrates patent anterior tibial, posterior tibial and peroneal artery. Multifocal greater than 50% stenosis within the mid and distal anterior tibial artery and areas of 75% stenosis in the distal anterior tibial artery closer to the ankle. Patent dorsalis pedis. Multifocal greater than 50% stenosis in the posterior tibial artery. Patent posterior tibial artery coursing into the foot supplying calcaneal and plantar branches. Microvascular disease in the foot. The catheter in conjunction with a wire was used to sub selectively catheterize the anterior tibial artery. The catheter was removed over the wire. A 3 x 220 mm christoph angioplasty balloon was advanced over the wire under fluoroscopy guidance into the mid right anterior tibial artery. Injection of contrast confirmed location within the anterior tibial artery. Angioplasty of the proximal and mid right anterior tibial artery was performed. Heparin was administered. The balloon was deflated and repositioned into the mid and distal right anterior tibial artery. Further angioplasty was performed. The balloon was deflated and removed over the wire. The catheter in conjunction with a wire was used to sub selectively catheterize the right posterior tibial artery, under fluoroscopy guidance. Injection of contrast confirmed location in the posterior tibial artery. The catheter was removed over the wire. A 3 x 220 mm christoph angioplasty balloon was advanced over the wire under fluoroscopy guidance into the proximal right posterior tibial artery. Angioplasty of the proximal right posterior tibial artery was performed. Balloon was deflated and repositioned under fluoroscopy guidance into the mid and distal posterior tibial artery. Angioplasty of the mid and distal right posterior tibial artery was performed. The balloon was deflated and catheter retracted to the popliteal artery. A post angioplasty follow-up arteriogram was performed from the popliteal artery and this demonstrates improved flow in the anterior tibial and posterior tibial artery. Peroneal artery remains intact. A runoff arteriogram to the right foot was performed and this demonstrates improved flow in the mid and distal anterior tibial artery coursing into dorsalis pedis. The >75 % short segment stenosis in the distal anterior tibial artery close to the ankle, is now resolved. Improved flow and less multifocal stenosis within the mid and distal posterior tibial artery. Improved flow in the peroneal artery. No distal vessel cutoff, spasm, extravasation or emboli. The catheter was removed. A 6-[place] [employer] device was used to close the groin arteriotomy and the sheath was removed. Hemostasis achieved. A sterile dressing was applied to the site. Patient tolerated the procedure well and was transferred to PRU in stable condition. Complications: None. Estimated blood loss: Less than 5 ml. Impression: 1. Right leg angiography demonstrates patent right external iliac, common femoral, superficial femoral, profunda femoris and popliteal artery. 2. Multifocal greater than 50% stenosis within the proximal and distal anterior tibial artery and multifocal stenosis within the posterior tibial artery. Patent peroneal artery. 3. Successful angioplasty of the anterior tibial artery with improved flow to the right foot. 4. Successful angioplasty of the posterior tibial artery with improved flow to the right foot. 5. Patient to follow up in IR clinic in 1 month. Thank you for this referral. Cc Freda Adrian. PA Electronically Signed by Karon Gabriel MD 10/22/2019 10:28 A
[2019-10-22 13:40] VITALS: BP 165/74
== END ==
LOC: M IRPRO 07:10
PROVIDERS: ATTEND Radiology Diagnostic Radiology
DX: I70.239 Atherosclerosis of native arteries of right leg with ulceration of unspecified site (principal); Z79.899 Other long term (current) drug therapy; D64.9 Anemia, unspecified
CPT/HCPCS: 37228; 37232; 75710; 85027; 99152; 99153; C1725; C1729; C1760; C1769; C1887; C1894; J1200; J1644; J2250; J3010; Q9967

== ENCOUNTER → 2019-10-26 | Outpatient (REF) | payer MEDICARE ==
[~2019-10-26] MED LIST changes: -ISOVUE-300 61% 50ML VIAL As Ordered ONE; -LIDOCAINE 1% MDV 20ML VIAL As Ordered ONE; -MIDAZOLAM INJ 2MG/2ML VIAL (J2250 PER 1MG) As Ordered ONE; -diphenhydrAMINE 50MG/ML VIAL (J1200) As Ordered ONE; -fentaNYL 100 MCG/2 ML INJECTION (J3010) As Ordered ONE
[2019-10-26 11:09] LABS: HEMATOCRIT 27.8 % (36.0-47.0); HEMOGLOBIN 8.7 g/dl (12.0-15.5); MEAN CORPUSCULAR HEMOGLOBIN 28.6 pg (27.0-33.0); MEAN CORPUSCULAR HGB CONC 31.3 g/dl (32.0-36.5); MEAN CORPUSCULAR VOLUME 91.4 fl (80.0-96.0); PLATELET COUNT, AUTOMATED 563 10^3/uL (150-450); RED BLOOD COUNT 3.04 10^6/uL (4.00-5.40); WHITE BLOOD COUNT 8.9 10^3/uL (4.0-10.0)
== END ==
PROVIDERS: ATTEND Family Medicine
DX: D64.9 Anemia, unspecified (principal)

== ENCOUNTER → 2019-10-29 | Outpatient (REF) | payer MEDICARE ==
[2019-10-29 11:08] LABS: HEMATOCRIT 31.9 % (36.0-47.0); MEAN CORPUSCULAR HEMOGLOBIN 29.3 pg (27.0-33.0); MEAN CORPUSCULAR HGB CONC 31.3 g/dl (32.0-36.5); MEAN CORPUSCULAR VOLUME 93.5 fl (80.0-96.0); PLATELET COUNT, AUTOMATED 485 10^3/uL (150-450); RED BLOOD COUNT 3.41 10^6/uL (4.00-5.40); WHITE BLOOD COUNT 8.5 10^3/uL (4.0-10.0)
== END ==
PROVIDERS: ATTEND Nurse Practitioner Adult Health
DX: D64.9 Anemia, unspecified (principal)

== ENCOUNTER → 2019-11-02 | Outpatient (REF) | payer MEDICARE ==
[2019-11-02 09:18] LABS: HEMATOCRIT 31.2 % (36.0-47.0); HEMOGLOBIN 9.9 g/dl (12.0-15.5); MEAN CORPUSCULAR HEMOGLOBIN 28.9 pg (27.0-33.0); MEAN CORPUSCULAR HGB CONC 31.7 g/dl (32.0-36.5); MEAN CORPUSCULAR VOLUME 91.2 fl (80.0-96.0); PLATELET COUNT, AUTOMATED 364 10^3/uL (150-450); RED BLOOD COUNT 3.42 10^6/uL (4.00-5.40); WHITE BLOOD COUNT 7.6 10^3/uL (4.0-10.0)
== END ==
PROVIDERS: ATTEND Nurse Practitioner Adult Health
DX: D64.9 Anemia, unspecified (principal)

== ENCOUNTER → 2019-11-09 | Outpatient (REF) | PROVIDERS: ATTEND Internal Medicine | DX: Z03.818 Encounter for observation for suspected exposure to other biological agents ruled out (principal) ==

== ENCOUNTER → 2019-11-22 | Outpatient (CLI) | payer MEDICARE ==
--- NOTE | 2019-11-22 10:48 | REP ---
RIGHT LOWER EXTREMITY DUPLEX DOPPLER VENOUS ULTRASOUND WITH EVALUATION FOR VENOUS REFLUX: Real-time compression and duplex Doppler interrogation of the right lower extremity deep vein system is performed. Right common femoral, superficial femoral and popliteal veins are fully compressible with transducer pressure and demonstrate normal spontaneous and phasic flow without evidence of deep venous thrombosis. Evaluation for venous reflux demonstrates minimal reflux in the less saphenous vein with duration of 0.7 seconds, AP diameter is 5 mm. There is reflux in the central aspect of the greater saphenous vein near the saphenofemoral junction with a duration of 0.6 seconds, AP diameter is 7 mm. There is no reflux more peripherally within the greater saphenous vein, which measures 6 mm in the mid thigh and at the level of the knee. There is no reflux in the superficial femoral or popliteal veins, there is mild reflux in the common femoral vein. There is no evidence of an anterior greater saphenous vein. Electronically Signed by Seferino Bowman MD 11/23/2019 12:58 P
== END ==
LOC: M RAD 08:49
PROVIDERS: ATTEND Radiology Diagnostic Radiology
DX: I87.393 Chronic venous hypertension (idiopathic) with other complications of bilateral lower extremity (principal); I73.9 Peripheral vascular disease, unspecified

== ENCOUNTER → 2019-11-23 | Outpatient (POV) | payer MEDICARE ==
--- NOTE | 2019-11-24 11:27 | IRPN ---
[facility] IR Progress Note IR Progress Note DATE: Nov 23, 2019 Consent was given by the patient for this telephone call. Length of call was 5 minutes. FOLLOW-UP: status post right leg angiogram and AT and PT angioplasty for non healing wounds. Patient doing well. No pain or swelling reported at access site. ON EXAMINATION: No video on patient side. IMPRESSION: Status post right leg angiogram, AT and PT angioplasty, no new complaints. Continue follow up with wound care. Thank you for this referral Allergies Coded Allergies: No Known Drug Allergies (Verified Allergy, Unknown, 10/12/19) KAREN DUVALL MD Nov 24, 2019 11:27
== END ==
LOC: M IRPOV 09:00
PROVIDERS: ATTEND Radiology Diagnostic Radiology
DX: Z48.812 Encounter for surgical aftercare following surgery on the circulatory system (principal)

== ENCOUNTER → 2019-12-07 | Outpatient (REF) | payer MEDICARE ==
[2019-12-07 11:37] LABS: HEMATOCRIT 34.8 % (36.0-47.0); HEMOGLOBIN 10.7 g/dl (12.0-15.5); MEAN CORPUSCULAR HEMOGLOBIN 27.9 pg (27.0-33.0); MEAN CORPUSCULAR HGB CONC 30.7 g/dl (32.0-36.5); MEAN CORPUSCULAR VOLUME 90.9 fl (80.0-96.0); PLATELET COUNT, AUTOMATED 298 10^3/uL (150-450); RED BLOOD COUNT 3.83 10^6/uL (4.00-5.40); WHITE BLOOD COUNT 6.2 10^3/uL (4.0-10.0)
[2019-12-07 12:45] LABS: C REACTIVE PROTEIN QUANTITATIV 1.08 MG/DL (0.00-0.30); CALCIUM LEVEL 8.5 MG/DL (8.8-10.2); CREATININE FOR GFR 1.63 MG/DL (0.55-1.30); GLOMERULAR FILTRATION RATE 31.8 (>32); POTASSIUM SERUM 3.7 MEQ/L (3.5-5.1)
== END ==
PROVIDERS: ATTEND Family Medicine
DX: D64.9 Anemia, unspecified (principal)

== ENCOUNTER → 2020-03-06 | Outpatient (REF) | payer MEDICARE, OTHER ==
[2020-03-06 11:05] LABS: HEMATOCRIT 32.6 % (36.0-47.0); HEMOGLOBIN 10.2 g/dl (12.0-15.5); MEAN CORPUSCULAR HEMOGLOBIN 28.4 pg (27.0-33.0); MEAN CORPUSCULAR HGB CONC 31.3 g/dl (32.0-36.5); MEAN CORPUSCULAR VOLUME 90.8 fl (80.0-96.0); PLATELET COUNT, AUTOMATED 229 10^3/uL (150-450); RED BLOOD COUNT 3.59 10^6/uL (4.00-5.40); WHITE BLOOD COUNT 3.8 10^3/uL (4.0-10.0)
[2020-03-06 11:43] LABS: CALCIUM LEVEL 8.8 MG/DL (8.8-10.2); CREATININE FOR GFR 1.65 MG/DL (0.55-1.30); GLOMERULAR FILTRATION RATE 31.3 (>32); POTASSIUM SERUM 3.8 MEQ/L (3.5-5.1); THYROID STIMULATING HORMONE 2.57 uIU/ML (0.358-3.740)
== END ==
PROVIDERS: ATTEND Family Medicine
DX: I50.9 Heart failure, unspecified (principal)

== ENCOUNTER → 2020-05-04 | Outpatient (REF) | PROVIDERS: ATTEND Internal Medicine | DX: Z20.828 Contact with and (suspected) exposure to other viral communicable diseases (principal) ==

== ENCOUNTER → 2020-05-11 | Outpatient (REF) | payer MEDICARE, MEDICAID | LOC: EDSTATUS 06-20 07:02 | PROVIDERS: ATTEND Internal Medicine | DX: Z20.828 Contact with and (suspected) exposure to other viral communicable diseases (principal) ==

== ENCOUNTER → 2020-05-17 | Outpatient (REF) | payer MEDICARE, MEDICAID | PROVIDERS: ATTEND Internal Medicine | DX: Z20.828 Contact with and (suspected) exposure to other viral communicable diseases (principal) ==

== ENCOUNTER → 2020-05-26 | Outpatient (REF) | payer MEDICARE, OTHER, MEDICAID ==
[2020-05-26 10:47] LABS: HEMATOCRIT 44.2 % (36.0-47.0); HEMOGLOBIN 13.8 g/dl (12.0-15.5); MEAN CORPUSCULAR HEMOGLOBIN 29.2 pg (27.0-33.0); MEAN CORPUSCULAR HGB CONC 31.2 g/dl (32.0-36.5); MEAN CORPUSCULAR VOLUME 93.6 fl (80.0-96.0); PLATELET COUNT, AUTOMATED 275 10^3/uL (150-450); RED BLOOD COUNT 4.72 10^6/uL (4.00-5.40)
[2020-05-26 11:19] LABS: CALCIUM LEVEL 9.3 MG/DL (8.8-10.2); CREATININE FOR GFR 1.79 MG/DL (0.55-1.30); GLOMERULAR FILTRATION RATE 28.5 (>32); POTASSIUM SERUM 3.8 MEQ/L (3.5-5.1)
--- NOTE | 2020-05-26 16:02 | REPPI ---
INDICATION: ROOM S159-1 [id number]. COMPARISON: 10/12/2019 TECHNIQUE: The technique utilized in obtaining the radiograph has magnified the cardiac silhouette and attenuated the interstitial markings. FINDINGS: There is cardiomegaly accentuated by technique. The interstitial markings are increased and accentuated by technique. No patchy opacities or pleural effusions have developed. There are multiple pulmonary nodules status quo. There is no significant change in appearance of the osseous structures. IMPRESSION: Stable appearing chronic changes as described above. <Electronically signed by Steven Dumont > 05/26/20 [id number]
--- NOTE | 2020-05-26 16:04 | REPPI ---
INDICATION: ROOM [id number]. COMPARISON: None. FINDINGS: KUB shows the intestinal gas pattern to be nonspecific. The organ silhouettes insofar as delineated are unremarkable. There is no evidence of free intraperitoneal air. The examination is markedly limited due to the patient's body habitus and portable technique. A small amount of free intraperitoneal air cannot be ruled out. Not all of the abdomen was included on this portable exam. IMPRESSION: Markedly limited negative exam. Consider CT. <Electronically signed by Steven Dumont > 05/26/20 1600
== END ==
PROVIDERS: ATTEND Nurse Practitioner Adult Health
DX: I51.7 Cardiomegaly (principal); R91.8 Other nonspecific abnormal finding of lung field

== ENCOUNTER → 2020-05-27 | Outpatient (REF) | payer MEDICARE, MEDICAID | PROVIDERS: ATTEND Nurse Practitioner Adult Health | DX: R19.5 Other fecal abnormalities (principal) ==

== ENCOUNTER → 2020-05-28 | Outpatient (REF) | payer MEDICARE, MEDICAID | PROVIDERS: ATTEND Nurse Practitioner Adult Health | DX: R19.7 Diarrhea, unspecified (principal) ==

== ENCOUNTER → 2020-06-04 | Outpatient (REF) | payer MEDICARE, MEDICAID | PROVIDERS: ATTEND Internal Medicine | DX: Z20.828 Contact with and (suspected) exposure to other viral communicable diseases (principal) ==

== ENCOUNTER → 2020-06-08 | Outpatient (REF) | payer MEDICARE, MEDICAID | PROVIDERS: ATTEND Internal Medicine | DX: Z20.828 Contact with and (suspected) exposure to other viral communicable diseases (principal) ==

== ENCOUNTER → 2020-06-14 | Outpatient (REF) | payer MEDICARE, MEDICAID | PROVIDERS: ATTEND Internal Medicine | DX: Z20.828 Contact with and (suspected) exposure to other viral communicable diseases (principal) ==

== ENCOUNTER → 2020-06-19 | Outpatient (REF) | payer MEDICARE, MEDICAID ==
[2020-06-19 14:37] LABS: RSV AMPLIFICATION NEGATIVE (NEGATIVE)
== END ==
PROVIDERS: ATTEND Internal Medicine
DX: Z20.828 Contact with and (suspected) exposure to other viral communicable diseases (principal)

== ENCOUNTER → 2020-06-26 | Outpatient (REF) | payer MEDICARE, MEDICAID | PROVIDERS: ATTEND Internal Medicine | DX: Z20.828 Contact with and (suspected) exposure to other viral communicable diseases (principal) ==

== ENCOUNTER → 2020-06-30 | Outpatient (REF) | payer MEDICARE, MEDICAID | PROVIDERS: ATTEND Internal Medicine | DX: Z20.828 Contact with and (suspected) exposure to other viral communicable diseases (principal) ==

== ENCOUNTER → 2020-07-13 | Outpatient (REF) | payer MEDICARE, MEDICAID ==
[2020-07-13 14:01] LABS: INFLUENZA A AMPLIFICATION NEGATIVE (NEGATIVE); INFLUENZA B AMPLIFICATION NEGATIVE (NEGATIVE)
== END ==
PROVIDERS: ATTEND Nurse Practitioner Adult Health
DX: Z11.59 Encounter for screening for other viral diseases (principal)

== ENCOUNTER → 2020-07-31 | Outpatient (REF) | payer MEDICARE, MEDICAID ==
[2020-07-31 09:41] LABS: HEMATOCRIT 41.3 % (36.0-47.0); MEAN CORPUSCULAR HEMOGLOBIN 29.1 pg (27.0-33.0); MEAN CORPUSCULAR HGB CONC 31.5 g/dl (32.0-36.5); MEAN CORPUSCULAR VOLUME 92.4 fl (80.0-96.0); PLATELET COUNT, AUTOMATED 287 10^3/uL (150-450); RED BLOOD COUNT 4.47 10^6/uL (4.00-5.40); WHITE BLOOD COUNT 4.8 10^3/uL (4.0-10.0)
[2020-07-31 10:17] LABS: CALCIUM LEVEL 9.7 MG/DL (8.8-10.2); CREATININE FOR GFR 1.44 MG/DL (0.55-1.30); GLOMERULAR FILTRATION RATE 36.7 (>32); POTASSIUM SERUM 3.9 MEQ/L (3.5-5.1); THYROID STIMULATING HORMONE 3.83 uIU/ML (0.358-3.740)
== END ==
PROVIDERS: ATTEND Nurse Practitioner Adult Health
DX: I50.9 Heart failure, unspecified (principal)

== ENCOUNTER → 2020-09-22 | Outpatient (REF) | payer MEDICARE, MEDICAID | PROVIDERS: ATTEND Family Medicine | DX: R19.5 Other fecal abnormalities (principal) ==

== ENCOUNTER → 2020-09-29 | Outpatient (REF) | payer MEDICARE, MEDICAID ==
[2020-09-29 19:36] LABS: RSV AMPLIFICATION NEGATIVE (NEGATIVE)
== END ==
PROVIDERS: ATTEND Internal Medicine
DX: Z11.52 Encounter for screening for COVID-19 (principal)

== ENCOUNTER → 2020-12-05 | Outpatient (REF) | payer MEDICARE, MEDICAID ==
[2020-12-05 11:27] LABS: CALCIUM LEVEL 9.6 MG/DL (8.8-10.2); CREATININE FOR GFR 1.42 MG/DL (0.55-1.30); GLOMERULAR FILTRATION RATE 37.3 (>32); POTASSIUM SERUM 4.1 MEQ/L (3.5-5.1)
== END ==
PROVIDERS: ATTEND Nurse Practitioner Adult Health
DX: I50.9 Heart failure, unspecified (principal)

== ENCOUNTER → 2021-01-22 | Outpatient (REF) | payer MEDICARE, MEDICAID ==
[2021-01-22 12:31] LABS: HEMATOCRIT 41.1 % (36.0-47.0); HEMOGLOBIN 12.9 g/dl (12.0-15.5); MEAN CORPUSCULAR HEMOGLOBIN 29.6 pg (27.0-33.0); MEAN CORPUSCULAR HGB CONC 31.4 g/dl (32.0-36.5); MEAN CORPUSCULAR VOLUME 94.3 fl (80.0-96.0); PLATELET COUNT, AUTOMATED 265 10^3/uL (150-450); RED BLOOD COUNT 4.36 10^6/uL (4.00-5.40); WHITE BLOOD COUNT 4.3 10^3/uL (4.0-10.0)
[2021-01-22 13:06] LABS: CREATININE FOR GFR 1.47 MG/DL (0.55-1.30); GLOMERULAR FILTRATION RATE 35.8 (>32); POTASSIUM SERUM 3.8 MEQ/L (3.5-5.1); THYROID STIMULATING HORMONE 3.25 uIU/ML (0.358-3.740)
== END ==
PROVIDERS: ATTEND Nurse Practitioner Adult Health
DX: I50.9 Heart failure, unspecified (principal); E03.9 Hypothyroidism, unspecified

== ENCOUNTER → 2021-01-31 | Outpatient (REF) | payer MEDICARE, MEDICAID ==
[2021-01-31 12:32] LABS: HEMATOCRIT 38.9 % (36.0-47.0); HEMOGLOBIN 12.3 g/dl (12.0-15.5); MEAN CORPUSCULAR HEMOGLOBIN 29.3 pg (27.0-33.0); MEAN CORPUSCULAR HGB CONC 31.6 g/dl (32.0-36.5); MEAN CORPUSCULAR VOLUME 92.6 fl (80.0-96.0); PLATELET COUNT, AUTOMATED 266 10^3/uL (150-450); WHITE BLOOD COUNT 5.4 10^3/uL (4.0-10.0)
[2021-01-31 13:21] LABS: CALCIUM LEVEL 9.6 MG/DL (8.8-10.2); CREATININE FOR GFR 1.27 MG/DL (0.55-1.30); GLOMERULAR FILTRATION RATE 42.3 (>32); PHOSPHORUS LEVEL 3.4 MG/DL (2.5-4.9); POTASSIUM SERUM 3.9 MEQ/L (3.5-5.1); PTH INTACT 133.3 PG/ML (18.5-88.0); THYROID STIMULATING HORMONE 3.59 uIU/ML (0.358-3.740)
[2021-01-31 13:34] LABS: TOTAL 25(OH) VITAMIN D 25.1 NG/ML (30.0-100.0)
== END ==
PROVIDERS: ATTEND Family Medicine
DX: I50.9 Heart failure, unspecified (principal); Z79.899 Other long term (current) drug therapy

== ENCOUNTER → 2021-02-06 | Outpatient (REF) | payer MEDICARE, MEDICAID | PROVIDERS: ATTEND Nurse Practitioner Adult Health | DX: I50.9 Heart failure, unspecified (principal) ==

== ENCOUNTER → 2021-02-07 | Outpatient (REF) | payer MEDICARE, MEDICAID ==
[2021-02-07 16:04] LABS: CALCIUM LEVEL 8.6 MG/DL (8.8-10.2); CREATININE FOR GFR 1.54 MG/DL (0.55-1.30); GLOMERULAR FILTRATION RATE 33.8 (>32); PHOSPHORUS LEVEL 3.8 MG/DL (2.5-4.9)
[2021-02-07 16:11] LABS: TOTAL 25(OH) VITAMIN D 21.2 NG/ML (30.0-100.0)
== END ==
PROVIDERS: ATTEND Family Medicine
DX: I50.9 Heart failure, unspecified (principal); Z79.899 Other long term (current) drug therapy

== ENCOUNTER → 2021-07-23 | Outpatient (REF) | payer MEDICARE, MEDICAID | PROVIDERS: ATTEND Nurse Practitioner Primary Care | DX: N18.9 Chronic kidney disease, unspecified (principal); Z53.9 Procedure and treatment not carried out, unspecified reason ==

== ENCOUNTER → 2021-07-25 | Outpatient (REF) | payer MEDICARE, MEDICAID ==
[2021-07-25 13:10] LABS: BASO % 0.7 % (0.0-1.0); EOS # 0.1 10^3/uL (0.0-0.5); EOS % 1.5 % (0.0-3.0); HEMATOCRIT 40.9 % (36.0-47.0); HEMOGLOBIN 13.1 g/dl (12.0-15.5); LYMPH # 1.3 10^3/uL (1.5-5.0); LYMPH % 23.1 % (24.0-44.0); MEAN CORPUSCULAR HEMOGLOBIN 30.3 pg (27.0-33.0); MEAN CORPUSCULAR VOLUME 94.7 fl (80.0-96.0); MONO # 0.4 10^3/uL (0.0-0.8); MONO % 8.1 % (2.0-8.0); NEUTROPHILS # 3.6 10^3/uL (1.5-8.5); NEUTROPHILS % 66.2 % (36.0-66.0); PLATELET COUNT, AUTOMATED 300 10^3/uL (150-450); RED BLOOD COUNT 4.32 10^6/uL (4.00-5.40); WHITE BLOOD COUNT 5.4 10^3/uL (4.0-10.0)
[2021-07-25 14:30] LABS: CALCIUM LEVEL 9.2 MG/DL (8.8-10.2); CREATININE FOR GFR 1.58 MG/DL (0.55-1.30); GLOMERULAR FILTRATION RATE 32.9 (>32); PHOSPHORUS LEVEL 3.4 MG/DL (2.5-4.9); POTASSIUM SERUM 4.1 MEQ/L (3.5-5.1); PTH INTACT 279.1 PG/ML (18.5-88.0); THYROID STIMULATING HORMONE 3.44 uIU/ML (0.358-3.740)
== END ==
PROVIDERS: ATTEND Internal Medicine
DX: I13.0 Hypertensive heart and chronic kidney disease with heart failure and stage 1 through stage 4 chronic kidney disease, or unspecified chronic kidney disease (principal); I50.9 Heart failure, unspecified; N18.9 Chronic kidney disease, unspecified

== ENCOUNTER → 2021-07-26 | Outpatient (REF) | payer MEDICARE, MEDICAID ==
[2021-07-26 12:36] LABS: TOTAL PROTEIN 7.5 GM/DL (6.4-8.2)
[2021-07-27 11:39] LABS: ALBUMIN 3.96 GM/DL (3.29-5.55); ALBUMIN % 52.8 % (55.8-66.1); ALPHA-1-GLOBULIN % 4.8 % (2.9-4.9); ALPHA-1-GLOBULINS 0.36 GM/DL (0.17-0.41); ALPHA-2-GLOBULINS 1.07 GM/DL (0.42-0.99); ALPHA-2-GLOBULINS % 14.3 % (7.1-11.8); BETA-1-GLOBULINS 0.44 GM/DL (0.28-0.60); BETA-1-GLOBULINS % 5.8 % (4.7-7.2); BETA-2-GLOBULINS 0.41 GM/DL (0.19-0.55); BETA-2-GLOBULINS % 5.4 % (3.2-6.5); GAMMA GLOBULIN % 16.9 % (11.1-18.8); GAMMA GLOBULINS 1.27 GM/DL (0.65-1.58)
== END ==
PROVIDERS: ATTEND Internal Medicine
DX: N18.9 Chronic kidney disease, unspecified (principal)

== ENCOUNTER → 2021-07-26 | Outpatient (REF) | payer MEDICARE, MEDICAID | PROVIDERS: ATTEND Internal Medicine | DX: E21.5 Disorder of parathyroid gland, unspecified (principal); Z53.9 Procedure and treatment not carried out, unspecified reason ==

== ENCOUNTER → 2021-08-09 | Outpatient (REF) | payer MEDICARE, MEDICAID ==
[~2021-08-09] MED LIST changes: +CALC1CAP31 PO; +ERGO500029 PO; +SENN1TAB94 PO; +TORS100T PO; +TORS10TA3 PO
== END ==
PROVIDERS: ATTEND Internal Medicine
DX: I48.91 Unspecified atrial fibrillation (principal); Z79.01 Long term (current) use of anticoagulants

== ENCOUNTER → 2021-08-11 | Outpatient (REF) | payer MEDICARE, MEDICAID | PROVIDERS: ATTEND Internal Medicine | DX: Z79.01 Long term (current) use of anticoagulants (principal); I48.91 Unspecified atrial fibrillation ==

== ENCOUNTER → 2021-08-12 | Outpatient (REF) | payer MEDICARE, MEDICAID | PROVIDERS: ATTEND Internal Medicine | DX: Z79.01 Long term (current) use of anticoagulants (principal); I48.91 Unspecified atrial fibrillation ==

== ENCOUNTER → 2021-09-19 | Outpatient (REF) | payer MEDICARE, MEDICAID | PROVIDERS: ATTEND Internal Medicine | DX: D47.2 Monoclonal gammopathy (principal) ==

== ENCOUNTER → 2021-09-21 | Outpatient (CLI) | payer MEDICARE, MEDICAID | LOC: M RAD 14:27 | PROVIDERS: ATTEND Internal Medicine Medical Oncology | DX: R79.89 Other specified abnormal findings of blood chemistry (principal); M15.9 Polyosteoarthritis, unspecified; M85.89 Other specified disorders of bone density and structure, multiple sites ==

== ENCOUNTER → 2021-09-27 | Outpatient (REF) | payer MEDICARE, MEDICAID | PROVIDERS: ATTEND Internal Medicine | DX: R05.9 Cough, unspecified (principal); R06.02 Shortness of breath; J84.9 Interstitial pulmonary disease, unspecified; I51.7 Cardiomegaly; I70.0 Atherosclerosis of aorta ==

== ENCOUNTER → 2021-09-27 | Outpatient (CLI) | payer MEDICARE, MEDICAID | PROVIDERS: ATTEND Internal Medicine | DX: R06.02 Shortness of breath (principal); J84.9 Interstitial pulmonary disease, unspecified; I51.7 Cardiomegaly; I70.0 Atherosclerosis of aorta ==

== ENCOUNTER → 2021-12-17 | Outpatient (REF) | payer MEDICARE, MEDICAID ==
[2021-12-17 09:54] LABS: BASO % 0.7 % (0.0-1.0); EOS # 0.1 10^3/uL (0.0-0.5); EOS % 2.2 % (0.0-3.0); HEMATOCRIT 42.2 % (36.0-47.0); HEMOGLOBIN 13.4 g/dl (12.0-15.5); LYMPH # 1.2 10^3/uL (1.5-5.0); LYMPH % 25.8 % (24.0-44.0); MEAN CORPUSCULAR HEMOGLOBIN 29.5 pg (27.0-33.0); MEAN CORPUSCULAR HGB CONC 31.8 g/dl (32.0-36.5); MEAN CORPUSCULAR VOLUME 92.7 fl (80.0-96.0); MONO # 0.4 10^3/uL (0.0-0.8); MONO % 8.4 % (2.0-8.0); NEUTROPHILS # 2.8 10^3/uL (1.5-8.5); NEUTROPHILS % 62.2 % (36.0-66.0); PLATELET COUNT, AUTOMATED 282 10^3/uL (150-450); RED BLOOD COUNT 4.55 10^6/uL (4.00-5.40); WHITE BLOOD COUNT 4.5 10^3/uL (4.0-10.0)
[2021-12-17 10:27] LABS: ALBUMIN 3.4 GM/DL (3.2-5.2); CALCIUM LEVEL 9.7 MG/DL (8.8-10.2); CREATININE FOR GFR 1.54 MG/DL (0.55-1.30); GLOMERULAR FILTRATION RATE 33.8 (>32); PHOSPHORUS LEVEL 3.8 MG/DL (2.5-4.9); POTASSIUM SERUM 3.8 MEQ/L (3.5-5.1)
== END ==
PROVIDERS: ATTEND Internal Medicine
DX: I50.9 Heart failure, unspecified (principal)

== ENCOUNTER → 2021-12-19 | Outpatient (REF) | payer MEDICARE, MEDICAID | PROVIDERS: ATTEND Nurse Practitioner Family | DX: I50.9 Heart failure, unspecified (principal) ==

== ENCOUNTER → 2022-01-30 | Outpatient (REF) | payer MEDICARE, MEDICAID ==
[2022-01-30 10:42] LABS: HEMATOCRIT 39.1 % (36.0-47.0); HEMOGLOBIN 12.5 g/dl (12.0-15.5); MEAN CORPUSCULAR HEMOGLOBIN 28.7 pg (27.0-33.0); MEAN CORPUSCULAR VOLUME 89.9 fl (80.0-96.0); PLATELET COUNT, AUTOMATED 257 10^3/uL (150-450); RED BLOOD COUNT 4.35 10^6/uL (4.00-5.40); WHITE BLOOD COUNT 4.4 10^3/uL (4.0-10.0)
[2022-01-30 11:52] LABS: CALCIUM LEVEL 8.9 MG/DL (8.8-10.2); CREATININE FOR GFR 1.36 MG/DL (0.55-1.30); POTASSIUM SERUM 3.8 MEQ/L (3.5-5.1); THYROID STIMULATING HORMONE 5.41 uIU/ML (0.358-3.740)
== END ==
PROVIDERS: ATTEND Internal Medicine
DX: N18.9 Chronic kidney disease, unspecified (principal); D63.1 Anemia in chronic kidney disease; I50.9 Heart failure, unspecified

== ENCOUNTER → 2022-02-27 | Outpatient (REF) | payer MEDICARE, MEDICAID | PROVIDERS: ATTEND Nurse Practitioner Family | DX: D47.2 Monoclonal gammopathy (principal) ==

== ENCOUNTER → 2022-02-27 | Outpatient (REF) | payer MEDICARE, MEDICAID ==
[2022-02-27 11:57] LABS: BASO % 0.5 % (0.0-1.0); EOS # 0.1 10^3/uL (0.0-0.5); HEMATOCRIT 43.4 % (36.0-47.0); HEMOGLOBIN 13.5 g/dl (12.0-15.5); LYMPH # 1.2 10^3/uL (1.5-5.0); LYMPH % 19.3 % (24.0-44.0); MEAN CORPUSCULAR HEMOGLOBIN 28.6 pg (27.0-33.0); MEAN CORPUSCULAR HGB CONC 31.1 g/dl (32.0-36.5); MEAN CORPUSCULAR VOLUME 91.9 fl (80.0-96.0); MONO # 0.4 10^3/uL (0.0-0.8); MONO % 6.3 % (2.0-8.0); NEUTROPHILS # 4.5 10^3/uL (1.5-8.5); NEUTROPHILS % 72.3 % (36.0-66.0); PLATELET COUNT, AUTOMATED 276 10^3/uL (150-450); RED BLOOD COUNT 4.72 10^6/uL (4.00-5.40); WHITE BLOOD COUNT 6.2 10^3/uL (4.0-10.0)
[2022-02-27 12:47] LABS: TOTAL PROTEIN 7.2 GM/DL (6.4-8.2)
[2022-02-27 13:12] LABS: ALBUMIN 3.1 GM/DL (3.2-5.2); BILIRUBIN,TOTAL 0.5 MG/DL (0.2-1.0); CALCIUM LEVEL 9.3 MG/DL (8.8-10.2); CREATININE FOR GFR 1.55 MG/DL (0.55-1.30); GLOMERULAR FILTRATION RATE 33.5 (>32); POTASSIUM SERUM 3.6 MEQ/L (3.5-5.1); TOTAL PROTEIN 7.1 GM/DL (6.4-8.2)
[2022-02-28 08:31] LABS: THYROID STIMULATING HORMONE 2.89 uIU/ML (0.358-3.740)
[2022-03-01 09:15] LABS: ALBUMIN % 48.4 % (55.8-66.1)
[2022-03-01 09:16] LABS: ALBUMIN 3.48 GM/DL (3.29-5.55); ALPHA-1-GLOBULIN % 6.2 % (2.9-4.9); ALPHA-1-GLOBULINS 0.45 GM/DL (0.17-0.41); ALPHA-2-GLOBULINS % 15.3 % (7.1-11.8); BETA-1-GLOBULINS 0.45 GM/DL (0.28-0.60); BETA-1-GLOBULINS % 6.2 % (4.7-7.2); BETA-2-GLOBULINS 0.46 GM/DL (0.19-0.55); BETA-2-GLOBULINS % 6.4 % (3.2-6.5); GAMMA GLOBULIN % 17.5 % (11.1-18.8); GAMMA GLOBULINS 1.26 GM/DL (0.65-1.58)
== END ==
PROVIDERS: ATTEND Nurse Practitioner Family
DX: D47.2 Monoclonal gammopathy (principal); Z79.899 Other long term (current) drug therapy

== ENCOUNTER → 2022-04-12 | Outpatient (REF) | payer MEDICARE, MEDICAID | PROVIDERS: ATTEND Nurse Practitioner Family | DX: N39.0 Urinary tract infection, site not specified (principal) ==

== ENCOUNTER → 2022-04-15 | Outpatient (REF) | payer MEDICARE, MEDICAID ==
[2022-04-15 09:39] LABS: HEMATOCRIT 42.6 % (36.0-47.0); HEMOGLOBIN 13.4 g/dl (12.0-15.5); MEAN CORPUSCULAR HEMOGLOBIN 29.1 pg (27.0-33.0); MEAN CORPUSCULAR HGB CONC 31.5 g/dl (32.0-36.5); MEAN CORPUSCULAR VOLUME 92.4 fl (80.0-96.0); PLATELET COUNT, AUTOMATED 300 10^3/uL (150-450); RED BLOOD COUNT 4.61 10^6/uL (4.00-5.40); WHITE BLOOD COUNT 4.9 10^3/uL (4.0-10.0)
[2022-04-15 10:21] LABS: CALCIUM LEVEL 9.2 MG/DL (8.8-10.2); CREATININE FOR GFR 1.65 MG/DL (0.55-1.30); GLOMERULAR FILTRATION RATE 31.2 (>32); POTASSIUM SERUM 4.1 MEQ/L (3.5-5.1)
== END ==
PROVIDERS: ATTEND Nurse Practitioner Family
DX: N18.30 Chronic kidney disease, stage 3 unspecified (principal); N39.0 Urinary tract infection, site not specified

== ENCOUNTER → 2022-05-01 | Outpatient (REF) | payer MEDICARE, MEDICAID ==
[~2022-05-01] MED LIST changes: -DOXY-350 PO; +DOXY-444 PO
[2022-05-01 11:26] LABS: CALCIUM LEVEL 8.9 MG/DL (8.8-10.2); CREATININE FOR GFR 2.15 MG/DL (0.55-1.30); PHOSPHORUS LEVEL 4.7 MG/DL (2.5-4.9)
== END ==
PROVIDERS: ATTEND Nurse Practitioner Family
DX: I50.9 Heart failure, unspecified (principal)

== ENCOUNTER → 2022-05-08 | Outpatient (REF) | payer MEDICARE, MEDICAID ==
[2022-05-08 11:16] LABS: ALBUMIN 3.6 G/DL (3.2-5.2); CALCIUM LEVEL 9.7 MG/DL (8.3-10.6); CREATININE FOR GFR 1.89 MG/DL (0.55-1.30); GLOMERULAR FILTRATION RATE 26.7 (>32); PHOSPHORUS LEVEL 5.2 MG/DL (2.4-5.1); POTASSIUM SERUM 3.2 MMOL/L (3.5-5.1)
== END ==
PROVIDERS: ATTEND Nurse Practitioner Family
DX: N18.9 Chronic kidney disease, unspecified (principal)

== ENCOUNTER → 2022-05-13 | Outpatient (REF) | payer MEDICARE, MEDICAID ==
[2022-05-13 10:49] LABS: ALBUMIN 3.1 G/DL (3.2-5.2); CALCIUM LEVEL 8.6 MG/DL (8.3-10.6); CREATININE FOR GFR 1.45 MG/DL (0.55-1.30); GLOMERULAR FILTRATION RATE 36.2 (>32); PHOSPHORUS LEVEL 3.7 MG/DL (2.4-5.1); POTASSIUM SERUM 4.1 MMOL/L (3.5-5.1)
== END ==
PROVIDERS: ATTEND Nurse Practitioner Family
DX: I50.9 Heart failure, unspecified (principal)

== ENCOUNTER → 2022-05-20 | Outpatient (REF) | payer MEDICARE, MEDICAID ==
[2022-05-20 11:04] LABS: POTASSIUM SERUM 3.3 MMOL/L (3.5-5.1)
[2022-05-20 11:05] LABS: ALBUMIN 3.2 G/DL (3.2-5.2)
[2022-05-20 11:10] LABS: CALCIUM LEVEL 9.1 MG/DL (8.3-10.6)
[2022-05-20 11:12] LABS: CREATININE FOR GFR 1.33 MG/DL (0.55-1.30)
[2022-05-20 11:13] LABS: PHOSPHORUS LEVEL 3.3 MG/DL (2.4-5.1)
== END ==
PROVIDERS: ATTEND Internal Medicine
DX: I50.9 Heart failure, unspecified (principal)

== ENCOUNTER → 2022-05-27 | Outpatient (REF) | payer MEDICARE, MEDICAID ==
[2022-05-27 12:15] LABS: CALCIUM LEVEL 8.6 MG/DL (8.3-10.6); CREATININE FOR GFR 1.31 MG/DL (0.55-1.30); GLOMERULAR FILTRATION RATE 40.7 (>32); PHOSPHORUS LEVEL 3.3 MG/DL (2.4-5.1); POTASSIUM SERUM 4.2 MMOL/L (3.5-5.1); PTH INTACT 241.9 PG/ML (18.5-88.0)
[2022-05-27 12:18] LABS: TOTAL 25(OH) VITAMIN D 28.2 NG/ML (20.0-100.0)
== END ==
PROVIDERS: ATTEND Internal Medicine
DX: I50.30 Unspecified diastolic (congestive) heart failure (principal); N25.81 Secondary hyperparathyroidism of renal origin

== ENCOUNTER → 2022-06-17 | Outpatient (REF) | payer MEDICARE, MEDICAID | PROVIDERS: ATTEND Internal Medicine | DX: N18.9 Chronic kidney disease, unspecified (principal); Z53.8 Procedure and treatment not carried out for other reasons ==

== ENCOUNTER → 2022-06-19 | Outpatient (REF) | payer MEDICARE, MEDICAID ==
[2022-06-19 10:04] LABS: BASO % 0.3 % (0.0-1.0); EOS # 0.1 10^3/uL (0.0-0.5); EOS % 0.8 % (0.0-3.0); HEMATOCRIT 44.9 % (36.0-47.0); HEMOGLOBIN 14.3 g/dl (12.0-15.5); LYMPH # 1.4 10^3/uL (1.5-5.0); LYMPH % 14.2 % (24.0-44.0); MEAN CORPUSCULAR HEMOGLOBIN 29.2 pg (27.0-33.0); MEAN CORPUSCULAR HGB CONC 31.8 g/dl (32.0-36.5); MEAN CORPUSCULAR VOLUME 91.6 fl (80.0-96.0); MONO # 0.8 10^3/uL (0.0-0.8); MONO % 8.6 % (2.0-8.0); NEUTROPHILS # 7.2 10^3/uL (1.5-8.5); NEUTROPHILS % 75.5 % (36.0-66.0); PLATELET COUNT, AUTOMATED 270 10^3/uL (150-450); WHITE BLOOD COUNT 9.6 10^3/uL (4.0-10.0)
[2022-06-19 10:30] LABS: ALBUMIN 3.3 G/DL (3.2-5.2); BILIRUBIN,TOTAL 1.2 MG/DL (0.3-1.2); CREATININE FOR GFR 1.78 MG/DL (0.55-1.30); GLOMERULAR FILTRATION RATE 28.6 (>32); PHOSPHORUS LEVEL 4.4 MG/DL (2.4-5.1); POTASSIUM SERUM 3.2 MMOL/L (3.5-5.1); TOTAL PROTEIN 7.7 G/DL (5.7-8.2)
== END ==
PROVIDERS: ATTEND Nurse Practitioner Family
DX: I50.9 Heart failure, unspecified (principal)

== ENCOUNTER → 2022-06-21 | Outpatient (REF) | payer MEDICARE, MEDICAID | PROVIDERS: ATTEND Internal Medicine | DX: N18.9 Chronic kidney disease, unspecified (principal); Z53.8 Procedure and treatment not carried out for other reasons ==

== ENCOUNTER → 2022-06-24 | Outpatient (REF) | payer MEDICARE, MEDICAID ==
[2022-06-24 09:44] LABS: ALBUMIN 3.1 G/DL (3.2-5.2); CALCIUM LEVEL 9.2 MG/DL (8.3-10.6); CREATININE FOR GFR 1.12 MG/DL (0.55-1.30); GLOMERULAR FILTRATION RATE 48.8 (>32); PHOSPHORUS LEVEL 3.2 MG/DL (2.4-5.1); POTASSIUM SERUM 5.1 MMOL/L (3.5-5.1)
== END ==
PROVIDERS: ATTEND Nurse Practitioner Family
DX: I50.9 Heart failure, unspecified (principal)

== ENCOUNTER → 2022-07-08 | Outpatient (REF) | payer MEDICARE, MEDICAID ==
[2022-07-08 11:13] LABS: CALCIUM LEVEL 9.5 MG/DL (8.3-10.6); CREATININE FOR GFR 1.53 MG/DL (0.55-1.30); POTASSIUM SERUM 3.6 MMOL/L (3.5-5.1)
== END ==
PROVIDERS: ATTEND Internal Medicine
DX: I50.9 Heart failure, unspecified (principal)

== ENCOUNTER → 2022-07-24 | Outpatient (REF) | payer MEDICARE, MEDICAID ==
[2022-07-24 12:02] LABS: CALCIUM LEVEL 8.9 MG/DL (8.3-10.6); CREATININE FOR GFR 1.81 MG/DL (0.55-1.30); PHOSPHORUS LEVEL 4.1 MG/DL (2.4-5.1); POTASSIUM SERUM 3.6 MMOL/L (3.5-5.1)
== END ==
PROVIDERS: ATTEND Nurse Practitioner Family
DX: I50.9 Heart failure, unspecified (principal)

== ENCOUNTER → 2022-07-28 | Outpatient (REF) | payer MEDICARE, MEDICAID | PROVIDERS: ATTEND Nurse Practitioner Family | DX: I50.9 Heart failure, unspecified (principal); Z53.8 Procedure and treatment not carried out for other reasons ==

== ENCOUNTER → 2022-07-28 | Outpatient (CLI) | payer MEDICARE, MEDICAID ==
[2022-07-28 10:19] LABS: ALBUMIN 2.9 G/DL (3.2-5.2); CALCIUM LEVEL 9.3 MG/DL (8.3-10.6); CREATININE FOR GFR 1.65 MG/DL (0.55-1.30); GLOMERULAR FILTRATION RATE 31.2 (>32); PHOSPHORUS LEVEL 4.1 MG/DL (2.4-5.1); POTASSIUM SERUM 4.1 MMOL/L (3.5-5.1)
== END ==
LOC: M LAB 09:47
PROVIDERS: ATTEND Internal Medicine
DX: I50.9 Heart failure, unspecified (principal)

== ENCOUNTER → 2022-07-31 | Outpatient (REF) | payer MEDICARE, MEDICAID ==
[2022-07-31 11:25] LABS: HEMATOCRIT 40.4 % (36.0-47.0); HEMOGLOBIN 12.7 g/dl (12.0-15.5); MEAN CORPUSCULAR HEMOGLOBIN 29.1 pg (27.0-33.0); MEAN CORPUSCULAR HGB CONC 31.4 g/dl (32.0-36.5); MEAN CORPUSCULAR VOLUME 92.7 fl (80.0-96.0); PLATELET COUNT, AUTOMATED 450 10^3/uL (150-450); RED BLOOD COUNT 4.36 10^6/uL (4.00-5.40); WHITE BLOOD COUNT 11.2 10^3/uL (4.0-10.0)
[2022-07-31 11:51] LABS: CALCIUM LEVEL 9.2 MG/DL (8.3-10.6); CREATININE FOR GFR 1.64 MG/DL (0.55-1.30); GLOMERULAR FILTRATION RATE 31.4 (>32); POTASSIUM SERUM 4.2 MMOL/L (3.5-5.1)
[2022-07-31 11:52] LABS: THYROID STIMULATING HORMONE 2.405 uIU/ML (0.55-4.78)
== END ==
PROVIDERS: ATTEND Internal Medicine
DX: N18.9 Chronic kidney disease, unspecified (principal); Z79.899 Other long term (current) drug therapy

== ENCOUNTER → 2022-08-12 | Outpatient (REF) | payer MEDICARE, MEDICAID ==
[2022-08-12 10:49] LABS: ALBUMIN 2.7 G/DL (3.2-5.2); CALCIUM LEVEL 8.9 MG/DL (8.3-10.6); CREATININE FOR GFR 1.18 MG/DL (0.55-1.30); GLOMERULAR FILTRATION RATE 45.9 (>32); PHOSPHORUS LEVEL 3.2 MG/DL (2.4-5.1); POTASSIUM SERUM 4.2 MMOL/L (3.5-5.1)
== END ==
PROVIDERS: ATTEND Internal Medicine
DX: I50.9 Heart failure, unspecified (principal)

== ENCOUNTER → 2022-09-30 | Outpatient (REF) | payer MEDICARE, MEDICAID ==
[~2022-09-30] MED LIST changes: +ARTIDRO4 OU; +FLUT50SP17; -FLUTISP; -POLYOPD OU
[2022-09-30 09:25] LABS: BASO % 0.5 % (0.0-1.0); EOS # 0.1 10^3/uL (0.0-0.5); EOS % 0.8 % (0.0-3.0); HEMATOCRIT 38.4 % (36.0-47.0); HEMOGLOBIN 11.9 g/dl (12.0-15.5); LYMPH % 16.4 % (24.0-44.0); MEAN CORPUSCULAR HEMOGLOBIN 29.1 pg (27.0-33.0); MEAN CORPUSCULAR VOLUME 93.9 fl (80.0-96.0); MONO # 0.8 10^3/uL (0.0-0.8); MONO % 13.3 % (2.0-8.0); NEUTROPHILS # 4.1 10^3/uL (1.5-8.5); NEUTROPHILS % 68.7 % (36.0-66.0); PLATELET COUNT, AUTOMATED 261 10^3/uL (150-450); RED BLOOD COUNT 4.09 10^6/uL (4.00-5.40)
[2022-09-30 09:46] LABS: ALBUMIN 2.9 G/DL (3.2-5.2); CALCIUM LEVEL 8.2 MG/DL (8.3-10.6); CREATININE FOR GFR 1.19 MG/DL (0.55-1.30); GLOMERULAR FILTRATION RATE 45.5 (>32); PHOSPHORUS LEVEL 3.1 MG/DL (2.4-5.1); POTASSIUM SERUM 4.1 MMOL/L (3.5-5.1)
[2022-09-30 09:47] LABS: PTH INTACT 280.8 PG/ML (18.5-88.0)
[2022-09-30 09:49] LABS: TOTAL 25(OH) VITAMIN D 26.1 NG/ML (20.0-100.0)
== END ==
PROVIDERS: ATTEND Internal Medicine
DX: I50.9 Heart failure, unspecified (principal); N18.9 Chronic kidney disease, unspecified; Z79.899 Other long term (current) drug therapy

== ENCOUNTER → 2022-12-13 | Outpatient (REF) | payer MEDICARE, MEDICAID ==
[2022-12-13 09:09] LABS: HEMATOCRIT 40.8 % (36.0-47.0); HEMOGLOBIN 12.6 g/dl (12.0-15.5); MEAN CORPUSCULAR HEMOGLOBIN 27.1 pg (27.0-33.0); MEAN CORPUSCULAR HGB CONC 30.9 g/dl (32.0-36.5); MEAN CORPUSCULAR VOLUME 87.7 fl (80.0-96.0); PLATELET COUNT, AUTOMATED 321 10^3/uL (150-450); RED BLOOD COUNT 4.65 10^6/uL (4.00-5.40); WHITE BLOOD COUNT 6.1 10^3/uL (4.0-10.0)
[2022-12-13 09:58] LABS: ALBUMIN 3.2 G/DL (3.2-5.2); CREATININE FOR GFR 1.46 MG/DL (0.55-1.30); GLOMERULAR FILTRATION RATE 35.9 (>32); POTASSIUM SERUM 3.6 MMOL/L (3.5-5.1)
== END ==
PROVIDERS: ATTEND Nurse Practitioner Family
DX: I50.9 Heart failure, unspecified (principal)